=== PATIENT | female | born 1965 | race Caucasian/White ===

== ENCOUNTER 2016-10-16 09:37 | Inpatient (IN) | payer OTHER ==
[2016-10-16] MEDS ORDERED: Sodium Chloride 0.9% 1,000 ML IV ONE ×3 (10:08→14:21)
[2016-10-16] MEDS ORDERED: Sodium Chloride 0.9% 1,000 ML ONE (10:27)
[2016-10-16 10:54] LABS: BASO % 0.3 % (0.0-2.0); EOS % 0.2 % (0.0-4.0); HEMATOCRIT 42.4 % (34.0-47.0); LYMPH # 3.7 K/uL (1.0-4.3); LYMPH % 30.4 % (20.0-40.0); MEAN CELL VOLUME 87.3 fL (81.0-99.0); MEAN CORPUSCULAR HEMOGLOBIN 28.6 pg (27.0-31.0); MEAN CORPUSCULAR HGB CONC 32.8 g/dL (33.0-37.0); MONO # 1.1 K/uL (0.0-0.8); MONO % 8.9 % (0.0-10.0); RED CELL DISTRIBUTION WIDTH 13.5 % (11.5-14.5); WHITE BLOOD COUNT 12.1 K/uL (4.8-10.8)
[2016-10-16 10:57] LABS: RBC URINE 1 /hpf (0-3); URINE BACTERIA RARE (<OCC); URINE BILIRUBIN NEGATIVE (NEGATIVE); URINE BLOOD NEGATIVE (NEGATIVE); URINE COLOR Yellow (YELLOW); URINE GLUCOSE (UA) 3+ mg/dL (Normal); URINE KETONE 2+ mg/dL (NEGATIVE); URINE LEUKOCYTE ESTERASE NEG Leu/uL (Negative); URINE PROTEIN 2+ mg/dL (NEGATIVE); URINE UROBILINOGEN NORMAL mg/dL (0.2-1.0); WBC URINE 2 /hpf (0-5)
[2016-10-16 11:11] LABS: CHLORIDE 97 mmol/L (98-107); POTASSIUM 3.9 mmol/L (3.6-5.2); SODIUM 138 mmol/L (132-148)
[2016-10-16 11:13] LABS: BILIRUBIN,TOTAL 2.8 mg/dL (0.2-1.3); GFR AFRICAN-AMERICAN > 60
[2016-10-16 11:14] LABS: ALKALINE PHOSPHATASE 289 U/L (38-126); ALT/SGPT 303 U/L (9-52); AST/SGOT 637 U/L (14-36); BLOOD UREA NITROGEN 11 mg/dL (7-17); CARBON DIOXIDE 18 mmol/L (22-30); GLUCOSE,RANDOM 392 mg/dL (65-105); TOTAL PROTEIN 8.1 g/dL (6.3-8.3)
[2016-10-16] MEDS ORDERED: (Novolin R) Insulin Human Regular 100 units/ml vial SC ONE (11:18)
--- NOTE | 2016-10-16 11:20 | US ---
HISTORY: ruq pain +murphys sign COMPARISON: None available. TECHNIQUE: Sonographic evaluation of the abdomen. FINDINGS: LIVER: Measures 24.9 cm in sagittal dimension. Echogenic liver may be seen in setting of hepatic parenchymal disease or fatty infiltration. No focal hepatic mass identified. The main portal vein appears patent with normal directional flow. No intrahepatic bile duct dilatation. GALLBLADDER: Gallbladder sludge. No gallstones. Gallbladder wall thickening/pericholecystic edema measuring up to 5 mm. Positive sonographic Enriquez's sign as assessed by the pattern technician. COMMON BILE DUCT: Measures 1 cm. PANCREAS: Not well visualized. RIGHT KIDNEY: Measures 12.3 x 5.8 x 6.1cm. No obstructing calculus or hydronephrosis identified. 2.4 x 2.4 x 2.8 cm right exophytic renal cyst. LEFT KIDNEY: Measures 11.4 x 5.8 x 6.2cm. No obstructing calculus or hydronephrosis identified. SPLEEN: Measures approximately 10.4 cm. AORTA: Limited views appear unremarkable. IVC: Limited views appear unremarkable. OTHER FINDINGS: None. IMPRESSION: Gallbladder sludge, gallbladder wall thickening/pericholecystic edema, and positive sonographic Enriquez's sign. Correlate clinically for cholecystitis. Hepatomegaly. Echogenic liver may be seen in setting of hepatic parenchymal disease or fatty infiltration. 2.8 cm right renal cyst appears exophytic.
[2016-10-16] MEDS ORDERED: (Novolin R) Insulin Human Regular 100 units/ml vial ONE ×2 (11:33→14:28)
--- NOTE | 2016-10-16 11:42 | C.PDOC ---
History Of Present Illness 51 year old female with a history of HTN and diabetes presents to the ED with complaints of burning RUQ abdominal pain for two days that began after drinking hot chocolate. Patient notes nausea, one episode of vomiting, and subjective fever. She states she used pepcid with mild relief but pain returned. Patient denies prior similar episodes, diarrhea, or urinary symptoms. Time Seen by Provider: 10/16/16 09:46 Chief Complaint (Nursing): Abdominal Pain History Per: Patient History/Exam Limitations: no limitations Onset/Duration Of Symptoms: Days (2 days ) Current Symptoms Are (Timing): Still Present Location Of Pain/Discomfort: RUQ Quality Of Discomfort: Burning Associated Symptoms: Nausea, Vomiting. denies: Fever, Chills, Diarrhea, Urinary Symptoms Recent travel outside of the [place]: No Abnormal Vaginal Bleeding: No Past Medical History Reviewed: Historical Data, Nursing Documentation, Vital Signs Vital Signs: Last Vital Signs Temp 97.9 F 10/16/16 09:43 Pulse 91 H 10/16/16 17:49 Resp 20 10/16/16 17:49 BP 152/88 H 10/16/16 16:23 Pulse Ox 95 10/16/16 17:49 - Medical History PMH: HTN Family History: States: Unknown Family Hx - Social History Hx Alcohol Use: No Hx Substance Use: No - Immunization History Hx Tetanus Toxoid Vaccination: No Hx Influenza Vaccination: No Hx Pneumococcal Vaccination: No Review Of Systems Constitutional: Positive for: Fever. Negative for: Chills Cardiovascular: Negative for: Chest Pain, Palpitations Respiratory: Negative for: Cough, Shortness of Breath Gastrointestinal: Positive for: Nausea, Vomiting, Abdominal Pain. Negative for : Diarrhea Genitourinary: Negative for: Dysuria, Hematuria Musculoskeletal: Negative for: Back Pain Physical Exam - Physical Exam Appears: Non-toxic, In Acute Distress (patient appears very uncomfortable on exam ) Skin: Warm, Dry Head: Atraumatic, Normacephalic Eye(s): bilateral: Normal Inspection, EOMI Oral Mucosa: Moist Neck: Normal ROM, Supple Chest: Symmetrical, No Deformity Cardiovascular: Rhythm Regular, No Murmur Respiratory: Normal Breath Sounds, No Rales, No Rhonchi, No Wheezing Gastrointestinal/Abdominal: Bowel Sounds, Soft, Tenderness (epigastric and RUQ tenderness ), No Distention, No Guarding, No Rebound, Other (Positive Enriquez's sign ) Neurological/Psych: Oriented x3, Normal Speech, Normal Cognition ED Course And Treatment - Laboratory Results Result Diagrams: 10/16/16 10:26 10/16/16 13:09 O2 Sat by Pulse Oximetry: 97 (room air ) Progress Note: Venous study was ordered. Patient was given pepcid, zofran, insulin, and IV fluids. Medical Decision Making Medical Decision Making: message left for Dr Orta discussed with [facility] resident Dr Benz, he will come see pt. [address] Benz, surg resident. pt should go to med for gi consult/ercp/ mprc discussed with Dr Paredes/icu for consult for possible dka;. He recommends another liter ivf, some iv insulin, gi consult. does not think pt needs insulin drip at this time. [address] Coffman pt seen by Dr Coffman at 250 pm, mrcp ordered. pt later went to mri for test but refused. pt returned to ed. pt spoke with and now agrees to test, will send to test with ativan. pt to be admitted to icu for tonight. , Disposition Discussed With Dr.: David Del Castillo Doctor Will See Patient In The: Hospital - Disposition Disposition: HOSPITALIZED Disposition Time: 17:06 Condition: SERIOUS - Clinical Impression Clinical Impression: Cholecystitis, Abnormal LFTs (liver function tests), Hyperglycemia due to type 2 diabetes mellitus - Scribe Statement The provider has reviewed the documentation as recorded by the Scribe Kierra Ngo All medical record entries made by the Scribe were at my direction and personally dictated by me. I have reviewed the chart and agree that the record accurately reflects my personal performance of the history, physical exam, medical decision making, and the department course for this patient. I have also personally directed, reviewed, and agree with the discharge instructions and disposition.
[2016-10-16 11:49] LABS: VENOUS BLOOD GAS BASE EXCESS -8.1 mmol/L (0.0-2.0); VENOUS BLOOD GAS PCO2 37 mmHg (40-60); VENOUS BLOOD PH 7.29 (7.32-7.43)
[2016-10-16] MEDS ORDERED: Ciprofloxacin 400mg/200ml D5W 400 MG/200 ML BAG IVPB STA (12:05)
[2016-10-16] MEDS ORDERED: metroNIDAZOLE IV 500 mg/100 ml 500 MG/100 ML BAG IVPB STA (12:05)
[2016-10-16] MEDS ORDERED: metroNIDAZOLE IV 500 mg/100 ml 500 MG/100 ML BAG ONE (12:38)
[2016-10-16] MEDS ORDERED: Ciprofloxacin 400mg/200ml D5W 400 MG/200 ML BAG IVPB ONE (12:38)
[2016-10-16] MEDS ORDERED: Sodium Chloride 0.9% 1,000 ML IV SCH (13:00)
[2016-10-16 13:27] LABS: CHLORIDE 103 mmol/L (98-107); POTASSIUM 4.3 mmol/L (3.6-5.2); SODIUM 141 mmol/L (132-148)
[2016-10-16 13:29] LABS: BILIRUBIN,TOTAL 3.1 mg/dL (0.2-1.3); GFR AFRICAN-AMERICAN > 60
[2016-10-16 13:30] LABS: ALKALINE PHOSPHATASE 280 U/L (38-126); ALT/SGPT 446 U/L (9-52); BLOOD UREA NITROGEN 10 mg/dL (7-17); CARBON DIOXIDE 15 mmol/L (22-30); GLUCOSE,RANDOM 335 mg/dL (65-105); TOTAL PROTEIN 7.7 g/dL (6.3-8.3)
[2016-10-16 13:31] LABS: CALCIUM 9.2 mg/dl (8.6-10.4)
[2016-10-16 13:57] LABS: AST/SGOT 812 U/L (14-36)
[2016-10-16] MEDS ORDERED: (Novolin R) Insulin Human Regular 100 units/ml vial IV ONE (14:22)
--- NOTE | 2016-10-16 15:34 | CP.PCM.CON ---
History of Present Illness - History of Present Illness History of Present Illness: Asked by Dr. Del Castillo for a GI consultation on this patient. 51 year old female with history of DM, HTN, who presents to hospital with complaint of sudden onset abdominal pain which began 2 days ago. Prior to this she was in usual state of health. She describes a severe RUQ 10/10 intensity pain that is worse following meal consumption and movement. The pain at times radiates to back and is associated with nausea. She denies fever/chills, weight loss, rectal bleeding, or change in bowel habits. No prior endoscopic evaluation. Social history: non-smoker, no ETOH use Family history: reviewed, patient denies history of colon cancer Review of Systems - Review of Systems Review of Systems: - All other comprehensive 12 point review of systems performed, negative - Constitutional Constitutional: Chills - Cardiovascular Cardiovascular: absent: Acrocyanosis, Chest Pain, Chest Pain at Rest, Chest Pain with Activity, Claudication, Diaphoresis, Dyspnea, Dyspnea on Exertion, Edema, Irregular Heart Rhythm, Pain Radiating to Arm/Neck/Jaw, Leg Edema, Leg Ulcers, Lightheadedness, Orthopnea, Palpitations, Paroxysmal Nocturnal Dyspnea, Pedal Edema, Radiating Pain, Rapid Heart Rate, Slow Heart Rate, Syncope, Other - Respiratory Respiratory: absent: Cough, Dyspnea, Hemoptysis, Dyspnea on Exertion, Wheezing, Snoring, Stridor, Pain on Inspiration, Chest Congestion, Excessive Mucous Production, Change in Mucous Color, Pain with Coughing, Other - Gastrointestinal Gastrointestinal: Abdominal Pain, Nausea - Musculoskeletal Musculoskeletal: absent: Abnormal Gait, Arthralgias, Atrophy, Back Pain, Deformity, Joint Swelling, Limited Range of Motion, Loss of Height, Muscle Cramps, Muscle Weakness, Myalgias, Neck Pain, Numbness, Radiating Pain into Limb , Stiffness, Tingling, Other - Neurological Neurological: absent: Abnormal Gait, Abnormal Hearing, Abnormal Movements, Abnormal Speech, Behavioral Changes, Burning Sensations, Confusion, Convulsions , Disequilibrium, Dizziness, Numbness, Focal Weakness, Frequent Falls, Headaches , Lack of Coordination, Loss of Vision, Memory Loss, Paresthesias, Radicular Pain, Restless Legs, Sensory Deficit, Syncope, Tingling, Tremor, Vertigo, Weakness, Other Visual Disturbances, Other Past Patient History - Past Social History Smoking Status: Never Smoked - CARDIAC Hx Hypertension: Yes - ENDOCRINE/METABOLIC Hx Diabetes Mellitus Type 2: Yes - GENITOURINARY/GYNECOLOGICAL Hx Genitourinary Disorders: Yes - PSYCHIATRIC Hx Substance Use: No - SURGICAL HISTORY Hx Surgeries: No - ANESTHESIA Hx Anesthesia: No Meds Allergies/Adverse Reactions: Allergies Allergy/AdvReac Type Severity Reaction Status Date / Time Penicillins Allergy Verified 10/16/16 09:46 - Medications Medications: Current Medications Sodium Chloride (Sodium Chloride 0.9%) 1,000 mls @ 100 mls/hr IV .Q10H ONE Stop: 10/16/16 20:07 Last Admin: 10/16/16 10:37 Dose: 100 mls/hr Sodium Chloride (Sodium Chloride 0.9%) 1,000 mls @ 100 mls/hr IV .Q10H [facility] Last Admin: 10/16/16 14:25 Dose: Not Given Physical Exam - Constitutional Appears: Non-toxic, No Acute Distress - Head Exam Head Exam: NORMAL INSPECTION - Eye Exam Eye Exam: EOMI, Normal appearance - ENT Exam ENT Exam: Mucous Membranes Moist - Respiratory Exam Respiratory Exam: Clear to Auscultation Bilateral - Cardiovascular Exam Cardiovascular Exam: REGULAR RHYTHM, +S1, +S2 - GI/Abdominal Exam GI & Abdominal Exam: Normal Bowel Sounds, Soft, Tenderness Additional comments: sharp RUQ tenderness to palpation with guarding, +Enriquez's no palpable hepato/splenomegaly - Extremities Exam Extremities exam: Positive for: normal inspection - Neurological Exam Neurological exam: Alert, CN II-XII Intact, Oriented x3, Reflexes Normal - Psychiatric Exam Psychiatric exam: Normal Affect, Normal Mood - Skin Skin Exam: Dry, Intact, Normal Color, Warm Results - Vital Signs Recent Vital Signs: Last Vital Signs Temp 97.9 F 10/16/16 09:43 Pulse 95 H 10/16/16 15:03 Resp 18 10/16/16 15:03 BP 154/87 H 10/16/16 15:03 Pulse Ox 96 10/16/16 15:03 - Labs Result Diagrams: 10/16/16 10:26 10/16/16 13:09 Labs: Laboratory Results - last 24 hr 10/16/16 10/16/16 10/16/16 10:08 10:26 10:26 WBC 12.1 H RBC 4.86 Hgb 13.9 Hct 42.4 MCV 87.3 MCH 28.6 MCHC 32.8 L RDW 13.5 Plt Count 220 MPV 10.0 Neut % (Auto) 60.2 Lymph % (Auto) 30.4 [place] % (Auto) 8.9 Eos % (Auto) 0.2 Baso % (Auto) 0.3 Neut # 7.3 H Lymph # 3.7 [place] # 1.1 H Eos # 0.0 Baso # 0.0 pO2 VBG pH VBG pCO2 VBG HCO3 VBG Total CO2 VBG O2 Sat (Calc) VBG Base Excess VBG Potassium Glucose Lactate Sodium 138 Potassium 3.9 Chloride 97 L Carbon Dioxide 18 L Anion Gap 27 H BUN 11 Creatinine 0.6 L Est GFR ( Amer) > 60 Est GFR (Non-Af Amer) > 60 POC Glucose (mg/dL) Random Glucose 392 H Serum Osmolality Calcium 10.0 Total Bilirubin 2.8 H AST 637 H ALT 303 H Alkaline Phosphatase 289 H Total Protein 8.1 Albumin 4.1 Globulin 4.0 H Albumin/Globulin Ratio 1.0 Lipase 95 Venous Blood Potassium Urine Color Yellow Urine Clarity Clear Urine pH 5.0 Ur Specific [place] 1.033 H Urine Protein 2+ H Urine Glucose (UA) 3+ H Urine Ketones 2+ H Urine Blood Negative Urine Nitrate Negative Urine Bilirubin Negative Urine Urobilinogen Normal Ur Leukocyte Esterase Neg Urine WBC (Auto) 2 Urine RBC (Auto) 1 Ur Squamous Epith Cells 4 Urine Bacteria Rare Serum Ketones 10/16/16 10/16/16 10/16/16 10:30 11:40 12:49 WBC RBC Hgb Hct MCV MCH MCHC RDW Plt Count MPV Neut % (Auto) Lymph % (Auto) [place] % (Auto) Eos % (Auto) Baso % (Auto) Neut # Lymph # [place] # Eos # Baso # pO2 36 VBG pH 7.29 L VBG pCO2 37 L VBG HCO3 17.6 VBG Total CO2 18.9 L VBG O2 Sat (Calc) 69.3 H VBG Base Excess -8.1 L VBG Potassium 3.9 Glucose 392 H Lactate 1.4 Sodium 136.0 Potassium Chloride 103.0 Carbon Dioxide Anion Gap BUN Creatinine Est GFR ( Amer) Est GFR (Non-Af Amer) POC Glucose (mg/dL) 364 H 327 H Random Glucose Serum Osmolality Calcium Total Bilirubin AST ALT Alkaline Phosphatase Total Protein Albumin Globulin Albumin/Globulin Ratio Lipase Venous Blood Potassium 3.9 Urine Color Urine Clarity Urine pH Ur Specific [place] Urine Protein Urine Glucose (UA) Urine Ketones Urine Blood Urine Nitrate Urine Bilirubin Urine Urobilinogen Ur Leukocyte Esterase Urine WBC (Auto) Urine RBC (Auto) Ur Squamous Epith Cells Urine Bacteria Serum Ketones 10/16/16 10/16/16 10/16/16 13:09 14:25 15:06 WBC RBC Hgb Hct MCV MCH MCHC RDW Plt Count MPV Neut % (Auto) Lymph % (Auto) [place] % (Auto) Eos % (Auto) Baso % (Auto) Neut # Lymph # [place] # Eos # Baso # pO2 VBG pH VBG pCO2 VBG HCO3 VBG Total CO2 VBG O2 Sat (Calc) VBG Base Excess VBG Potassium Glucose Lactate Sodium 141 Potassium 4.3 Chloride 103 Carbon Dioxide 15 L Anion Gap 27 H BUN 10 Creatinine 0.5 L Est GFR ( Amer) > 60 Est GFR (Non-Af Amer) > 60 POC Glucose (mg/dL) 334 H Random Glucose 335 H Serum Osmolality 302 H Calcium 9.2 Total Bilirubin 3.1 H AST 812 H D ALT 446 H D Alkaline Phosphatase 280 H Total Protein 7.7 Albumin 3.9 Globulin 3.8 Albumin/Globulin Ratio 1.0 Lipase Venous Blood Potassium Urine Color Urine Clarity Urine pH Ur Specific [place] Urine Protein Urine Glucose (UA) Urine Ketones Urine Blood Urine Nitrate Urine Bilirubin Urine Urobilinogen Ur Leukocyte Esterase Urine WBC (Auto) Urine RBC (Auto) Ur Squamous Epith Cells Urine Bacteria Serum Ketones Trace Assessment & Plan - Assessment and Plan (Free Text) Assessment: DM HTN Abdominal pain Transaminitis Abdominal US reviewed by me showing dilated CBD of 1 cm, gallbladder wall thickening with lg-cholecystic fluid. Clinical features suggestive of acute cholecystitis. Plan: - NPO - Continue with antibiotic therapy - Obtain blood cultures - Fractionate bilirubin - Given rising LFTs, bilirubin with evidence of dilated CBD on sonogram, would obtain MRCP to rule out choledocholithiasis - Follow up surgical recommendations - Will continue to monitor patient clinical course
--- NOTE | 2016-10-16 16:23 | CP.PCM.CON ---
<Artemio Benz - Last Filed: 10/16/16 16:15> History of Present Illness - History of Present Illness History of Present Illness: Pt is 51 y/o female with a PMHx of DM and HTN who presented to the ED earlier today complaining of RUQ pain that started 2 days ago. Pt states the first day the pain was tolerable but it became progressively worst last night rating the pain a 6/10 and awakening her from her sleep. Pt states that she vomited earlier this morning and has also been feeling nauseous. Pt tried taking Pepcid for pain relief but this was not successful. Pt states that she does not experience pain after eating food. Pt admits to fevers (subjective), chills, nausea and vomiting. 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 Denies alcohol use. Review of Systems - Review of Systems Review of Systems: 12 point ROS unremarkable, unless otherwise stated in HPI. Past Patient History - Past Medical History & Family History Past Medical History?: Yes - Past Social History Smoking Status: Never Smoked - CARDIAC Hx Hypertension: Yes - ENDOCRINE/METABOLIC Hx Diabetes Mellitus Type 2: Yes - GENITOURINARY/GYNECOLOGICAL Hx Genitourinary Disorders: Yes - PSYCHIATRIC Hx Substance Use: No - SURGICAL HISTORY Hx Surgeries: No - ANESTHESIA Hx Anesthesia: No Meds Allergies/Adverse Reactions: Allergies Allergy/AdvReac Type Severity Reaction Status Date / Time Penicillins Allergy Verified 10/16/16 09:46 - Medications Medications: Current Medications Sodium Chloride (Sodium Chloride 0.9%) 1,000 mls @ 100 mls/hr IV .Q10H ONE Stop: 10/16/16 20:07 Last Admin: 10/16/16 10:37 Dose: 100 mls/hr Sodium Chloride (Sodium Chloride 0.9%) 1,000 mls @ 100 mls/hr IV .Q10H [facility] Last Admin: 10/16/16 14:25 Dose: Not Given Physical Exam - Constitutional Appears: Non-toxic, No Acute Distress - Head Exam Head Exam: ATRAUMATIC - Eye Exam Eye Exam: EOMI - ENT Exam ENT Exam: Mucous Membranes Moist - Respiratory Exam Respiratory Exam: NORMAL BREATHING PATTERN - Cardiovascular Exam Cardiovascular Exam: +S1, +S2 - GI/Abdominal Exam GI & Abdominal Exam: Soft, Tenderness Additional comments: RUQ pain upon palpation + Enriquez's - Extremities Exam Extremities exam: Positive for: pedal pulses present - Neurological Exam Neurological exam: Alert, Oriented x3 - Psychiatric Exam Psychiatric exam: Normal Affect, Normal Mood - Skin Skin Exam: Intact, Normal Color, Warm Results - Vital Signs Recent Vital Signs: Last Vital Signs Temp 97.9 F 10/16/16 09:43 Pulse 95 H 10/16/16 15:03 Resp 18 10/16/16 15:03 BP 154/87 H 10/16/16 15:03 Pulse Ox 96 10/16/16 15:03 - Labs Result Diagrams: 10/16/16 10:26 10/16/16 13:09 Labs: Laboratory Results - last 24 hr 10/16/16 10/16/16 10/16/16 10:08 10:26 10:26 WBC 12.1 H RBC 4.86 Hgb 13.9 Hct 42.4 MCV 87.3 MCH 28.6 MCHC 32.8 L RDW 13.5 Plt Count 220 MPV 10.0 Neut % (Auto) 60.2 Lymph % (Auto) 30.4 [place] % (Auto) 8.9 Eos % (Auto) 0.2 Baso % (Auto) 0.3 Neut # 7.3 H Lymph # 3.7 [place] # 1.1 H Eos # 0.0 Baso # 0.0 pO2 VBG pH VBG pCO2 VBG HCO3 VBG Total CO2 VBG O2 Sat (Calc) VBG Base Excess VBG Potassium Glucose Lactate Sodium 138 Potassium 3.9 Chloride 97 L Carbon Dioxide 18 L Anion Gap 27 H BUN 11 Creatinine 0.6 L Est GFR ( Amer) > 60 Est GFR (Non-Af Amer) > 60 POC Glucose (mg/dL) Random Glucose 392 H Serum Osmolality Calcium 10.0 Total Bilirubin 2.8 H AST 637 H ALT 303 H Alkaline Phosphatase 289 H Total Protein 8.1 Albumin 4.1 Globulin 4.0 H Albumin/Globulin Ratio 1.0 Lipase 95 Venous Blood Potassium Urine Color Yellow Urine Clarity Clear Urine pH 5.0 Ur Specific [place] 1.033 H Urine Protein 2+ H Urine Glucose (UA) 3+ H Urine Ketones 2+ H Urine Blood Negative Urine Nitrate Negative Urine Bilirubin Negative Urine Urobilinogen Normal Ur Leukocyte Esterase Neg Urine WBC (Auto) 2 Urine RBC (Auto) 1 Ur Squamous Epith Cells 4 Urine Bacteria Rare Serum Ketones 10/16/16 10/16/16 10/16/16 10:30 11:40 12:49 WBC RBC Hgb Hct MCV MCH MCHC RDW Plt Count MPV Neut % (Auto) Lymph % (Auto) [place] % (Auto) Eos % (Auto) Baso % (Auto) Neut # Lymph # [place] # Eos # Baso # pO2 36 VBG pH 7.29 L VBG pCO2 37 L VBG HCO3 17.6 VBG Total CO2 18.9 L VBG O2 Sat (Calc) 69.3 H VBG Base Excess -8.1 L VBG Potassium 3.9 Glucose 392 H Lactate 1.4 Sodium 136.0 Potassium Chloride 103.0 Carbon Dioxide Anion Gap BUN Creatinine Est GFR ( Amer) Est GFR (Non-Af Amer) POC Glucose (mg/dL) 364 H 327 H Random Glucose Serum Osmolality Calcium Total Bilirubin AST ALT Alkaline Phosphatase Total Protein Albumin Globulin Albumin/Globulin Ratio Lipase Venous Blood Potassium 3.9 Urine Color Urine Clarity Urine pH Ur Specific [place] Urine Protein Urine Glucose (UA) Urine Ketones Urine Blood Urine Nitrate Urine Bilirubin Urine Urobilinogen Ur Leukocyte Esterase Urine WBC (Auto) Urine RBC (Auto) Ur Squamous Epith Cells Urine Bacteria Serum Ketones 10/16/16 10/16/16 10/16/16 13:09 14:25 15:06 WBC RBC Hgb Hct MCV MCH MCHC RDW Plt Count MPV Neut % (Auto) Lymph % (Auto) [place] % (Auto) Eos % (Auto) Baso % (Auto) Neut # Lymph # [place] # Eos # Baso # pO2 VBG pH VBG pCO2 VBG HCO3 VBG Total CO2 VBG O2 Sat (Calc) VBG Base Excess VBG Potassium Glucose Lactate Sodium 141 Potassium 4.3 Chloride 103 Carbon Dioxide 15 L Anion Gap 27 H BUN 10 Creatinine 0.5 L Est GFR ( Amer) > 60 Est GFR (Non-Af Amer) > 60 POC Glucose (mg/dL) 334 H Random Glucose 335 H Serum Osmolality 302 H Calcium 9.2 Total Bilirubin 3.1 H AST 812 H D ALT 446 H D Alkaline Phosphatase 280 H Total Protein 7.7 Albumin 3.9 Globulin 3.8 Albumin/Globulin Ratio 1.0 Lipase Venous Blood Potassium Urine Color Urine Clarity Urine pH Ur Specific [place] Urine Protein Urine Glucose (UA) Urine Ketones Urine Blood Urine Nitrate Urine Bilirubin Urine Urobilinogen Ur Leukocyte Esterase Urine WBC (Auto) Urine RBC (Auto) Ur Squamous Epith Cells Urine Bacteria Serum Ketones Trace Assessment & Plan - Assessment and Plan (Free Text) Assessment: 51 y/o female with acute cholecystitis r/o choledocholithiasis - NPO - IVF - Abx - MRCP - GI recs appreciated - Will make further recommendations upon results of imaging studies - DVT / GI prophylaxis Further recs per Dr. Nicole Benz PGY 2 <Casey Rivera - Last Filed: 10/16/16 19:38> Meds - Medications Medications: Current Medications Hydromorphone HCl (Dilaudid) 0.5 mg IVP Q4H PRN PRN Reason: Pain, moderate (4-7) Metronidazole (Flagyl) 500 mg in 100 mls @ 100 mls/hr IVPB Q8 [facility] Ciprofloxacin (Cipro 400mg/200ml Dsw) 400 mg in 200 mls @ 133 mls/hr IVPB Q12H [facility] Sodium Chloride (Sodium Chloride 0.45%) 1,000 mls @ 125 mls/hr IV .Q8H [facility] Last Admin: 10/16/16 18:15 Dose: 125 mls/hr Ondansetron HCl (Zofran Inj) 4 mg IVP Q6H PRN PRN Reason: Nausea/Vomiting Pantoprazole Sodium (Protonix Inj) 40 mg IVP DAILY [facility] Results - Vital Signs Recent Vital Signs: Last Vital Signs Temp 97.9 F 10/16/16 09:43 Pulse 91 H 10/16/16 17:49 Resp 20 10/16/16 17:49 BP 152/88 H 10/16/16 16:23 Pulse Ox 97 10/16/16 18:54 - Labs Result Diagrams: 10/16/16 10:26 10/16/16 13:09 Labs: Laboratory Results - last 24 hr 10/16/16 18:10 POC Glucose (mg/dL) 235 H Attending/Attestation - Attestation I have personally seen and examined this patient.: Yes I have fully participated in the care of the patient.: Yes I have reviewed all pertinent clinical information: Yes Notes (Text): 10/16/16 19:37 Pt was seen and examined at bedside Agree with above note and assessment Pt with Cholecystitis with Dilated CBD Abdomen: Soft, Tender, Enriquez's sign positive Neck exam: Supple, No thyromegaly, No JVD Skin: warm ,dry no ulceration Labs and radiology reivewed GI consult MRCP C.w IV antibiotics Plan d.w pt in detail Risk and benefit explained in detail.
[2016-10-16] MEDS ORDERED: Piperacillin/Tazobact 3.375 GM in Sodium Chloride 100 ML IVPB SCH (17:00)
[2016-10-16] MEDS ORDERED: Ciprofloxacin 400mg/200ml D5W 400 MG/200 ML BAG IVPB SCH (17:15)
--- NOTE | 2016-10-16 17:54 | CP.PCM.CON ---
History of Present Illness - History of Present Illness History of Present Illness: Chief complaint: Abdominal pain History present illness: 51-year-old female with history of diabetes hypertension came to the emergency room with the sudden onset of abdominal pain, started last night. Patient started having severe abdominal pain, and associated with the nausea and vomiting. Last night he continued to have more pain, this morning pain continues to be there, she started also vomiting and came to the emergency room. She was not able to eat well. She did have a fever, chills. And associated with the shivering. She did not have any symptoms in the past. Currently she is taking medication for diabetes as well as hypertension Past medical history diabetes hypertension high cholesterol Allergy: Allergic to penicillin. Personal history: Nonsmoker nonalcoholic. No past surgical history Family history noncontributory Review of system: Patient is currently having no headache, but the chills and the body pain, abdominal pain, nausea vomiting noted. No diarrhea. Vital signs reviewed No neck vein distention noted Chest good air entry bilaterally, no wheezing or rales noted CVS regular heart sound, no murmur noted Abdominal tenderness severely noted on the right upper quadrant region Extremities no pedal edema [employer]OUNT[employer] alert awake oriented 3, no functional neurological deficit Labs reviewed in Mild elevation of the anion gap noted. Sonogram showing evidence of cholecystitis, and a CBD dilatation. Patient underwent MRCP, the suspending Patient was seen by solvent recoverer, and associated, I spoke to them already Assessment and recommendation: 51-year-old female with history of diabetes and hypertension now admitted with acute cholecystitis, with the CBD dilatation, possible CBD obstruction. MRCP pending. Patient will follow-up by solvent recoverer for possible ERCP. Patient will need surgical intervention. Currently will continue the IV fluid antibiotic pain medication and will follow the patient. Patient will be admitted to the intensive care unit. IV hydration. Continue the current management Past Patient History - Past Medical History & Family History Past Medical History?: Yes - Past Social History Smoking Status: Never Smoked - CARDIAC Hx Hypertension: Yes - ENDOCRINE/METABOLIC Hx Diabetes Mellitus Type 2: Yes - GENITOURINARY/GYNECOLOGICAL Hx Genitourinary Disorders: Yes - PSYCHIATRIC Hx Substance Use: No - SURGICAL HISTORY Hx Surgeries: No - ANESTHESIA Hx Anesthesia: No Meds Allergies/Adverse Reactions: Allergies Allergy/AdvReac Type Severity Reaction Status Date / Time Penicillins Allergy Verified 10/16/16 09:46 - Medications Medications: Current Medications Hydromorphone HCl (Dilaudid) 0.5 mg IVP Q4H PRN PRN Reason: Pain, moderate (4-7) Sodium Chloride (Sodium Chloride 0.9%) 1,000 mls @ 100 mls/hr IV .Q10H ONE Stop: 10/16/16 20:07 Last Admin: 10/16/16 10:37 Dose: 100 mls/hr Sodium Chloride (Sodium Chloride 0.9%) 1,000 mls @ 100 mls/hr IV .Q10H [facility] Last Admin: 10/16/16 14:25 Dose: Not Given Metronidazole (Flagyl) 500 mg in 100 mls @ 100 mls/hr IVPB Q8 [facility] Ciprofloxacin (Cipro 400mg/200ml Dsw) 400 mg in 200 mls @ 133 mls/hr IVPB Q12H [facility] Ondansetron HCl (Zofran Inj) 4 mg IVP Q6H PRN PRN Reason: Nausea/Vomiting Pantoprazole Sodium (Protonix Inj) 40 mg IVP DAILY [facility] Results - Vital Signs Recent Vital Signs: Last Vital Signs Temp 97.9 F 10/16/16 09:43 Pulse 95 H 10/16/16 16:23 Resp 16 10/16/16 16:23 BP 152/88 H 10/16/16 16:23 Pulse Ox 97 10/16/16 17:08 - Labs Result Diagrams: 10/16/16 10:26 10/16/16 13:09
[2016-10-16] MEDS: Sodium Chloride 0.45% 1,000 ML IV SCH (18:15)
--- NOTE | 2016-10-16 19:03 | CP.PCM.HP ---
Past Patient History - Past Medical History & Family History Past Medical History?: Yes - Past Social History Smoking Status: Never Smoked - CARDIAC Hx Hypertension: Yes - ENDOCRINE/METABOLIC Hx Diabetes Mellitus Type 2: Yes - MUSCULOSKELETAL/RHEUMATOLOGICAL Hx Falls: No - GENITOURINARY/GYNECOLOGICAL Hx Genitourinary Disorders: Yes - PSYCHIATRIC Hx Substance Use: No - SURGICAL HISTORY Hx Surgeries: No - ANESTHESIA Hx Anesthesia: No Meds Allergies/Adverse Reactions: Allergies Allergy/AdvReac Type Severity Reaction Status Date / Time Penicillins Allergy Verified 10/16/16 09:46 Physical Exam - Constitutional Appears: Well - Head Exam Head Exam: ATRAUMATIC, NORMAL INSPECTION, NORMOCEPHALIC - Eye Exam Eye Exam: EOMI, Normal appearance, PERRL Pupil Exam: NORMAL ACCOMODATION, PERRL - ENT Exam ENT Exam: Mucous Membranes Moist, Normal Exam - Neck Exam Neck exam: Positive for: Normal Inspection - Respiratory Exam Respiratory Exam: Decreased Breath Sounds - Cardiovascular Exam Cardiovascular Exam: REGULAR RHYTHM, +S1, +S2 - GI/Abdominal Exam GI & Abdominal Exam: Diminished Bowel Sounds, Soft - Rectal Exam Rectal Exam: Deferred Results - Vital Signs Recent Vital Signs: Last Vital Signs Temp 97.9 F 10/16/16 09:43 Pulse 91 H 10/16/16 17:49 Resp 20 10/16/16 17:49 BP 152/88 H 10/16/16 16:23 Pulse Ox 97 10/16/16 18:54 - Labs Result Diagrams: 10/16/16 10:26 10/16/16 13:09 Labs: Laboratory Results - last 24 hr 10/16/16 18:10 POC Glucose (mg/dL) 235 H
[2016-10-16] MEDS: metroNIDAZOLE IV 500 mg/100 ml 500 MG/100 ML BAG IVPB SCH (22:00)
[2016-10-16] MEDS: Ciprofloxacin 400mg/200ml D5W 400 MG/200 ML BAG IVPB SCH (23:00)
[2016-10-17] MEDS: Sodium Chloride 0.45% 1,000 ML IV SCH ×4 (02:30→15:31)
[2016-10-17] MEDS: (Novolin R) Insulin Human Regular 100 units/ml vial SC SCH ×4 (06:00→17:42)
[2016-10-17] MEDS: metroNIDAZOLE IV 500 mg/100 ml 500 MG/100 ML BAG IVPB SCH ×3 (06:25→21:20)
[2016-10-17 06:52] LABS: BASO # 0.1 K/uL (0.0-0.2); BASO % 0.5 % (0.0-2.0); EOS % 0.2 % (0.0-4.0); LYMPH # 4.1 K/uL (1.0-4.3); LYMPH % 29.8 % (20.0-40.0); MEAN CELL VOLUME 88.6 fL (81.0-99.0); MEAN CORPUSCULAR HEMOGLOBIN 29.3 pg (27.0-31.0); MEAN CORPUSCULAR HGB CONC 33.1 g/dL (33.0-37.0); MEAN PLATELET VOLUME 9.3 fL (7.2-11.7); MONO # 1.3 K/uL (0.0-0.8); RED CELL DISTRIBUTION WIDTH 13.8 % (11.5-14.5); WHITE BLOOD COUNT 13.9 K/uL (4.8-10.8)
[2016-10-17 06:54] LABS: INR 1.2
[2016-10-17 07:17] LABS: CHLORIDE 105 mmol/L (98-107); POTASSIUM 4.1 mmol/L (3.6-5.2); SODIUM 137 mmol/L (132-148)
[2016-10-17 07:19] LABS: GFR AFRICAN-AMERICAN > 60
[2016-10-17 07:20] LABS: ALB/GLOB RATIO 0.9 (1.0-2.1); ALKALINE PHOSPHATASE 304 U/L (38-126); ALT/SGPT 650 U/L (9-52); BILIRUBIN,TOTAL 4.7 mg/dL (0.2-1.3); BLOOD UREA NITROGEN 7 mg/dL (7-17); CALCIUM 9.2 mg/dl (8.6-10.4); CARBON DIOXIDE 12 mmol/L (22-30); GLUCOSE,RANDOM 213 mg/dL (65-105); PHOSPHOROUS 2.5 mg/dL (2.5-4.5); TOTAL PROTEIN 7.4 g/dL (6.3-8.3)
[2016-10-17 07:21] LABS: MAGNESIUM 1.9 mg/dL (1.6-2.3)
[2016-10-17 07:34] LABS: AST/SGOT 765 U/L (14-36)
--- NOTE | 2016-10-17 09:08 | CP.PCM.PN ---
<Asad Del Castillo - Last Filed: 10/17/16 09:04> Subjective - Date & Time of Evaluation Date of Evaluation: 10/17/16 Time of Evaluation: 08:00 - Subjective Subjective: PGY4 GI Progress Note Pt seen and examined bedside Abd pain improved overnight Return of appetite wants fluids and food Denies any fever, chills, diaphoresis No other complaints No BM since admission refused BW last night ROS: 10 point ROS conducted, other than what is mentioned above; neg Objective - Vital Signs/Intake and Output Vital Signs (last 24 hours): Temp Pulse Resp BP Pulse Ox 98.5 F 84 27 H 145/85 95 10/17/16 04:00 10/17/16 07:00 10/17/16 07:00 10/17/16 07:01 10/17/16 07:00 Intake and Output: 10/17/16 10/17/16 06:59 18:59 Intake Total 1400 125 Output Total 700 Balance 700 125 - Medications Medications: Current Medications Hydromorphone HCl (Dilaudid) 0.5 mg IVP Q4H PRN PRN Reason: Pain, moderate (4-7) Metronidazole (Flagyl) 500 mg in 100 mls @ 100 mls/hr IVPB Q8 [facility] Last Admin: 10/17/16 06:25 Dose: 100 mls/hr Ciprofloxacin (Cipro 400mg/200ml Dsw) 400 mg in 200 mls @ 133 mls/hr IVPB Q12H [facility] Last Admin: 10/16/16 23:00 Dose: 133 mls/hr Sodium Chloride (Sodium Chloride 0.45%) 1,000 mls @ 125 mls/hr IV .Q8H [facility] Last Admin: 10/17/16 05:10 Dose: Not Given Insulin Human Regular (Novolin R) 0 unit SC Q6H [facility] PRN Reason: Protocol Last Admin: 10/17/16 06:00 Dose: Not Given Ondansetron HCl (Zofran Inj) 4 mg IVP Q6H PRN PRN Reason: Nausea/Vomiting Pantoprazole Sodium (Protonix Inj) 40 mg IVP DAILY [facility] - Labs Labs: 10/17/16 06:38 10/17/16 06:36 PT 12.9 SECONDS (9.7-12.2) H 10/17/16 06:38 INR 1.2 10/17/16 06:38 APTT 26 SECONDS (21-34) 10/17/16 06:38 - Constitutional Appears: Well, No Acute Distress - Head Exam Head Exam: ATRAUMATIC, NORMOCEPHALIC - Eye Exam Eye Exam: Normal appearance - ENT Exam ENT Exam: Mucous Membranes Moist, Normal Exam - Respiratory Exam Respiratory Exam: Clear to Ausculation Bilateral, NORMAL BREATHING PATTERN. absent: Rales, Rhonchi, Wheezes, Respiratory Distress - GI/Abdominal Exam GI & Abdominal Exam: Soft, Tenderness (RUQ pain ), Normal Bowel Sounds. absent : Diminished Bowel Sounds, Hypoactive Bowel Sounds - Extremities Exam Extremities Exam: absent: Joint Swelling, Pedal Edema - Neurological Exam Neurological Exam: Alert, Awake, Oriented x3 - Psychiatric Exam Psychiatric exam: Normal Affect, Normal Mood - Skin Skin Exam: Dry, Intact, Normal Color, Warm Assessment and Plan - Assessment and Plan (Free Text) Assessment: Braden Castillo is a 51F w/ hx of who presented rith RUQ and anion gap met acidosis. Etiology of the RUQ pain is likely 2/2 cholecystitis. Pt also has concurrent elevated in LFTs including direct janes and alk phos, though MRCP was neg for CBD stone, cannot rule out obstruction, CBD still dilated around 1 cm and LFTs are worsening Cholecystitis Transaminema 2/2 to above, r/o CBD pathology and/or obstruction Anion Gap Metabolic Acidosis, DKA? Plan: -MRCP reviewed and report acknowledged -Spoke with Dr. Rodriguez, will get ERCP today -Keep NPO for now -Surg on board, will eventually require lap poli -continue abx as per ID, including aztreonam and flagyl -Blood culture pending -Correction and w/u of met acidosis as per ICU team -Can advance diet to clears after ERCP D/W Dr. Coffman <Samy Coffman - Last Filed: 10/17/16 09:34> Objective - Vital Signs/Intake and Output Vital Signs (last 24 hours): Temp Pulse Resp BP Pulse Ox 98.5 F 84 27 H 145/85 95 10/17/16 04:00 10/17/16 07:00 10/17/16 07:00 10/17/16 07:01 10/17/16 07:00 Intake and Output: 10/17/16 10/17/16 06:59 18:59 Intake Total 1400 125 Output Total 700 Balance 700 125 - Medications Medications: Current Medications Hydromorphone HCl (Dilaudid) 0.5 mg IVP Q4H PRN PRN Reason: Pain, moderate (4-7) Metronidazole (Flagyl) 500 mg in 100 mls @ 100 mls/hr IVPB Q8 [facility] Last Admin: 10/17/16 06:25 Dose: 100 mls/hr Ciprofloxacin (Cipro 400mg/200ml Dsw) 400 mg in 200 mls @ 133 mls/hr IVPB Q12H [facility] Last Admin: 10/16/16 23:00 Dose: 133 mls/hr Sodium Chloride (Sodium Chloride 0.45%) 1,000 mls @ 125 mls/hr IV .Q8H [facility] Last Admin: 10/17/16 05:10 Dose: Not Given Insulin Human Regular (Novolin R) 0 unit SC Q6H [facility] PRN Reason: Protocol Last Admin: 10/17/16 06:00 Dose: Not Given Ondansetron HCl (Zofran Inj) 4 mg IVP Q6H PRN PRN Reason: Nausea/Vomiting Pantoprazole Sodium (Protonix Inj) 40 mg IVP DAILY [facility] - Labs Labs: 10/17/16 06:38 10/17/16 06:36 PT 12.9 SECONDS (9.7-12.2) H 10/17/16 06:38 INR 1.2 10/17/16 06:38 APTT 26 SECONDS (21-34) 10/17/16 06:38 Attending/Attestation - Attestation I have personally seen and examined this patient.: Yes I have fully participated in the care of the patient.: Yes I have reviewed all pertinent clinical information, including history, physical exam and plan: Yes Notes (Text): 10/17/16 09:28 I have seen and examined patient with GI fellow. She is seen ambulating in room , appears comfortable. She still describes RUQ abdominal pain, though much improved compared to yesterday. She denies nausea, vomiting, fever/chills. Review of vitals from today are normal. DM Abdominal pain, acute cholecystitis Transaminitis MRCP reviewed by me showing intra/extra hepatic biliary dilation with distal CBD stone consistent with choledocholithiasis - NPO - Continue with antibiotic therapy, monitor blood culture results - Continue with IVF hydration - Patient to undergo ERCP today with Dr. Rodriguez given presence of choledocholithiasis, follow up results - Continue to monitor LFTs - Patient will require eventual cholecystectomy, follow up surgical recommendations regarding timing
--- NOTE | 2016-10-17 09:18 | MRI ---
PROCEDURE: Magnetic Resonance Cholangiopancreatography HISTORY: COMPARISON: Comparison is made to the previous ultrasound of the abdomen dated 10/16/2016. TECHNIQUE: Multiplanar, multisequence MR images of the abdomen were obtained, including heavily T2 weighted MRCP images of the biliary system. Rotating maximum intensity projection images of the biliary system were generated. FINDINGS: MRCP: The common bile duct is mildly dilated. There is a filling defect at the distal common bile duct highly suspicious for choledocholithiasis measures approximately 6.5 millimeter. LIVER: Moderate hepatic steatosis is again noted there is slight intrahepatic biliary ductal dilatation. No evidence of suspicious mass in the liver in this noncontrast study. [id number] hepatomegaly measures up to 24.5 centimeter in the longitudinal diameter. GALLBLADDER: The gallbladder is mildly distended demonstrate diffuse wall thickening and surrounding with trace pericholecystic fluid. The possibility of acute cholecystitis should be considered. There is a fluid fluid level or sludge fluid level seen at the dependent portion of the gallbladder. SPLEEN: Unremarkable. PANCREAS: Unremarkable. ADRENALS: Unremarkable. KIDNEYS: Unremarkable. AORTA: No aneurysm. ASCITES: None. OTHER FINDINGS: None. IMPRESSION: Mildly dilated intrahepatic and extrahepatic biliary ducts. Filling defect at the distal CBD highly suspicious for choledocholithiasis. Moderate hepatic steatosis. Distended gallbladder demonstrate diffuse wall thickening and surrounding with pericholecystic fluid likely contains sludge with findings suggestive of acute cholecystitis. Please correlate clinically. Preliminary report was submitted by virtual Radiology. Additional findings and discrepancy from the preliminary report were mentioned in the above report.
[2016-10-17 10:16] LABS: ABG ALLEN TEST POS; ARTERIAL BLOOD HGB O2 SAT 94.5 % (95.0-98.0); CARBOXYHEMOGLOBIN 2.2 % (0.5-1.5); DRAW SITE RR; HHB 2.5 % (0.0-5.0); METHEMOGLOBIN 0.8 % (0.0-3.0)
[2016-10-17] MEDS ORDERED: Propofol 10 mg/ml Inj (20 ML) ONE ×2 (11:17→11:30)
[2016-10-17] MEDS ORDERED: Midazolam 2 MG/2 ML VIAL ONE (11:17)
[2016-10-17] MEDS ORDERED: Lactated Ringer's 1,000 ML IV ONE ×2 (11:19)
[2016-10-17] MEDS ORDERED: Succinylcholine Chloride 20 mg/ml Syr (5 ml) IV ONE (11:20)
--- NOTE | 2016-10-17 11:38 | CP.PCM.PN ---
<Samaria Little - Last Filed: 10/17/16 11:35> Subjective - Date & Time of Evaluation Date of Evaluation: 10/17/16 Time of Evaluation: 07:00 - Subjective Subjective: GENERAL SURGERY PROGRESS NOTE FOR DR. RIVERA Patient seen and examined at bedside in the ICU. He reports some abdominal pain but denies nausea or vomiting. MRCP showed choledocholithiasis. Patient going for ERCP today. Objective - Vital Signs/Intake and Output Vital Signs (last 24 hours): Temp Pulse Resp BP Pulse Ox 97.6 F 103 H 19 160/85 H 95 10/17/16 08:00 10/17/16 10:01 10/17/16 10:01 10/17/16 10:01 10/17/16 10:01 Intake and Output: 10/17/16 10/17/16 06:59 18:59 Intake Total 1400 625 Output Total 700 850 Balance 700 -225 - Medications Medications: Current Medications Hydromorphone HCl (Dilaudid) 0.5 mg IVP Q4H PRN PRN Reason: Pain, moderate (4-7) Metronidazole (Flagyl) 500 mg in 100 mls @ 100 mls/hr IVPB Q8 [facility] Last Admin: 10/17/16 06:25 Dose: 100 mls/hr Ciprofloxacin (Cipro 400mg/200ml Dsw) 400 mg in 200 mls @ 133 mls/hr IVPB Q12H [facility] Last Admin: 10/16/16 23:00 Dose: 133 mls/hr Sodium Chloride (Sodium Chloride 0.45%) 1,000 mls @ 125 mls/hr IV .Q8H [facility] Last Admin: 10/17/16 05:10 Dose: Not Given Insulin Human Regular (Novolin R) 0 unit SC Q6H [facility] PRN Reason: Protocol Last Admin: 10/17/16 06:00 Dose: Not Given Ondansetron HCl (Zofran Inj) 4 mg IVP Q6H PRN PRN Reason: Nausea/Vomiting Pantoprazole Sodium (Protonix Inj) 40 mg IVP DAILY [facility] Last Admin: 10/17/16 09:55 Dose: 40 mg - Labs Labs: 10/17/16 06:38 10/17/16 06:36 PT 12.9 SECONDS (9.7-12.2) H 10/17/16 06:38 INR 1.2 10/17/16 06:38 APTT 26 SECONDS (21-34) 10/17/16 06:38 - Constitutional Appears: Non-toxic, No Acute Distress - Eye Exam Eye Exam: EOMI - Respiratory Exam Respiratory Exam: NORMAL BREATHING PATTERN. absent: Respiratory Distress - Cardiovascular Exam Cardiovascular Exam: Tachycardia, +S1, +S2 - GI/Abdominal Exam GI & Abdominal Exam: Soft, Tenderness (mild tenderness RUQ). absent: Distended , Firm, Guarding, Rigid, Rebound - Neurological Exam Neurological Exam: Alert, Awake, Oriented x3 - Psychiatric Exam Psychiatric exam: Normal Affect, Normal Mood - Skin Skin Exam: Dry, Normal Color, Warm Assessment and Plan - Assessment and Plan (Free Text) Assessment: 51yo F with PMHx of DM, HTN, with acute cholecystitis and choledocholithiasis - Afebrile, mild tachycardia - WBC 13.0 (increased from 12.1) - T bili 4.7, trending up - LFTs and Alk phos elevated - MRCP: filling defect at distal CBD highly suspicious for choledocholithiasis; distended gallbladder w/ diffuse wall thickening & surrounding with pericholecystic fluid, likely contains sludge suggesting acute cholecystitis - Will FU ERCP findings - Will need eventual cholecystectomy - Discussed plan with Dr. Nicole Little PGY-3 <Casey Rivera - Last Filed: 10/18/16 19:37> Objective - Vital Signs/Intake and Output Vital Signs (last 24 hours): Temp Pulse Resp BP Pulse Ox 98.2 F 98 H 20 152/90 H 95 10/18/16 16:00 10/18/16 18:00 10/18/16 18:00 10/18/16 17:45 10/18/16 18:00 Intake and Output: 10/18/16 10/19/16 18:59 06:59 Intake Total 712.5 Output Total 1600 Balance -887.5 - Medications Medications: Current Medications Heparin Sodium (Porcine) (Heparin) 5,000 units SC Q8 [facility] Last Admin: 10/17/16 21:20 Dose: 5,000 units Hydromorphone HCl (Dilaudid) 0.5 mg IVP Q4H PRN PRN Reason: Pain, moderate (4-7) Metronidazole (Flagyl) 500 mg in 100 mls @ 100 mls/hr IVPB Q8 [facility] Last Admin: 10/18/16 15:56 Dose: Not Given Ciprofloxacin (Cipro 400mg/200ml Dsw) 400 mg in 200 mls @ 133 mls/hr IVPB Q12H [facility] Last Admin: 10/18/16 12:43 Dose: 200 mls Sodium Chloride (Sodium Chloride 0.45%) 1,000 mls @ 125 mls/hr IV .Q8H [facility] Last Admin: 10/18/16 19:18 Dose: Not Given Insulin Human Regular (Novolin R) 0 unit SC Q6H [facility] PRN Reason: Protocol Last Admin: 10/18/16 18:33 Dose: 1 unit Ondansetron HCl (Zofran Inj) 4 mg IVP Q4H PRN PRN Reason: Nausea/Vomiting Pantoprazole Sodium (Protonix Inj) 40 mg IVP DAILY [facility] Last Admin: 10/18/16 10:33 Dose: 40 mg - Labs Labs: 10/18/16 06:04 10/18/16 06:04 PT 12.9 SECONDS (9.7-12.2) H 10/17/16 06:38 INR 1.2 10/17/16 06:38 APTT 26 SECONDS (21-34) 10/17/16 06:38 Attending/Attestation - Attestation I have personally seen and examined this patient.: Yes I have fully participated in the care of the patient.: Yes I have reviewed all pertinent clinical information, including history, physical exam and plan: Yes Notes (Text): 10/18/16 19:36 Pt was seen and examined at bedside Agree with above note and assessment Pt with Cholelithiasis, CBD stone, Cholangitis S/P ERCP and stent OR for Lap /Robotic Cholecystectomy possible Open Consent C/W IV antibiotics Plan d.w pt and and ICU attending Risk and benefit explained in detail.
[2016-10-17] MEDS: Ciprofloxacin 400mg/200ml D5W 400 MG/200 ML BAG IVPB SCH ×2 (12:54→23:50)
--- NOTE | 2016-10-17 13:29 | CP.CCUPN ---
<Richard Mayer - Last Filed: 10/17/16 14:01> CCU Subjective - Physician Review Events Since Last Encounter (Free Text): CCM Chart reviewed . Pt examined. discussed with housestaff No new complaint in AM Alert, nad Neck- no jvd lungs- bilat bs Heart-rr abd- bs+, soft, sl. RUQ tenderness Ext- nontender Labs, EKG ,x-rays -reviewed A&P Cholecystitis Dilated CBD Transaminitis DM HTN cont meds/Ab Pt for ERCP today maintain optimal lytes bs control f/u cultures DVT prophylaxis GI f/u 10/17/16 13:53 10/17/16 14:01 CCU Objective - Vital Signs / Intake & Output Vital Signs (Last 4 hours): Vital Signs Pulse Resp BP Pulse Ox 10/17/16 13:08 89 22 119/80 96 10/17/16 13:00 87 24 97 10/17/16 12:52 92 H 25 H 137/84 96 10/17/16 12:38 87 23 130/74 96 10/17/16 12:23 96 H 27 H 141/78 95 10/17/16 12:14 101 H 94 L 10/17/16 11:29 104 H 19 155/99 H 99 10/17/16 10:01 103 H 19 160/85 H 95 10/17/16 10:00 88 17 97 Intake and Output (Last 8hrs): Intake & Output 10/16/16 10/17/16 10/17/16 22:59 06:59 14:59 Intake Total 615 925 625 Output Total 450 300 850 Balance 165 625 -225 Weight 198 lb 6.656 oz Intake: Intake, IV Amount 600 925 625 Right Antecubital 600 925 625 Oral 15 Output: Urine 400 300 850 Urine, Voided 400 300 850 Emesis 50 Other: Voiding Method Bedside Commode # Voids Urine, Voided 1 1 # Bowel Movements 0 - Medications Active Medications: Active Medications Generic Name Dose Route Start Last Admin Trade Name Freq PRN Reason Stop Dose Admin Heparin Sodium (Porcine) 5,000 units 10/17/16 14:00 Heparin SC Q8 NELIA Hydromorphone HCl 0.5 mg 10/16/16 16:39 Dilaudid IVP Q4H PRN Pain, moderate (4-7) Metronidazole 500 mg in 100 mls @ 100 mls/hr 10/16/16 22:00 10/17/16 06:25 Flagyl IVPB 100 mls/hr Q8 NELIA Administration Ciprofloxacin 400 mg in 200 mls @ 133 mls/hr 10/17/16 00:00 10/17/16 12:54 Cipro 400mg/200ml Dsw IVPB 133 mls/hr Q12H NELIA Administration Sodium Chloride 1,000 mls @ 125 mls/hr 10/16/16 18:00 10/17/16 05:10 Sodium Chloride 0.45% IV Not Given .Q8H NELIA Insulin Human Regular 0 unit 10/17/16 00:00 10/17/16 12:52 Novolin R SC 2 unit Q6H NELIA Administration Protocol Ondansetron HCl 4 mg 10/16/16 16:45 Zofran Inj IVP Q6H PRN Nausea/Vomiting Pantoprazole Sodium 40 mg 10/17/16 10:00 10/17/16 09:55 Protonix Inj IVP 40 mg DAILY NELIA Administration - Patient Studies Lab Studies: Lab Studies 10/17/16 10/17/16 10/17/16 Range/Units 12:50 10:13 08:45 WBC (4.8-10.8) K/uL RBC (3.80-5.20) Mil/uL Hgb (11.0-16.0) g/dL Hct (34.0-47.0) % MCV (81.0-99.0) fL MCH (27.0-31.0) pg MCHC (33.0-37.0) g/dL RDW (11.5-14.5) % Plt Count (130-400) K/uL MPV (7.2-11.7) fL Neut % (Auto) (50.0-75.0) % Lymph % (Auto) (20.0-40.0) % [place] % (Auto) (0.0-10.0) % Eos % (Auto) (0.0-4.0) % Baso % (Auto) (0.0-2.0) % Neut # (1.8-7.0) K/uL Lymph # (1.0-4.3) K/uL [place] # (0.0-0.8) K/uL Eos # (0.0-0.7) K/uL Baso # (0.0-0.2) K/uL PT (9.7-12.2) SECONDS INR APTT (21-34) SECONDS Puncture Site Rr pCO2 24 L (35-45) mm/Hg pO2 69 L (80-100) mm/Hg HCO3 15.6 L (21-28) mmol/L ABG pH 7.32 L (7.35-7.45) ABG Total CO2 13.1 L (22-28) mmol/L ABG O2 Saturation 97.4 (95-98) % ABG Base Excess -11.9 L (-2.0-3.0) mmol/L ABG Hemoglobin 12.6 (11.7-17.4) g/dL ABG Carboxyhemoglobin 2.2 H (0.5-1.5) % POC ABG HHb (Measured) 2.5 (0.0-5.0) % ABG Methemoglobin 0.8 (0.0-3.0) % Monster Test Pos A-a O2 Difference 51.0 mm/Hg Respiratory Index 0.7 Hgb O2 Saturation 94.5 L (95.0-98.0) % FiO2 21.0 % Sodium (132-148) mmol/L Potassium (3.6-5.2) mmol/L Chloride (98-107) mmol/L Carbon Dioxide (22-30) mmol/L Anion Gap (10-20) BUN (7-17) mg/dL Creatinine (0.7-1.2) MG/DL Est GFR ( Amer) Est GFR (Non-Af Amer) POC Glucose (mg/dL) 236 H (65-110) mg/dL Random Glucose (65-105) mg/dL Calcium (8.6-10.4) mg/dl Phosphorus (2.5-4.5) mg/dL Magnesium (1.6-2.3) mg/dL Total Bilirubin (0.2-1.3) mg/dL AST (14-36) U/L ALT (9-52) U/L Alkaline Phosphatase (38-126) U/L Total Protein (6.3-8.3) g/dL Albumin (3.5-5.0) g/dL Globulin (2.2-3.9) gm/dL Albumin/Globulin Ratio (1.0-2.1) Urine HCG, Qual Negative (NEGATIVE) 10/17/16 10/17/16 10/17/16 Range/Units 06:38 06:38 06:36 WBC 13.9 H (4.8-10.8) K/uL RBC 4.51 (3.80-5.20) Mil/uL Hgb 13.2 (11.0-16.0) g/dL Hct 40.0 (34.0-47.0) % MCV 88.6 (81.0-99.0) fL MCH 29.3 (27.0-31.0) pg MCHC 33.1 (33.0-37.0) g/dL RDW 13.8 (11.5-14.5) % Plt Count 214 (130-400) K/uL MPV 9.3 (7.2-11.7) fL Neut % (Auto) 60.5 (50.0-75.0) % Lymph % (Auto) 29.8 (20.0-40.0) % [place] % (Auto) 9.0 (0.0-10.0) % Eos % (Auto) 0.2 (0.0-4.0) % Baso % (Auto) 0.5 (0.0-2.0) % Neut # 8.4 H (1.8-7.0) K/uL Lymph # 4.1 (1.0-4.3) K/uL [place] # 1.3 H (0.0-0.8) K/uL Eos # 0.0 (0.0-0.7) K/uL Baso # 0.1 (0.0-0.2) K/uL PT 12.9 H (9.7-12.2) SECONDS INR 1.2 APTT 26 (21-34) SECONDS Puncture Site pCO2 (35-45) mm/Hg pO2 (80-100) mm/Hg HCO3 (21-28) mmol/L ABG pH (7.35-7.45) ABG Total CO2 (22-28) mmol/L ABG O2 Saturation (95-98) % ABG Base Excess (-2.0-3.0) mmol/L ABG Hemoglobin (11.7-17.4) g/dL ABG Carboxyhemoglobin (0.5-1.5) % POC ABG HHb (Measured) (0.0-5.0) % ABG Methemoglobin (0.0-3.0) % Monster Test A-a O2 Difference mm/Hg Respiratory Index Hgb O2 Saturation (95.0-98.0) % FiO2 % Sodium 137 (132-148) mmol/L Potassium 4.1 (3.6-5.2) mmol/L Chloride 105 (98-107) mmol/L Carbon Dioxide 12 L (22-30) mmol/L Anion Gap 24 H (10-20) BUN 7 (7-17) mg/dL Creatinine 0.4 L (0.7-1.2) MG/DL Est GFR ( Amer) > 60 Est GFR (Non-Af Amer) > 60 POC Glucose (mg/dL) (65-110) mg/dL Random Glucose 213 H (65-105) mg/dL Calcium 9.2 (8.6-10.4) mg/dl Phosphorus 2.5 (2.5-4.5) mg/dL Magnesium 1.9 (1.6-2.3) mg/dL Total Bilirubin 4.7 H (0.2-1.3) mg/dL AST 765 H (14-36) U/L ALT 650 H D (9-52) U/L Alkaline Phosphatase 304 H (38-126) U/L Total Protein 7.4 (6.3-8.3) g/dL Albumin 3.5 (3.5-5.0) g/dL Globulin 3.8 (2.2-3.9) gm/dL Albumin/Globulin Ratio 0.9 L (1.0-2.1) Urine HCG, Qual (NEGATIVE) 10/17/16 10/17/16 10/16/16 Range/Units 06:31 00:05 18:10 WBC (4.8-10.8) K/uL RBC (3.80-5.20) Mil/uL Hgb (11.0-16.0) g/dL Hct (34.0-47.0) % MCV (81.0-99.0) fL MCH (27.0-31.0) pg MCHC (33.0-37.0) g/dL RDW (11.5-14.5) % Plt Count (130-400) K/uL MPV (7.2-11.7) fL Neut % (Auto) (50.0-75.0) % Lymph % (Auto) (20.0-40.0) % [place] % (Auto) (0.0-10.0) % Eos % (Auto) (0.0-4.0) % Baso % (Auto) (0.0-2.0) % Neut # (1.8-7.0) K/uL Lymph # (1.0-4.3) K/uL [place] # (0.0-0.8) K/uL Eos # (0.0-0.7) K/uL Baso # (0.0-0.2) K/uL PT (9.7-12.2) SECONDS INR APTT (21-34) SECONDS Puncture Site pCO2 (35-45) mm/Hg pO2 (80-100) mm/Hg HCO3 (21-28) mmol/L ABG pH (7.35-7.45) ABG Total CO2 (22-28) mmol/L ABG O2 Saturation (95-98) % ABG Base Excess (-2.0-3.0) mmol/L ABG Hemoglobin (11.7-17.4) g/dL ABG Carboxyhemoglobin (0.5-1.5) % POC ABG HHb (Measured) (0.0-5.0) % ABG Methemoglobin (0.0-3.0) % Monster Test A-a O2 Difference mm/Hg Respiratory Index Hgb O2 Saturation (95.0-98.0) % FiO2 % Sodium (132-148) mmol/L Potassium (3.6-5.2) mmol/L Chloride (98-107) mmol/L Carbon Dioxide (22-30) mmol/L Anion Gap (10-20) BUN (7-17) mg/dL Creatinine (0.7-1.2) MG/DL Est GFR ( Amer) Est GFR (Non-Af Amer) POC Glucose (mg/dL) 199 H 234 H 235 H (65-110) mg/dL Random Glucose (65-105) mg/dL Calcium (8.6-10.4) mg/dl Phosphorus (2.5-4.5) mg/dL Magnesium (1.6-2.3) mg/dL Total Bilirubin (0.2-1.3) mg/dL AST (14-36) U/L ALT (9-52) U/L Alkaline Phosphatase (38-126) U/L Total Protein (6.3-8.3) g/dL Albumin (3.5-5.0) g/dL Globulin (2.2-3.9) gm/dL Albumin/Globulin Ratio (1.0-2.1) Urine HCG, Qual (NEGATIVE) Laboratory Results - last 24 hr 10/16/16 10/17/16 10/17/16 18:10 00:05 06:31 WBC RBC Hgb Hct MCV MCH MCHC RDW Plt Count MPV Neut % (Auto) Lymph % (Auto) [place] % (Auto) Eos % (Auto) Baso % (Auto) Neut # Lymph # [place] # Eos # Baso # PT INR APTT Puncture Site pCO2 pO2 HCO3 ABG pH ABG Total CO2 ABG O2 Saturation ABG Base Excess ABG Hemoglobin ABG Carboxyhemoglobin POC ABG HHb (Measured) ABG Methemoglobin Monster Test A-a O2 Difference Respiratory Index Hgb O2 Saturation FiO2 Sodium Potassium Chloride Carbon Dioxide Anion Gap BUN Creatinine Est GFR ( Amer) Est GFR (Non-Af Amer) POC Glucose (mg/dL) 235 H 234 H 199 H Random Glucose Calcium Phosphorus Magnesium Total Bilirubin AST ALT Alkaline Phosphatase Total Protein Albumin Globulin Albumin/Globulin Ratio Urine HCG, Qual 10/17/16 10/17/16 10/17/16 06:36 06:38 06:38 WBC 13.9 H RBC 4.51 Hgb 13.2 Hct 40.0 MCV 88.6 MCH 29.3 MCHC 33.1 RDW 13.8 Plt Count 214 MPV 9.3 Neut % (Auto) 60.5 Lymph % (Auto) 29.8 [place] % (Auto) 9.0 Eos % (Auto) 0.2 Baso % (Auto) 0.5 Neut # 8.4 H Lymph # 4.1 [place] # 1.3 H Eos # 0.0 Baso # 0.1 PT 12.9 H INR 1.2 APTT 26 Puncture Site pCO2 pO2 HCO3 ABG pH ABG Total CO2 ABG O2 Saturation ABG Base Excess ABG Hemoglobin ABG Carboxyhemoglobin POC ABG HHb (Measured) ABG Methemoglobin Monster Test A-a O2 Difference Respiratory Index Hgb O2 Saturation FiO2 Sodium 137 Potassium 4.1 Chloride 105 Carbon Dioxide 12 L Anion Gap 24 H BUN 7 Creatinine 0.4 L Est GFR ( Amer) > 60 Est GFR (Non-Af Amer) > 60 POC Glucose (mg/dL) Random Glucose 213 H Calcium 9.2 Phosphorus 2.5 Magnesium 1.9 Total Bilirubin 4.7 H AST 765 H ALT 650 H D Alkaline Phosphatase 304 H Total Protein 7.4 Albumin 3.5 Globulin 3.8 Albumin/Globulin Ratio 0.9 L Urine HCG, Qual 10/17/16 10/17/16 10/17/16 08:45 10:13 12:50 WBC RBC Hgb Hct MCV MCH MCHC RDW Plt Count MPV Neut % (Auto) Lymph % (Auto) [place] % (Auto) Eos % (Auto) Baso % (Auto) Neut # Lymph # [place] # Eos # Baso # PT INR APTT Puncture Site Rr pCO2 24 L pO2 69 L HCO3 15.6 L ABG pH 7.32 L ABG Total CO2 13.1 L ABG O2 Saturation 97.4 ABG Base Excess -11.9 L ABG Hemoglobin 12.6 ABG Carboxyhemoglobin 2.2 H POC ABG HHb (Measured) 2.5 ABG Methemoglobin 0.8 Monster Test Pos A-a O2 Difference 51.0 Respiratory Index 0.7 Hgb O2 Saturation 94.5 L FiO2 21.0 Sodium Potassium Chloride Carbon Dioxide Anion Gap BUN Creatinine Est GFR ( Amer) Est GFR (Non-Af Amer) POC Glucose (mg/dL) 236 H Random Glucose Calcium Phosphorus Magnesium Total Bilirubin AST ALT Alkaline Phosphatase Total Protein Albumin Globulin Albumin/Globulin Ratio Urine HCG, Qual Negative EKG/Cardiology Studies: Cardiology / EKG Studies 10/17/16 09:28 EKG [ELECTROCARDIOGRAM] Stat Comment: Mode Of Transportation: PORTABLE Reason For Exam: preop Critical Care Progress Note - Nutrition Nutrition: Nutrition Category Date Time Status NPO Diet [DIET] Diets 10/16/16 Breakfast Active <Tom Maldonado - Last Filed: 10/17/16 15:11> CCU Subjective - Physician Review Subjective (Free Text): Patient seen and examined at bedside this morning. Patient's abdominal pain is improved today. Return of appetite. Able to ambulate in her room. She had no other complaints, she denies chest pain, shortness of breath, fever, chills, vomiting, diarrhea. 10/17/16 14:44 10/17/16 15:04 CCU Objective - Vital Signs / Intake & Output Vital Signs (Last 4 hours): Vital Signs Pulse Resp BP Pulse Ox 10/17/16 13:08 89 22 119/80 96 10/17/16 13:00 87 24 97 10/17/16 12:52 92 H 25 H 137/84 96 10/17/16 12:38 87 23 130/74 96 10/17/16 12:23 96 H 27 H 141/78 95 10/17/16 12:14 101 H 94 L 10/17/16 11:29 104 H 19 155/99 H 99 10/17/16 10:01 103 H 19 160/85 H 95 10/17/16 10:00 88 17 97 10/17/16 09:49 153/91 H 10/17/16 09:48 94 H 18 96 Intake and Output (Last 8hrs): Intake & Output 10/16/16 10/17/16 10/17/16 22:59 06:59 14:59 Intake Total 615 925 625 Output Total 450 300 850 Balance 165 625 -225 Weight 198 lb 6.656 oz Intake: Intake, IV Amount 600 925 625 Right Antecubital 600 925 625 Oral 15 Output: Urine 400 300 850 Urine, Voided 400 300 850 Emesis 50 Other: Voiding Method Bedside Commode # Voids Urine, Voided 1 1 # Bowel Movements 0 - Physical Exam Head: Positive for: Normocephalic Extroacular Muscles: Positive for: EOMI Respiratory/Chest: Positive for: Clear to Auscultation, Good Air Exchange. Negative for: Wheezes Cardiovascular: Positive for: Regular Rate and Rhythm, Normal S1, S2. Negative for: Murmurs Abdomen: Positive for: Tenderness, Normal Bowel Sounds, Other ((+) murphys sign) . Negative for: Distention Neurological: Positive for: CN II-XII Intact, Speech Normal Skin: Positive for: Warm, Dry, Rashes, Normal Color Psychiatric: Positive for: Oriented x 3 - Medications Active Medications: Active Medications Generic Name Dose Route Start Last Admin Trade Name Freq PRN Reason Stop Dose Admin Heparin Sodium (Porcine) 5,000 units 10/17/16 14:00 Heparin SC Q8 NELIA Hydromorphone HCl 0.5 mg 10/16/16 16:39 Dilaudid IVP Q4H PRN Pain, moderate (4-7) Metronidazole 500 mg in 100 mls @ 100 mls/hr 10/16/16 22:00 10/17/16 06:25 Flagyl IVPB 100 mls/hr Q8 NELIA Administration Ciprofloxacin 400 mg in 200 mls @ 133 mls/hr 10/17/16 00:00 10/17/16 12:54 Cipro 400mg/200ml Dsw IVPB 133 mls/hr Q12H NELIA Administration Sodium Chloride 1,000 mls @ 125 mls/hr 10/16/16 18:00 10/17/16 05:10 Sodium Chloride 0.45% IV Not Given .Q8H NELIA Insulin Human Regular 0 unit 10/17/16 00:00 10/17/16 12:52 Novolin R SC 2 unit Q6H NELIA Administration Protocol Ondansetron HCl 4 mg 10/16/16 16:45 Zofran Inj IVP Q6H PRN Nausea/Vomiting Pantoprazole Sodium 40 mg 10/17/16 10:00 10/17/16 09:55 Protonix Inj IVP 40 mg DAILY NELIA Administration - Patient Studies Lab Studies: Lab Studies 10/17/16 10/17/16 10/17/16 Range/Units 12:50 10:13 08:45 WBC (4.8-10.8) K/uL RBC (3.80-5.20) Mil/uL Hgb (11.0-16.0) g/dL Hct (34.0-47.0) % MCV (81.0-99.0) fL MCH (27.0-31.0) pg MCHC (33.0-37.0) g/dL RDW (11.5-14.5) % Plt Count (130-400) K/uL MPV (7.2-11.7) fL Neut % (Auto) (50.0-75.0) % Lymph % (Auto) (20.0-40.0) % [place] % (Auto) (0.0-10.0) % Eos % (Auto) (0.0-4.0) % Baso % (Auto) (0.0-2.0) % Neut # (1.8-7.0) K/uL Lymph # (1.0-4.3) K/uL [place] # (0.0-0.8) K/uL Eos # (0.0-0.7) K/uL Baso # (0.0-0.2) K/uL PT (9.7-12.2) SECONDS INR APTT (21-34) SECONDS Puncture Site Rr pCO2 24 L (35-45) mm/Hg pO2 69 L (80-100) mm/Hg HCO3 15.6 L (21-28) mmol/L ABG pH 7.32 L (7.35-7.45) ABG Total CO2 13.1 L (22-28) mmol/L ABG O2 Saturation 97.4 (95-98) % ABG Base Excess -11.9 L (-2.0-3.0) mmol/L ABG Hemoglobin 12.6 (11.7-17.4) g/dL ABG Carboxyhemoglobin 2.2 H (0.5-1.5) % POC ABG HHb (Measured) 2.5 (0.0-5.0) % ABG Methemoglobin 0.8 (0.0-3.0) % Monster Test Pos A-a O2 Difference 51.0 mm/Hg Respiratory Index 0.7 Hgb O2 Saturation 94.5 L (95.0-98.0) % FiO2 21.0 % Sodium (132-148) mmol/L Potassium (3.6-5.2) mmol/L Chloride (98-107) mmol/L Carbon Dioxide (22-30) mmol/L Anion Gap (10-20) BUN (7-17) mg/dL Creatinine (0.7-1.2) MG/DL Est GFR ( Amer) Est GFR (Non-Af Amer) POC Glucose (mg/dL) 236 H (65-110) mg/dL Random Glucose (65-105) mg/dL Calcium (8.6-10.4) mg/dl Phosphorus (2.5-4.5) mg/dL Magnesium (1.6-2.3) mg/dL Total Bilirubin (0.2-1.3) mg/dL AST (14-36) U/L ALT (9-52) U/L Alkaline Phosphatase (38-126) U/L Total Protein (6.3-8.3) g/dL Albumin (3.5-5.0) g/dL Globulin (2.2-3.9) gm/dL Albumin/Globulin Ratio (1.0-2.1) Urine HCG, Qual Negative (NEGATIVE) 10/17/16 10/17/16 10/17/16 Range/Units 06:38 06:38 06:36 WBC 13.9 H (4.8-10.8) K/uL RBC 4.51 (3.80-5.20) Mil/uL Hgb 13.2 (11.0-16.0) g/dL Hct 40.0 (34.0-47.0) % MCV 88.6 (81.0-99.0) fL MCH 29.3 (27.0-31.0) pg MCHC 33.1 (33.0-37.0) g/dL RDW 13.8 (11.5-14.5) % Plt Count 214 (130-400) K/uL MPV 9.3 (7.2-11.7) fL Neut % (Auto) 60.5 (50.0-75.0) % Lymph % (Auto) 29.8 (20.0-40.0) % [place] % (Auto) 9.0 (0.0-10.0) % Eos % (Auto) 0.2 (0.0-4.0) % Baso % (Auto) 0.5 (0.0-2.0) % Neut # 8.4 H (1.8-7.0) K/uL Lymph # 4.1 (1.0-4.3) K/uL [place] # 1.3 H (0.0-0.8) K/uL Eos # 0.0 (0.0-0.7) K/uL Baso # 0.1 (0.0-0.2) K/uL PT 12.9 H (9.7-12.2) SECONDS INR 1.2 APTT 26 (21-34) SECONDS Puncture Site pCO2 (35-45) mm/Hg pO2 (80-100) mm/Hg HCO3 (21-28) mmol/L ABG pH (7.35-7.45) ABG Total CO2 (22-28) mmol/L ABG O2 Saturation (95-98) % ABG Base Excess (-2.0-3.0) mmol/L ABG Hemoglobin (11.7-17.4) g/dL ABG Carboxyhemoglobin (0.5-1.5) % POC ABG HHb (Measured) (0.0-5.0) % ABG Methemoglobin (0.0-3.0) % Monster Test A-a O2 Difference mm/Hg Respiratory Index Hgb O2 Saturation (95.0-98.0) % FiO2 % Sodium 137 (132-148) mmol/L Potassium 4.1 (3.6-5.2) mmol/L Chloride 105 (98-107) mmol/L Carbon Dioxide 12 L (22-30) mmol/L Anion Gap 24 H (10-20) BUN 7 (7-17) mg/dL Creatinine 0.4 L (0.7-1.2) MG/DL Est GFR ( Amer) > 60 Est GFR (Non-Af Amer) > 60 POC Glucose (mg/dL) (65-110) mg/dL Random Glucose 213 H (65-105) mg/dL Calcium 9.2 (8.6-10.4) mg/dl Phosphorus 2.5 (2.5-4.5) mg/dL Magnesium 1.9 (1.6-2.3) mg/dL Total Bilirubin 4.7 H (0.2-1.3) mg/dL AST 765 H (14-36) U/L ALT 650 H D (9-52) U/L Alkaline Phosphatase 304 H (38-126) U/L Total Protein 7.4 (6.3-8.3) g/dL Albumin 3.5 (3.5-5.0) g/dL Globulin 3.8 (2.2-3.9) gm/dL Albumin/Globulin Ratio 0.9 L (1.0-2.1) Urine HCG, Qual (NEGATIVE) 10/17/16 10/17/16 10/16/16 Range/Units 06:31 00:05 18:10 WBC (4.8-10.8) K/uL RBC (3.80-5.20) Mil/uL Hgb (11.0-16.0) g/dL Hct (34.0-47.0) % MCV (81.0-99.0) fL MCH (27.0-31.0) pg MCHC (33.0-37.0) g/dL RDW (11.5-14.5) % Plt Count (130-400) K/uL MPV (7.2-11.7) fL Neut % (Auto) (50.0-75.0) % Lymph % (Auto) (20.0-40.0) % [place] % (Auto) (0.0-10.0) % Eos % (Auto) (0.0-4.0) % Baso % (Auto) (0.0-2.0) % Neut # (1.8-7.0) K/uL Lymph # (1.0-4.3) K/uL [place] # (0.0-0.8) K/uL Eos # (0.0-0.7) K/uL Baso # (0.0-0.2) K/uL PT (9.7-12.2) SECONDS INR APTT (21-34) SECONDS Puncture Site pCO2 (35-45) mm/Hg pO2 (80-100) mm/Hg HCO3 (21-28) mmol/L ABG pH (7.35-7.45) ABG Total CO2 (22-28) mmol/L ABG O2 Saturation (95-98) % ABG Base Excess (-2.0-3.0) mmol/L ABG Hemoglobin (11.7-17.4) g/dL ABG Carboxyhemoglobin (0.5-1.5) % POC ABG HHb (Measured) (0.0-5.0) % ABG Methemoglobin (0.0-3.0) % Monster Test A-a O2 Difference mm/Hg Respiratory Index Hgb O2 Saturation (95.0-98.0) % FiO2 % Sodium (132-148) mmol/L Potassium (3.6-5.2) mmol/L Chloride (98-107) mmol/L Carbon Dioxide (22-30) mmol/L Anion Gap (10-20) BUN (7-17) mg/dL Creatinine (0.7-1.2) MG/DL Est GFR ( Amer) Est GFR (Non-Af Amer) POC Glucose (mg/dL) 199 H 234 H 235 H (65-110) mg/dL Random Glucose (65-105) mg/dL Calcium (8.6-10.4) mg/dl Phosphorus (2.5-4.5) mg/dL Magnesium (1.6-2.3) mg/dL Total Bilirubin (0.2-1.3) mg/dL AST (14-36) U/L ALT (9-52) U/L Alkaline Phosphatase (38-126) U/L Total Protein (6.3-8.3) g/dL Albumin (3.5-5.0) g/dL Globulin (2.2-3.9) gm/dL Albumin/Globulin Ratio (1.0-2.1) Urine HCG, Qual (NEGATIVE) Laboratory Results - last 24 hr 10/16/16 10/17/16 10/17/16 18:10 00:05 06:31 WBC RBC Hgb Hct MCV MCH MCHC RDW Plt Count MPV Neut % (Auto) Lymph % (Auto) [place] % (Auto) Eos % (Auto) Baso % (Auto) Neut # Lymph # [place] # Eos # Baso # PT INR APTT Puncture Site pCO2 pO2 HCO3 ABG pH ABG Total CO2 ABG O2 Saturation ABG Base Excess ABG Hemoglobin ABG Carboxyhemoglobin POC ABG HHb (Measured) ABG Methemoglobin Monster Test A-a O2 Difference Respiratory Index Hgb O2 Saturation FiO2 Sodium Potassium Chloride Carbon Dioxide Anion Gap BUN Creatinine Est GFR ( Amer) Est GFR (Non-Af Amer) POC Glucose (mg/dL) 235 H 234 H 199 H Random Glucose Calcium Phosphorus Magnesium Total Bilirubin AST ALT Alkaline Phosphatase Total Protein Albumin Globulin Albumin/Globulin Ratio Urine HCG, Qual 10/17/16 10/17/16 10/17/16 06:36 06:38 06:38 WBC 13.9 H RBC 4.51 Hgb 13.2 Hct 40.0 MCV 88.6 MCH 29.3 MCHC 33.1 RDW 13.8 Plt Count 214 MPV 9.3 Neut % (Auto) 60.5 Lymph % (Auto) 29.8 [place] % (Auto) 9.0 Eos % (Auto) 0.2 Baso % (Auto) 0.5 Neut # 8.4 H Lymph # 4.1 [place] # 1.3 H Eos # 0.0 Baso # 0.1 PT 12.9 H INR 1.2 APTT 26 Puncture Site pCO2 pO2 HCO3 ABG pH ABG Total CO2 ABG O2 Saturation ABG Base Excess ABG Hemoglobin ABG Carboxyhemoglobin POC ABG HHb (Measured) ABG Methemoglobin Monster Test A-a O2 Difference Respiratory Index Hgb O2 Saturation FiO2 Sodium 137 Potassium 4.1 Chloride 105 Carbon Dioxide 12 L Anion Gap 24 H BUN 7 Creatinine 0.4 L Est GFR ( Amer) > 60 Est GFR (Non-Af Amer) > 60 POC Glucose (mg/dL) Random Glucose 213 H Calcium 9.2 Phosphorus 2.5 Magnesium 1.9 Total Bilirubin 4.7 H AST 765 H ALT 650 H D Alkaline Phosphatase 304 H Total Protein 7.4 Albumin 3.5 Globulin 3.8 Albumin/Globulin Ratio 0.9 L Urine HCG, Qual 10/17/16 10/17/16 10/17/16 08:45 10:13 12:50 WBC RBC Hgb Hct MCV MCH MCHC RDW Plt Count MPV Neut % (Auto) Lymph % (Auto) [place] % (Auto) Eos % (Auto) Baso % (Auto) Neut # Lymph # [place] # Eos # Baso # PT INR APTT Puncture Site Rr pCO2 24 L pO2 69 L HCO3 15.6 L ABG pH 7.32 L ABG Total CO2 13.1 L ABG O2 Saturation 97.4 ABG Base Excess -11.9 L ABG Hemoglobin 12.6 ABG Carboxyhemoglobin 2.2 H POC ABG HHb (Measured) 2.5 ABG Methemoglobin 0.8 Monster Test Pos A-a O2 Difference 51.0 Respiratory Index 0.7 Hgb O2 Saturation 94.5 L FiO2 21.0 Sodium Potassium Chloride Carbon Dioxide Anion Gap BUN Creatinine Est GFR ( Amer) Est GFR (Non-Af Amer) POC Glucose (mg/dL) 236 H Random Glucose Calcium Phosphorus Magnesium Total Bilirubin AST ALT Alkaline Phosphatase Total Protein Albumin Globulin Albumin/Globulin Ratio Urine HCG, Qual Negative EKG/Cardiology Studies: Cardiology / EKG Studies 10/17/16 09:28 EKG [ELECTROCARDIOGRAM] Stat Comment: Mode Of Transportation: PORTABLE Reason For Exam: preop Fingerstick Blood Sugar Results: 236 Review of Systems - Constitutional Constitutional: absent: Fever, Chills, Sweats - Cardiovascular Cardiovascular: absent: Chest Pain - Respiratory Respiratory: absent: Cough, Dyspnea, Wheezing - Gastrointestinal Gastrointestinal: Abdominal Pain. absent: Diarrhea - Genitourinary Genitourinary: absent: Change in Urinary Stream - Integumentary Integumentary: absent: Bleeding Lesions Critical Care Progress Note - Nutrition Nutrition: Nutrition Category Date Time Status NPO Diet [DIET] Diets 10/16/16 Breakfast Active Assessment/Plan - Assessment and Plan (Free Text) Assessment: Patient is a 51-year-old female with PMHx of diabetes, HTN, HLD, presented to ER with the sudden onset of abdominal pain, started night of 10/15 with associated n/v. Mild elevation of anion gap noted. Sonogram showed evidence of cholecystitis and CBD dilation. Patient underwent MRCP with ERCP to follow. Neuro: no issues identified Pulmonary: no issues identified - incentive spirometry Cardiovascular: Hx of HTN, HLD Endocrine: Hx of DM - insulin (novolin) 0 unit sc q6 GI: acute cholecystitis and choledocholithiasis, transaminitis - GI consulted, Dr Coffman - MRCP showing intra/extra hepatic biliary dilation with distal CBD stone consistent with choledocholithiasis - Patient to undergo ERCP today with Dr. Rodriguez given presence of choledocholithiasis, F/U - Continue to monitor LFTs - Patient will require eventual cholecystectomy, follow up surgical recommendations regarding timing - Gen Surg consulted, Dr Rivera - NPO Heme: no issues identified - Hgb wnl - platelets wnl Renal: no issues identified - BUN/Cr: 7/0.4 MSK: no issues identified - dilaudid 0.5mg iv q4 prn for moderate-severe pain Infectious Disease: elevated wbc - Afebrile, mild tachycardia - WBC 13.0 (increased from 12.1) - Cipro 400mg iv q12 - metronidazole 500mg iv q8
--- NOTE | 2016-10-17 16:18 | CP.PCM.PN ---
Subjective - Date & Time of Evaluation Date of Evaluation: 10/17/16 Time of Evaluation: 14:40 - Subjective Subjective: clinically same Objective - Vital Signs/Intake and Output Vital Signs (last 24 hours): Temp Pulse Resp BP Pulse Ox 97.6 F 95 H 26 H 148/88 94 L 10/17/16 12:00 10/17/16 15:20 10/17/16 15:20 10/17/16 15:20 10/17/16 15:20 Intake and Output: 10/17/16 10/17/16 06:59 18:59 Intake Total 1400 1150 Output Total 700 1350 Balance 700 -200 - Medications Medications: Current Medications Heparin Sodium (Porcine) (Heparin) 5,000 units SC Q8 [facility] Last Admin: 10/17/16 15:11 Dose: 5,000 units Hydromorphone HCl (Dilaudid) 0.5 mg IVP Q4H PRN PRN Reason: Pain, moderate (4-7) Metronidazole (Flagyl) 500 mg in 100 mls @ 100 mls/hr IVPB Q8 [facility] Last Admin: 10/17/16 15:10 Dose: 100 mls/hr Ciprofloxacin (Cipro 400mg/200ml Dsw) 400 mg in 200 mls @ 133 mls/hr IVPB Q12H [facility] Last Admin: 10/17/16 12:54 Dose: 133 mls/hr Sodium Chloride (Sodium Chloride 0.45%) 1,000 mls @ 125 mls/hr IV .Q8H [facility] Last Admin: 10/17/16 15:31 Dose: Not Given Insulin Human Regular (Novolin R) 0 unit SC Q6H [facility] PRN Reason: Protocol Last Admin: 10/17/16 12:52 Dose: 2 unit Ondansetron HCl (Zofran Inj) 4 mg IVP Q6H PRN PRN Reason: Nausea/Vomiting Pantoprazole Sodium (Protonix Inj) 40 mg IVP DAILY [facility] Last Admin: 10/17/16 09:55 Dose: 40 mg - Labs Labs: 10/17/16 06:38 10/17/16 06:36 PT 12.9 SECONDS (9.7-12.2) H 10/17/16 06:38 INR 1.2 10/17/16 06:38 APTT 26 SECONDS (21-34) 10/17/16 06:38 - Constitutional Appears: Well - Head Exam Head Exam: ATRAUMATIC, NORMAL INSPECTION, NORMOCEPHALIC - Eye Exam Eye Exam: EOMI, Normal appearance, PERRL Pupil Exam: NORMAL ACCOMODATION, PERRL - ENT Exam ENT Exam: Mucous Membranes Moist, Normal Exam - Neck Exam Neck Exam: Full ROM, Normal Inspection. absent: Lymphadenopathy - Respiratory Exam Respiratory Exam: Decreased Breath Sounds - Cardiovascular Exam Cardiovascular Exam: REGULAR RHYTHM, +S1, +S2 - GI/Abdominal Exam GI & Abdominal Exam: Soft, Diminished Bowel Sounds - Rectal Exam Rectal Exam: Deferred
[2016-10-17] MEDS ORDERED: Acetaminophen IV 1,000 MG in Premixed IV 1 EA IV ONE (18:37)
[2016-10-18] MEDS: (Novolin R) Insulin Human Regular 100 units/ml vial SC SCH ×4 (00:30→18:33)
[2016-10-18] MEDS: Sodium Chloride 0.45% 1,000 ML IV SCH ×3 (02:30→19:18)
[2016-10-18] MEDS: metroNIDAZOLE IV 500 mg/100 ml 500 MG/100 ML BAG IVPB SCH ×3 (05:30→21:12)
[2016-10-18 06:15] LABS: BASO % 0.4 % (0.0-2.0); EOS % 0.3 % (0.0-4.0); HEMATOCRIT 37.7 % (34.0-47.0); LYMPH # 2.6 K/uL (1.0-4.3); MEAN CELL VOLUME 86.8 fL (81.0-99.0); MEAN CORPUSCULAR HEMOGLOBIN 29.1 pg (27.0-31.0); MEAN CORPUSCULAR HGB CONC 33.5 g/dL (33.0-37.0); MEAN PLATELET VOLUME 9.5 fL (7.2-11.7); MONO # 0.8 K/uL (0.0-0.8); MONO % 9.5 % (0.0-10.0); NRBC % 0.1 % (0.0-2.0); RED CELL DISTRIBUTION WIDTH 13.8 % (11.5-14.5); WHITE BLOOD COUNT 8.5 K/uL (4.8-10.8)
[2016-10-18 06:33] LABS: ALB/GLOB RATIO 1.1 (1.0-2.1); ALKALINE PHOSPHATASE 325 U/L (38-126); ALT/SGPT 740 U/L (9-52); AST/SGOT 631 U/L (14-36); BILIRUBIN,TOTAL 4.6 mg/dL (0.2-1.3); BLOOD UREA NITROGEN 8 mg/dL (7-17); CALCIUM 9.3 mg/dl (8.6-10.4); CARBON DIOXIDE 12 mmol/L (22-30); CHLORIDE 104 mmol/L (98-107); GFR AFRICAN-AMERICAN > 60; GLUCOSE,RANDOM 224 mg/dL (65-105); MAGNESIUM 1.9 mg/dL (1.6-2.3); PHOSPHOROUS 1.9 mg/dL (2.5-4.5); POTASSIUM 3.4 mmol/L (3.6-5.2); SODIUM 135 mmol/L (132-148); TOTAL PROTEIN 6.5 g/dL (6.3-8.3)
[2016-10-18] MEDS ORDERED: Potassium Phosphate 15 MMOLE in Sodium Chloride 0.9% 250 ML IVPB ONE (09:36)
--- NOTE | 2016-10-18 09:37 | RAD ---
PROCEDURE: Intraoperative fluoroscopy HISTORY: CHOLANGITIS COMPARISON: None available TECHNIQUE: Intraoperative fluoroscopy was provided for ERCP and biliary stent insertion. Total time of fluoroscopy was 107.2 seconds. FINDINGS: Multiple fluoroscopic spot films are submitted demonstrating sequential images from endoscopic cholangiography and biliary stent insertion. Films are on file for review. IMPRESSION: Fluoroscopy provided.
[2016-10-18] MEDS ORDERED: Potassium Chloride 20 mEq ER Tab PO SCH (10:00)
--- NOTE | 2016-10-18 10:11 | RAD ---
HISTORY: chest pain COMPARISON: No prior. FINDINGS: LUNGS: No active pulmonary disease. PLEURA: No significant pleural effusion identified, no pneumothorax apparent. CARDIOVASCULAR: Normal. OSSEOUS STRUCTURES: No significant abnormalities. VISUALIZED UPPER ABDOMEN: Normal. OTHER FINDINGS: None. IMPRESSION: No active disease.
--- NOTE | 2016-10-18 11:57 | CP.CCUPN ---
<Tom Maldonado R - Last Filed: 10/18/16 12:41> CCU Subjective - Physician Review Subjective (Free Text): Patient seen and examined in chair this morning. Patient complained of chills yesterday evening. She had no other complaints, she denies chest pain, shortness of breath, fever, chills, vomiting, diarrhea. 10/18/16 11:53 CCU Objective - Vital Signs / Intake & Output Vital Signs (Last 4 hours): Vital Signs Temp Pulse Resp BP Pulse Ox 10/18/16 11:08 93 H 21 175/101 H 95 10/18/16 11:00 88 26 H 96 10/18/16 10:08 83 23 177/82 H 95 10/18/16 10:00 89 28 H 96 10/18/16 09:08 87 24 173/98 H 95 10/18/16 09:00 90 22 95 10/18/16 08:00 98.3 F 101 H 18 95 Intake and Output (Last 8hrs): Intake & Output 10/17/16 10/18/16 10/18/16 22:59 06:59 14:59 Intake Total 1000 1050 542.5 Output Total 900 900 0 Balance 100 150 542.5 Intake: Intake, IV Amount 1000 1050 542.5 Left Forearm 292.5 Right Antecubital 1000 1050 250 Output: Urine 900 900 0 Urine, Voided 900 900 0 Other: # Voids Urine, Voided 1 1 - Physical Exam Head: Positive for: Normocephalic Extroacular Muscles: Positive for: EOMI Respiratory/Chest: Positive for: Clear to Auscultation, Good Air Exchange. Negative for: Wheezes Cardiovascular: Positive for: Regular Rate and Rhythm, Normal S1, S2. Negative for: Murmurs Abdomen: Positive for: Tenderness, Normal Bowel Sounds, Other ((+) murphys sign) . Negative for: Distention Neurological: Positive for: CN II-XII Intact, Speech Normal Skin: Positive for: Warm, Dry, Rashes, Normal Color Psychiatric: Positive for: Oriented x 3 - Medications Active Medications: Active Medications Generic Name Dose Route Start Last Admin Trade Name Freq PRN Reason Stop Dose Admin Heparin Sodium (Porcine) 5,000 units 10/17/16 14:00 10/17/16 21:20 Heparin SC 5,000 units Q8 [facility] Administration Hydromorphone HCl 0.5 mg 10/16/16 16:39 Dilaudid IVP Q4H PRN Pain, moderate (4-7) Metronidazole 500 mg in 100 mls @ 100 mls/hr 10/16/16 22:00 10/18/16 05:30 Flagyl IVPB 100 mls/hr Q8 [facility] Administration Ciprofloxacin 400 mg in 200 mls @ 133 mls/hr 10/17/16 00:00 10/17/16 23:50 Cipro 400mg/200ml Dsw IVPB 133 mls/hr Q12H [facility] Administration Sodium Chloride 1,000 mls @ 125 mls/hr 10/16/16 18:00 10/18/16 02:30 Sodium Chloride 0.45% IV 125 mls/hr .Q8H [facility] Administration Potassium Phosphate 15 mmole/ 255 mls @ 42.5 mls/hr 10/18/16 09:36 10/18/16 10:32 Sodium Chloride IVPB 10/18/16 15:35 42.5 mls/hr ONCE ONE Administration Insulin Human Regular 0 unit 10/17/16 00:00 10/18/16 06:07 Novolin R SC Not Given Q6H [facility] Protocol Ondansetron HCl 4 mg 10/16/16 16:45 Zofran Inj IVP Q6H PRN Nausea/Vomiting Pantoprazole Sodium 40 mg 10/17/16 10:00 10/18/16 10:33 Protonix Inj IVP 40 mg DAILY [facility] Administration - Patient Studies Lab Studies: Microbiology Studies 10/16/16 18:00 MRSA Culture (Admit) - Final Nose MRSA NOT DETECTED Lab Studies 10/18/16 10/18/16 10/18/16 Range/Units 06:04 06:04 05:51 WBC 8.5 (4.8-10.8) K/uL RBC 4.34 (3.80-5.20) Mil/uL Hgb 12.6 (11.0-16.0) g/dL Hct 37.7 (34.0-47.0) % MCV 86.8 (81.0-99.0) fL MCH 29.1 (27.0-31.0) pg MCHC 33.5 (33.0-37.0) g/dL RDW 13.8 (11.5-14.5) % Plt Count 224 (130-400) K/uL MPV 9.5 (7.2-11.7) fL Neut % (Auto) 58.8 (50.0-75.0) % Lymph % (Auto) 31.0 (20.0-40.0) % [place] % (Auto) 9.5 (0.0-10.0) % Eos % (Auto) 0.3 (0.0-4.0) % Baso % (Auto) 0.4 (0.0-2.0) % Neut # 5.0 (1.8-7.0) K/uL Lymph # 2.6 (1.0-4.3) K/uL [place] # 0.8 (0.0-0.8) K/uL Eos # 0.0 (0.0-0.7) K/uL Baso # 0.0 (0.0-0.2) K/uL Sodium 135 (132-148) mmol/L Potassium 3.4 L (3.6-5.2) mmol/L Chloride 104 (98-107) mmol/L Carbon Dioxide 12 L (22-30) mmol/L Anion Gap 22 H (10-20) BUN 8 (7-17) mg/dL Creatinine 0.5 L (0.7-1.2) MG/DL Est GFR ( Amer) > 60 Est GFR (Non-Af Amer) > 60 POC Glucose (mg/dL) 205 H (65-110) mg/dL Random Glucose 224 H (65-105) mg/dL Calcium 9.3 (8.6-10.4) mg/dl Phosphorus 1.9 L (2.5-4.5) mg/dL Magnesium 1.9 (1.6-2.3) mg/dL Total Bilirubin 4.6 H (0.2-1.3) mg/dL AST 631 H (14-36) U/L ALT 740 H (9-52) U/L Alkaline Phosphatase 325 H (38-126) U/L Total Protein 6.5 (6.3-8.3) g/dL Albumin 3.4 L (3.5-5.0) g/dL Globulin 3.1 (2.2-3.9) gm/dL Albumin/Globulin Ratio 1.1 (1.0-2.1) 10/18/16 10/17/16 10/17/16 Range/Units 00:26 17:35 12:50 WBC (4.8-10.8) K/uL RBC (3.80-5.20) Mil/uL Hgb (11.0-16.0) g/dL Hct (34.0-47.0) % MCV (81.0-99.0) fL MCH (27.0-31.0) pg MCHC (33.0-37.0) g/dL RDW (11.5-14.5) % Plt Count (130-400) K/uL MPV (7.2-11.7) fL Neut % (Auto) (50.0-75.0) % Lymph % (Auto) (20.0-40.0) % Rapides % (Auto) (0.0-10.0) % Eos % (Auto) (0.0-4.0) % Baso % (Auto) (0.0-2.0) % Neut # (1.8-7.0) K/uL Lymph # (1.0-4.3) K/uL [place] # (0.0-0.8) K/uL Eos # (0.0-0.7) K/uL Baso # (0.0-0.2) K/uL Sodium (132-148) mmol/L Potassium (3.6-5.2) mmol/L Chloride (98-107) mmol/L Carbon Dioxide (22-30) mmol/L Anion Gap (10-20) BUN (7-17) mg/dL Creatinine (0.7-1.2) MG/DL Est GFR ( Amer) Est GFR (Non-Af Amer) POC Glucose (mg/dL) 229 H 233 H 236 H (65-110) mg/dL Random Glucose (65-105) mg/dL Calcium (8.6-10.4) mg/dl Phosphorus (2.5-4.5) mg/dL Magnesium (1.6-2.3) mg/dL Total Bilirubin (0.2-1.3) mg/dL AST (14-36) U/L ALT (9-52) U/L Alkaline Phosphatase (38-126) U/L Total Protein (6.3-8.3) g/dL Albumin (3.5-5.0) g/dL Globulin (2.2-3.9) gm/dL Albumin/Globulin Ratio (1.0-2.1) Laboratory Results - last 24 hr 10/17/16 10/17/16 10/18/16 12:50 17:35 00:26 WBC RBC Hgb Hct MCV MCH MCHC RDW Plt Count MPV Neut % (Auto) Lymph % (Auto) Rapides % (Auto) Eos % (Auto) Baso % (Auto) Neut # Lymph # Rapides # Eos # Baso # Sodium Potassium Chloride Carbon Dioxide Anion Gap BUN Creatinine Est GFR ( Amer) Est GFR (Non-Af Amer) POC Glucose (mg/dL) 236 H 233 H 229 H Random Glucose Calcium Phosphorus Magnesium Total Bilirubin AST ALT Alkaline Phosphatase Total Protein Albumin Globulin Albumin/Globulin Ratio 10/18/16 10/18/16 10/18/16 05:51 06:04 06:04 WBC 8.5 RBC 4.34 Hgb 12.6 Hct 37.7 MCV 86.8 MCH 29.1 MCHC 33.5 RDW 13.8 Plt Count 224 MPV 9.5 Neut % (Auto) 58.8 Lymph % (Auto) 31.0 Rapides % (Auto) 9.5 Eos % (Auto) 0.3 Baso % (Auto) 0.4 Neut # 5.0 Lymph # 2.6 Rapides # 0.8 Eos # 0.0 Baso # 0.0 Sodium 135 Potassium 3.4 L Chloride 104 Carbon Dioxide 12 L Anion Gap 22 H BUN 8 Creatinine 0.5 L Est GFR ( Amer) > 60 Est GFR (Non-Af Amer) > 60 POC Glucose (mg/dL) 205 H Random Glucose 224 H Calcium 9.3 Phosphorus 1.9 L Magnesium 1.9 Total Bilirubin 4.6 H AST 631 H ALT 740 H Alkaline Phosphatase 325 H Total Protein 6.5 Albumin 3.4 L Globulin 3.1 Albumin/Globulin Ratio 1.1 Fingerstick Blood Sugar Results: 205 Critical Care Progress Note - Nutrition Nutrition: Nutrition Category Date Time Status NPO Diet [DIET] Diets 10/16/16 Breakfast Active Assessment/Plan - Assessment and Plan (Free Text) Assessment: Patient is a 51-year-old female with PMHx of diabetes, HTN, HLD, presented to ER with the sudden onset of abdominal pain, started night of 10/15 with associated n/v. Mild elevation of anion gap noted. Sonogram showed evidence of cholecystitis and CBD dilation. Patient underwent MRCP, ERCP and stent placement into the common bile duct. Patient to have robotic lap poli today. Neuro: no issues identified Pulmonary: no issues identified - incentive spirometry Cardiovascular: Hx of HTN, HLD Endocrine: Hx of DM - insulin (novolin) 0 unit sc q6 GI: acute cholecystitis and choledocholithiasis, transaminitis - GI consulted, Dr Coffman - robotic laproscopic cholestectomy today - s/p ERCP with stent placement into common bile duct with Dr. Rodriguez 10/17 - MRCP showing intra/extra hepatic biliary dilation with distal CBD stone consistent with choledocholithiasis - Continue to monitor LFTs - Patient will require eventual cholecystectomy, follow up surgical recommendations regarding timing - Gen Surg consulted, Dr Rivera - NPO Heme: no issues identified - Hgb wnl - platelets wnl Renal: no issues identified - BUN/Cr: 7/0.4 MSK: no issues identified - dilaudid 0.5mg iv q4 prn for moderate-severe pain Infectious Disease: elevated wbc - Afebrile, mild tachycardia - WBC 13.0 (increased from 12.1) - Cipro 400mg iv q12 - metronidazole 500mg iv q8 <Kehinde Hartley - Last Filed: 10/18/16 17:11> CCU Objective - Vital Signs / Intake & Output Vital Signs (Last 4 hours): Vital Signs Temp Pulse Resp BP Pulse Ox 10/18/16 17:00 97 H 22 95 10/18/16 16:45 97 H 22 145/87 94 L 10/18/16 16:15 97 H 23 148/85 93 L 10/18/16 16:00 98.2 F 99 H 21 94 L 10/18/16 15:39 99 H 23 155/87 H 94 L 10/18/16 15:14 102 H 23 147/81 92 L 10/18/16 15:11 105 H 94 L Intake and Output (Last 8hrs): Intake & Output 10/18/16 10/18/16 10/18/16 06:59 14:59 22:59 Intake Total 1050 585.0 42.5 Output Total 900 500 300 Balance 150 85.0 -257.5 Intake: Intake, IV Amount 1050 585.0 42.5 Left Forearm 335.0 42.5 Right Antecubital 1050 250 Output: Urine 900 500 300 Urethral (Malloy) 300 Urine, Voided 900 0 Other: # Voids Urine, Voided 1 - Medications Active Medications: Active Medications Generic Name Dose Route Start Last Admin Trade Name Freq PRN Reason Stop Dose Admin Heparin Sodium (Porcine) 5,000 units 10/17/16 14:00 10/17/16 21:20 Heparin SC 5,000 units Q8 [facility] Administration Hydromorphone HCl 0.5 mg 10/16/16 16:39 Dilaudid IVP Q4H PRN Pain, moderate (4-7) Metronidazole 500 mg in 100 mls @ 100 mls/hr 10/16/16 22:00 10/18/16 15:56 Flagyl IVPB Not Given Q8 [facility] Ciprofloxacin 400 mg in 200 mls @ 133 mls/hr 10/17/16 00:00 10/18/16 12:43 Cipro 400mg/200ml Dsw IVPB 200 mls Q12H [facility] Administration Sodium Chloride 1,000 mls @ 125 mls/hr 10/16/16 18:00 10/18/16 13:49 Sodium Chloride 0.45% IV Not Given .Q8H [facility] Insulin Human Regular 0 unit 10/17/16 00:00 10/18/16 13:49 Novolin R SC Not Given Q6H [facility] Protocol Ondansetron HCl 4 mg 10/18/16 15:27 Zofran Inj IVP Q4H PRN Nausea/Vomiting Pantoprazole Sodium 40 mg 10/17/16 10:00 10/18/16 10:33 Protonix Inj IVP 40 mg DAILY [facility] Administration - Patient Studies Lab Studies: Microbiology Studies 10/16/16 18:00 MRSA Culture (Admit) - Final Nose MRSA NOT DETECTED Lab Studies 10/18/16 10/18/16 10/18/16 Range/Units 06:04 06:04 05:51 WBC 8.5 (4.8-10.8) K/uL RBC 4.34 (3.80-5.20) Mil/uL Hgb 12.6 (11.0-16.0) g/dL Hct 37.7 (34.0-47.0) % MCV 86.8 (81.0-99.0) fL MCH 29.1 (27.0-31.0) pg MCHC 33.5 (33.0-37.0) g/dL RDW 13.8 (11.5-14.5) % Plt Count 224 (130-400) K/uL MPV 9.5 (7.2-11.7) fL Neut % (Auto) 58.8 (50.0-75.0) % Lymph % (Auto) 31.0 (20.0-40.0) % [place] % (Auto) 9.5 (0.0-10.0) % Eos % (Auto) 0.3 (0.0-4.0) % Baso % (Auto) 0.4 (0.0-2.0) % Neut # 5.0 (1.8-7.0) K/uL Lymph # 2.6 (1.0-4.3) K/uL [place] # 0.8 (0.0-0.8) K/uL Eos # 0.0 (0.0-0.7) K/uL Baso # 0.0 (0.0-0.2) K/uL Sodium 135 (132-148) mmol/L Potassium 3.4 L (3.6-5.2) mmol/L Chloride 104 (98-107) mmol/L Carbon Dioxide 12 L (22-30) mmol/L Anion Gap 22 H (10-20) BUN 8 (7-17) mg/dL Creatinine 0.5 L (0.7-1.2) MG/DL Est GFR ( Amer) > 60 Est GFR (Non-Af Amer) > 60 POC Glucose (mg/dL) 205 H (65-110) mg/dL Random Glucose 224 H (65-105) mg/dL Calcium 9.3 (8.6-10.4) mg/dl Phosphorus 1.9 L (2.5-4.5) mg/dL Magnesium 1.9 (1.6-2.3) mg/dL Total Bilirubin 4.6 H (0.2-1.3) mg/dL AST 631 H (14-36) U/L ALT 740 H (9-52) U/L Alkaline Phosphatase 325 H (38-126) U/L Total Protein 6.5 (6.3-8.3) g/dL Albumin 3.4 L (3.5-5.0) g/dL Globulin 3.1 (2.2-3.9) gm/dL Albumin/Globulin Ratio 1.1 (1.0-2.1) 10/18/16 10/17/16 Range/Units 00:26 17:35 WBC (4.8-10.8) K/uL RBC (3.80-5.20) Mil/uL Hgb (11.0-16.0) g/dL Hct (34.0-47.0) % MCV (81.0-99.0) fL MCH (27.0-31.0) pg MCHC (33.0-37.0) g/dL RDW (11.5-14.5) % Plt Count (130-400) K/uL MPV (7.2-11.7) fL Neut % (Auto) (50.0-75.0) % Lymph % (Auto) (20.0-40.0) % [place] % (Auto) (0.0-10.0) % Eos % (Auto) (0.0-4.0) % Baso % (Auto) (0.0-2.0) % Neut # (1.8-7.0) K/uL Lymph # (1.0-4.3) K/uL [place] # (0.0-0.8) K/uL Eos # (0.0-0.7) K/uL Baso # (0.0-0.2) K/uL Sodium (132-148) mmol/L Potassium (3.6-5.2) mmol/L Chloride (98-107) mmol/L Carbon Dioxide (22-30) mmol/L Anion Gap (10-20) BUN (7-17) mg/dL Creatinine (0.7-1.2) MG/DL Est GFR ( Amer) Est GFR (Non-Af Amer) POC Glucose (mg/dL) 229 H 233 H (65-110) mg/dL Random Glucose (65-105) mg/dL Calcium (8.6-10.4) mg/dl Phosphorus (2.5-4.5) mg/dL Magnesium (1.6-2.3) mg/dL Total Bilirubin (0.2-1.3) mg/dL AST (14-36) U/L ALT (9-52) U/L Alkaline Phosphatase (38-126) U/L Total Protein (6.3-8.3) g/dL Albumin (3.5-5.0) g/dL Globulin (2.2-3.9) gm/dL Albumin/Globulin Ratio (1.0-2.1) Laboratory Results - last 24 hr 10/17/16 10/18/16 10/18/16 17:35 00:26 05:51 WBC RBC Hgb Hct MCV MCH MCHC RDW Plt Count MPV Neut % (Auto) Lymph % (Auto) [place] % (Auto) Eos % (Auto) Baso % (Auto) Neut # Lymph # [place] # Eos # Baso # Sodium Potassium Chloride Carbon Dioxide Anion Gap BUN Creatinine Est GFR ( Amer) Est GFR (Non-Af Amer) POC Glucose (mg/dL) 233 H 229 H 205 H Random Glucose Calcium Phosphorus Magnesium Total Bilirubin AST ALT Alkaline Phosphatase Total Protein Albumin Globulin Albumin/Globulin Ratio 10/18/16 10/18/16 06:04 06:04 WBC 8.5 RBC 4.34 Hgb 12.6 Hct 37.7 MCV 86.8 MCH 29.1 MCHC 33.5 RDW 13.8 Plt Count 224 MPV 9.5 Neut % (Auto) 58.8 Lymph % (Auto) 31.0 [place] % (Auto) 9.5 Eos % (Auto) 0.3 Baso % (Auto) 0.4 Neut # 5.0 Lymph # 2.6 [place] # 0.8 Eos # 0.0 Baso # 0.0 Sodium 135 Potassium 3.4 L Chloride 104 Carbon Dioxide 12 L Anion Gap 22 H BUN 8 Creatinine 0.5 L Est GFR ( Amer) > 60 Est GFR (Non-Af Amer) > 60 POC Glucose (mg/dL) Random Glucose 224 H Calcium 9.3 Phosphorus 1.9 L Magnesium 1.9 Total Bilirubin 4.6 H AST 631 H ALT 740 H Alkaline Phosphatase 325 H Total Protein 6.5 Albumin 3.4 L Globulin 3.1 Albumin/Globulin Ratio 1.1 Critical Care Progress Note - Nutrition Nutrition: Nutrition Category Date Time Status Liquid Diet [DIET] Diets 10/18/16 Dinner Active Attending/Attestation - Attestation I have personally seen and examined this patient.: Yes I have fully participated in the care of the patient.: Yes I have reviewed all pertinent clinical information: Yes Notes (Text): 10/18/16 17:10 Patient seen and examined in the intensive care unit. Case discussed with house staff in the morning rounds. Robotic assisted lap cholecystectomy today Continue with ICU monitoring Continue antibiotics
[2016-10-18] MEDS ORDERED: Midazolam 2 MG/2 ML VIAL ONE (12:26)
[2016-10-18] MEDS ORDERED: Propofol 10 mg/ml Inj (20 ML) ONE (12:27)
[2016-10-18] MEDS ORDERED: Lidocaine 1% Inj (20ml) ONE (12:30)
[2016-10-18] MEDS ORDERED: Bupivacaine-Epi 0.25%-1:200,000 PF Inj ONE (12:30)
[2016-10-18] MEDS ORDERED: Lactated Ringer's 1,000 ML IV ONE ×3 (12:34→14:29)
[2016-10-18] MEDS: Ciprofloxacin 400mg/200ml D5W 400 MG/200 ML BAG IVPB SCH (12:43)
[2016-10-18] MEDS ORDERED: Rocuronium 10 mg/ml (5 ml) ONE (13:39)
[2016-10-18] MEDS ORDERED: Metoprolol 1 mg/ml Inj IVP ONE (14:06)
[2016-10-18] MEDS ORDERED: Neostigmine Methylsulfate 3mg/3ml Syringe IV ONE (14:35)
[2016-10-18] MEDS ORDERED: Morphine 4 MG/ML VIAL ONE ×2 (14:43→14:53)
--- NOTE | 2016-10-18 15:20 | PCM.SURG1 ---
Surgeon's Initial Post Op Note - Surgeon's Notes Surgeon: Nicole Satellite Technician: PGY4 Type of Anesthesia: General Endo Pre-Operative Diagnosis: Acute cholecystitis, cholelithiasis Operative Findings: Acute cholecystitis, cholelithiasis Post-Operative Diagnosis: Acute cholecystitis, cholelithiasis Operation Performed: Robotic assisted lap cholecystectomy Specimen/Specimens Removed: Gallbladder Estimated Blood Loss: EBL {In ML}: 50 Blood Products Given: N/A Drains Used: Aayush Post-Op Condition: Good Date of Surgery/Procedure: 10/18/16 Time of Surgery/Procedure: 13:00
--- NOTE | 2016-10-18 17:26 | CP.PCM.PN ---
<Asad Del Castillo - Last Filed: 10/18/16 17:27> Subjective - Date & Time of Evaluation Date of Evaluation: 10/18/16 Time of Evaluation: 08:00 - Subjective Subjective: PGY4 GI Follow-up Pt seen and examined bedside Seen s/p surgery states that she has some discomfort s/p surgery ROS: 10 point ROS conducted, neg, other than whats stated above Objective - Vital Signs/Intake and Output Vital Signs (last 24 hours): Temp Pulse Resp BP Pulse Ox 98.2 F 97 H 22 145/87 95 10/18/16 16:00 10/18/16 17:00 10/18/16 17:00 10/18/16 16:45 10/18/16 17:00 Intake and Output: 10/18/16 10/18/16 06:59 18:59 Intake Total 1550 670.0 Output Total 1300 1100 Balance 250 -430.0 - Medications Medications: Current Medications Heparin Sodium (Porcine) (Heparin) 5,000 units SC Q8 [facility] Last Admin: 10/17/16 21:20 Dose: 5,000 units Hydromorphone HCl (Dilaudid) 0.5 mg IVP Q4H PRN PRN Reason: Pain, moderate (4-7) Metronidazole (Flagyl) 500 mg in 100 mls @ 100 mls/hr IVPB Q8 [facility] Last Admin: 10/18/16 15:56 Dose: Not Given Ciprofloxacin (Cipro 400mg/200ml Dsw) 400 mg in 200 mls @ 133 mls/hr IVPB Q12H [facility] Last Admin: 10/18/16 12:43 Dose: 200 mls Sodium Chloride (Sodium Chloride 0.45%) 1,000 mls @ 125 mls/hr IV .Q8H [facility] Last Admin: 10/18/16 13:49 Dose: Not Given Insulin Human Regular (Novolin R) 0 unit SC Q6H [facility] PRN Reason: Protocol Last Admin: 10/18/16 13:49 Dose: Not Given Ondansetron HCl (Zofran Inj) 4 mg IVP Q4H PRN PRN Reason: Nausea/Vomiting Pantoprazole Sodium (Protonix Inj) 40 mg IVP DAILY [facility] Last Admin: 10/18/16 10:33 Dose: 40 mg - Labs Labs: 10/18/16 06:04 10/18/16 06:04 PT 12.9 SECONDS (9.7-12.2) H 10/17/16 06:38 INR 1.2 10/17/16 06:38 APTT 26 SECONDS (21-34) 10/17/16 06:38 - Constitutional Appears: Well, No Acute Distress - Head Exam Head Exam: ATRAUMATIC, NORMOCEPHALIC - Eye Exam Eye Exam: Normal appearance - ENT Exam ENT Exam: Mucous Membranes Moist, Normal Exam - Respiratory Exam Respiratory Exam: Clear to Ausculation Bilateral, NORMAL BREATHING PATTERN. absent: Rales, Rhonchi, Wheezes, Respiratory Distress - Cardiovascular Exam Cardiovascular Exam: REGULAR RHYTHM, +S1, +S2 - GI/Abdominal Exam GI & Abdominal Exam: Soft, Tenderness, Hypoactive Bowel Sounds. absent: Rigid - Extremities Exam Extremities Exam: absent: Joint Swelling, Pedal Edema - Neurological Exam Neurological Exam: Alert, Awake, Oriented x3 - Psychiatric Exam Psychiatric exam: Normal Affect, Normal Mood - Skin Skin Exam: Dry, Intact, Normal Color, Warm Assessment and Plan - Assessment and Plan (Free Text) Assessment: Braden Castillo is a 51F w/ hx of who presented rith RUQ and anion gap met acidosis. Etiology of the RUQ pain is likely 2/2 cholecystitis. Pt also has concurrent elevated in LFTs including direct janes and alk phos, though MRCP revealed a distal CBD stone, s/p ERCP and stenting Cholecystitis, s/p lap poli Transaminema 2/2 to above, r/o CBD pathology and/or obstruction Anion Gap Metabolic Acidosis, DKA? Plan: -MRCP reviewed and report acknowledged -post-op management as per surg and primary team -continue abx as per ID -Blood culture pending -Correction and w/u of met acidosis as per ICU team -will need to follow-up with Dr. Pinto as outpt in 4 weeks, audelia have stent removal in 6-8weeks D/W Dr. Coffman <Samy Coffman Y - Last Filed: 10/18/16 17:42> Objective - Vital Signs/Intake and Output Vital Signs (last 24 hours): Temp Pulse Resp BP Pulse Ox 98.2 F 97 H 22 145/87 95 10/18/16 16:00 10/18/16 17:00 10/18/16 17:00 10/18/16 16:45 10/18/16 17:00 Intake and Output: 10/18/16 10/18/16 06:59 18:59 Intake Total 1550 670.0 Output Total 1300 1100 Balance 250 -430.0 - Medications Medications: Current Medications Heparin Sodium (Porcine) (Heparin) 5,000 units SC Q8 [facility] Last Admin: 10/17/16 21:20 Dose: 5,000 units Hydromorphone HCl (Dilaudid) 0.5 mg IVP Q4H PRN PRN Reason: Pain, moderate (4-7) Metronidazole (Flagyl) 500 mg in 100 mls @ 100 mls/hr IVPB Q8 [facility] Last Admin: 10/18/16 15:56 Dose: Not Given Ciprofloxacin (Cipro 400mg/200ml Dsw) 400 mg in 200 mls @ 133 mls/hr IVPB Q12H [facility] Last Admin: 10/18/16 12:43 Dose: 200 mls Sodium Chloride (Sodium Chloride 0.45%) 1,000 mls @ 125 mls/hr IV .Q8H [facility] Last Admin: 10/18/16 13:49 Dose: Not Given Insulin Human Regular (Novolin R) 0 unit SC Q6H [facility] PRN Reason: Protocol Last Admin: 10/18/16 13:49 Dose: Not Given Ondansetron HCl (Zofran Inj) 4 mg IVP Q4H PRN PRN Reason: Nausea/Vomiting Pantoprazole Sodium (Protonix Inj) 40 mg IVP DAILY [facility] Last Admin: 10/18/16 10:33 Dose: 40 mg - Labs Labs: 10/18/16 06:04 10/18/16 06:04 PT 12.9 SECONDS (9.7-12.2) H 10/17/16 06:38 INR 1.2 10/17/16 06:38 APTT 26 SECONDS (21-34) 10/17/16 06:38 Attending/Attestation - Attestation I have personally seen and examined this patient.: Yes I have fully participated in the care of the patient.: Yes I have reviewed all pertinent clinical information, including history, physical exam and plan: Yes Notes (Text): 10/18/16 17:40 I have seen and examined patient with GI fellow. No acute events overnight, she is s/p cholecystectomy today. She complains of mild tenderness to palpation at surgical site but otherwise denies nausea, vomiting, fever/chills. Abdominal pain, acute cholecystitis Transaminitis, choledocholithiasis s/p ERCP with stent placement - Continue with antibiotic therapy - Pain control - Continue to monitor LFTs - Patient will require repeat ERCP with stent removal in 2 months, to be arranged as outpatient with Dr. Pinto - Further management as per surgical team. Will sign off case, please reconsult as necessary, thank you.
--- NOTE | 2016-10-18 18:30 | CP.PCM.PN ---
Subjective - Date & Time of Evaluation Date of Evaluation: 10/18/16 Time of Evaluation: 13:20 - Subjective Subjective: clinically same Objective - Vital Signs/Intake and Output Vital Signs (last 24 hours): Temp Pulse Resp BP Pulse Ox 98.2 F 98 H 20 152/90 H 95 10/18/16 16:00 10/18/16 18:00 10/18/16 18:00 10/18/16 17:45 10/18/16 18:00 Intake and Output: 10/18/16 10/18/16 06:59 18:59 Intake Total 1550 712.5 Output Total 1300 1600 Balance 250 -887.5 - Medications Medications: Current Medications Heparin Sodium (Porcine) (Heparin) 5,000 units SC Q8 [facility] Last Admin: 10/17/16 21:20 Dose: 5,000 units Hydromorphone HCl (Dilaudid) 0.5 mg IVP Q4H PRN PRN Reason: Pain, moderate (4-7) Metronidazole (Flagyl) 500 mg in 100 mls @ 100 mls/hr IVPB Q8 [facility] Last Admin: 10/18/16 15:56 Dose: Not Given Ciprofloxacin (Cipro 400mg/200ml Dsw) 400 mg in 200 mls @ 133 mls/hr IVPB Q12H [facility] Last Admin: 10/18/16 12:43 Dose: 200 mls Sodium Chloride (Sodium Chloride 0.45%) 1,000 mls @ 125 mls/hr IV .Q8H [facility] Last Admin: 10/18/16 13:49 Dose: Not Given Insulin Human Regular (Novolin R) 0 unit SC Q6H [facility] PRN Reason: Protocol Last Admin: 10/18/16 13:49 Dose: Not Given Ondansetron HCl (Zofran Inj) 4 mg IVP Q4H PRN PRN Reason: Nausea/Vomiting Pantoprazole Sodium (Protonix Inj) 40 mg IVP DAILY [facility] Last Admin: 10/18/16 10:33 Dose: 40 mg - Labs Labs: 10/18/16 06:04 10/18/16 06:04 PT 12.9 SECONDS (9.7-12.2) H 10/17/16 06:38 INR 1.2 10/17/16 06:38 APTT 26 SECONDS (21-34) 10/17/16 06:38 - Constitutional Appears: Well - Head Exam Head Exam: ATRAUMATIC, NORMAL INSPECTION, NORMOCEPHALIC - Eye Exam Eye Exam: EOMI, Normal appearance, PERRL Pupil Exam: NORMAL ACCOMODATION, PERRL - ENT Exam ENT Exam: Mucous Membranes Moist, Normal Exam - Neck Exam Neck Exam: Full ROM, Normal Inspection. absent: Lymphadenopathy - Respiratory Exam Respiratory Exam: Decreased Breath Sounds - Cardiovascular Exam Cardiovascular Exam: REGULAR RHYTHM, +S1, +S2 - GI/Abdominal Exam GI & Abdominal Exam: Soft, Diminished Bowel Sounds - Rectal Exam Rectal Exam: Deferred
--- NOTE | 2016-10-18 23:22 | OP ---
PROCEDURE DATE: 10/18/2016 PREOPERATIVE DIAGNOSES: 1. Acute cholecystitis with cholelithiasis. 2. Choledocholithiasis. 3. Cholangitis. 4. Status post ERCP and stent placement. POSTOPERATIVE DIAGNOSES: 1. Acute cholecystitis with cholelithiasis. 2. Choledocholithiasis. 3. Cholangitis. 4. Status post ERCP and stent placement. 5. Extensive postinfectious adhesions. 6. Phlegmonous cholecystitis. PROCEDURE DONE: 1. Robotic cholecystectomy. 2. Robotic extensive lysis of adhesion. 3. Robotic aspiration of the gallbladder and the drainage of pericholecystic fluid collection. SURGEON: Dr. Rivera. STATION TENDER: BRAD Freeman and Marcelo Donovan, PGY-2 resident. TYPE OF ANESTHESIA: General endotracheal tube anesthesia. ESTIMATED BLOOD LOSS: Around 15 mL. DRAINS: 19-Bulgarian Aayush drain was placed. COMPLICATIONS: None. INTRAOPERATIVE FINDINGS: The patient had phlegmonous acute on chronic cholecystitis with extremely thickened and edematous gallbladder and patient had post-infectious adhesion in the right upper quadrant and patient is status post ERCP and stent for cholangitis and a dilated CBD. On intraoperative steps, this 51-year-old female who was diagnosed with cholecystitis, choledocholithiasis, cholangitis, and patient is status post ERCP and stent placement and patient was consented for robotic cholecystectomy, possible open, possible intraoperative cholangiogram. DESCRIPTION OF PROCEDURE: Patient was brought to the OR, placed supine on the operating table. After induction of the anesthesia, the Malloy catheter and the OG tube was placed and the abdomen was prepped and draped in the usual sterile fashion. A supraumbilical transverse incision was made after incising skin and subcutaneous tissue and fascia. Robotic camera port was placed. Another three 8 mm robotic ports were placed in the upper abdomen. The robot was brought in, camera arm as well as arm 1 and arm 2 was docked, and the gallbladder appeared to be extremely thickened, edematous and there was postinflammatory changes and fluid collection. First, lysis of adhesion was done and the gallbladder was aspirated percutaneously through the port and bile was sent for the culture and after decompression of the gallbladder, the pericholecystic fluid collection was drained and aspirated and suction irrigation was done. Now the Calot's triangle dissection was done. Cystic duct and cystic artery were identified. Cystic duct appeared to be extremely thickened and edematous and intraoperative firefly was used to identify the common bile duct and cystic duct and due to the large size of the cystic duct, the cystic duct was stapled with the FELICITAS and the cystic artery and vein was clipped with robotic clips and the gallbladder was dissected free from the gallbladder fossa, taken in an EndoCatch bag, taken out through the umbilical port site later on after undocking the robot. Now the proper hemostasis was achieved. Suction irrigation of the gallbladder fossa as well as perihepatic area was done and a 19-Bulgarian Aayush drain was placed and drain was secured to the skin. All the instruments were taken out. Robot was undocked. All the ports were taken out under vision. Pneumo was deflated. Due to the extensive inflammation and extensive nature of the disease process, it took approximately 40-60 minute extra for the routine procedure. The patient tolerated the procedure well. Count of the instruments was correct. There was no apparent complications. The patient was sent to the post-anesthesia care in a stable condition. Casey Rivera MD
[2016-10-19] MEDS: Ciprofloxacin 400mg/200ml D5W 400 MG/200 ML BAG IVPB SCH ×2 (00:52→11:55)
[2016-10-19] MEDS: (Novolin R) Insulin Human Regular 100 units/ml vial SC SCH ×5 (00:55→21:56)
[2016-10-19] MEDS: Sodium Chloride 0.45% 1,000 ML IV SCH ×3 (02:22→19:45)
[2016-10-19] MEDS: metroNIDAZOLE IV 500 mg/100 ml 500 MG/100 ML BAG IVPB SCH ×3 (06:00→21:58)
[2016-10-19 06:46] LABS: BASO % 0.1 % (0.0-2.0); HEMATOCRIT 43.9 % (34.0-47.0); LYMPH # 3.2 K/uL (1.0-4.3); LYMPH % 27.4 % (20.0-40.0); MEAN CORPUSCULAR HEMOGLOBIN 28.9 pg (27.0-31.0); MEAN CORPUSCULAR HGB CONC 32.8 g/dL (33.0-37.0); MEAN PLATELET VOLUME 9.1 fL (7.2-11.7); MONO # 1.2 K/uL (0.0-0.8); MONO % 10.4 % (0.0-10.0); NRBC % 0.1 % (0.0-2.0); RED CELL DISTRIBUTION WIDTH 14.2 % (11.5-14.5); WHITE BLOOD COUNT 11.7 K/uL (4.8-10.8)
[2016-10-19 06:54] LABS: ALB/GLOB RATIO 1.1 (1.0-2.1); ALKALINE PHOSPHATASE 325 U/L (38-126); ALT/SGPT 601 U/L (9-52); AST/SGOT 182 U/L (14-36); BILIRUBIN,TOTAL 2.4 mg/dL (0.2-1.3); BLOOD UREA NITROGEN 10 mg/dL (7-17); CALCIUM 9.7 mg/dl (8.6-10.4); CARBON DIOXIDE 12 mmol/L (22-30); CHLORIDE 104 mmol/L (98-107); GFR AFRICAN-AMERICAN > 60; GLUCOSE,RANDOM 284 mg/dL (65-105); PHOSPHOROUS 2.7 mg/dL (2.5-4.5); POTASSIUM 4.1 mmol/L (3.6-5.2); SODIUM 133 mmol/L (132-148)
--- NOTE | 2016-10-19 07:27 | CP.CCUPN ---
CCU Subjective - Physician Review Subjective (Free Text): Patient seen and examined at bedside this morning. No acute events overnight. Patient complained of mild discomfort at surgical site. Also complained of nausea after eating. She had no other complaints, she denies chest pain, shortness of breath, fever, chills, vomiting, diarrhea. 10/19/16 15:54 CCU Objective - Vital Signs / Intake & Output Vital Signs (Last 4 hours): Vital Signs Temp Pulse Resp BP Pulse Ox 10/19/16 06:04 92 H 18 165/93 H 93 L 10/19/16 06:00 98 H 22 94 L 10/19/16 05:46 98 H 24 174/95 H 98 10/19/16 05:16 88 22 158/91 H 98 10/19/16 05:00 90 21 98 10/19/16 04:46 90 20 157/86 H 98 10/19/16 04:15 95 H 23 163/95 H 96 10/19/16 04:00 98.5 F 94 H 21 97 10/19/16 03:45 97 H 17 145/91 H 96 Intake and Output (Last 8hrs): Intake & Output 10/18/16 10/19/16 10/19/16 22:59 06:59 14:59 Intake Total 1082.5 1430 Output Total 2130 1430 Balance -1047.5 0 Intake: Intake, IV Amount 602.5 1050 Left Forearm 602.5 1050 Oral 480 380 Output: Drainage 30 Right Abdomen 30 Urine 2100 1400 Urethral (Malloy) 2100 1400 Emesis 30 Other: # Bowel Movements 0 0 - Physical Exam Head: Positive for: Normocephalic Extroacular Muscles: Positive for: EOMI Respiratory/Chest: Positive for: Clear to Auscultation, Good Air Exchange. Negative for: Wheezes Cardiovascular: Positive for: Regular Rate and Rhythm, Normal S1, S2. Negative for: Murmurs Abdomen: Positive for: Tenderness, Normal Bowel Sounds, Other ((+) murphys sign) . Negative for: Distention Neurological: Positive for: CN II-XII Intact, Speech Normal Skin: Positive for: Warm, Dry, Rashes, Normal Color Psychiatric: Positive for: Oriented x 3 - Medications Active Medications: Active Medications Generic Name Dose Route Start Last Admin Trade Name Freq PRN Reason Stop Dose Admin Heparin Sodium (Porcine) 5,000 units 10/17/16 14:00 10/17/16 21:20 Heparin SC 5,000 units Q8 [facility] Administration Hydromorphone HCl 0.5 mg 10/16/16 16:39 Dilaudid IVP Q4H PRN Pain, moderate (4-7) Metronidazole 500 mg in 100 mls @ 100 mls/hr 10/16/16 22:00 10/19/16 06:00 Flagyl IVPB 100 mls/hr Q8 [facility] Administration Ciprofloxacin 400 mg in 200 mls @ 133 mls/hr 10/17/16 00:00 10/19/16 00:52 Cipro 400mg/200ml Dsw IVPB 133 mls/hr Q12H [facility] Administration Sodium Chloride 1,000 mls @ 125 mls/hr 10/16/16 18:00 10/19/16 02:22 Sodium Chloride 0.45% IV 125 mls/hr .Q8H [facility] Administration Insulin Human Regular 0 unit 10/17/16 00:00 10/19/16 06:12 Novolin R SC 1 unit Q6H [facility] Administration Protocol Ondansetron HCl 4 mg 10/18/16 15:27 10/19/16 06:00 Zofran Inj IVP 4 mg Q4H PRN Administration Nausea/Vomiting Pantoprazole Sodium 40 mg 10/17/16 10:00 10/18/16 10:33 Protonix Inj IVP 40 mg DAILY [facility] Administration - Patient Studies Lab Studies: Microbiology Studies 10/18/16 15:21 Gram Stain - Final Bile Lab Studies 10/19/16 10/19/16 10/19/16 Range/Units 06:34 06:34 06:10 WBC 11.7 H (4.8-10.8) K/uL RBC 4.99 (3.80-5.20) Mil/uL Hgb 14.4 (11.0-16.0) g/dL Hct 43.9 (34.0-47.0) % MCV 88.0 (81.0-99.0) fL MCH 28.9 (27.0-31.0) pg MCHC 32.8 L (33.0-37.0) g/dL RDW 14.2 (11.5-14.5) % Plt Count 275 (130-400) K/uL MPV 9.1 (7.2-11.7) fL Neut % (Auto) 62.1 (50.0-75.0) % Lymph % (Auto) 27.4 (20.0-40.0) % [place] % (Auto) 10.4 H (0.0-10.0) % Eos % (Auto) 0.0 (0.0-4.0) % Baso % (Auto) 0.1 (0.0-2.0) % Neut # 7.3 H (1.8-7.0) K/uL Lymph # 3.2 (1.0-4.3) K/uL [place] # 1.2 H (0.0-0.8) K/uL Eos # 0.0 (0.0-0.7) K/uL Baso # 0.0 (0.0-0.2) K/uL Sodium 133 (132-148) mmol/L Potassium 4.1 (3.6-5.2) mmol/L Chloride 104 (98-107) mmol/L Carbon Dioxide 12 L (22-30) mmol/L Anion Gap 21 H (10-20) BUN 10 (7-17) mg/dL Creatinine 0.5 L (0.7-1.2) MG/DL Est GFR ( Amer) > 60 Est GFR (Non-Af Amer) > 60 POC Glucose (mg/dL) 196 H (65-110) mg/dL Random Glucose 284 H (65-105) mg/dL Calcium 9.7 (8.6-10.4) mg/dl Phosphorus 2.7 (2.5-4.5) mg/dL Magnesium 2.0 (1.6-2.3) mg/dL Total Bilirubin 2.4 H (0.2-1.3) mg/dL AST 182 H D (14-36) U/L ALT 601 H (9-52) U/L Alkaline Phosphatase 325 H (38-126) U/L Total Protein 7.0 (6.3-8.3) g/dL Albumin 3.6 (3.5-5.0) g/dL Globulin 3.4 (2.2-3.9) gm/dL Albumin/Globulin Ratio 1.1 (1.0-2.1) 10/19/16 10/18/16 Range/Units 00:12 17:35 WBC (4.8-10.8) K/uL RBC (3.80-5.20) Mil/uL Hgb (11.0-16.0) g/dL Hct (34.0-47.0) % MCV (81.0-99.0) fL MCH (27.0-31.0) pg MCHC (33.0-37.0) g/dL RDW (11.5-14.5) % Plt Count (130-400) K/uL MPV (7.2-11.7) fL Neut % (Auto) (50.0-75.0) % Lymph % (Auto) (20.0-40.0) % [place] % (Auto) (0.0-10.0) % Eos % (Auto) (0.0-4.0) % Baso % (Auto) (0.0-2.0) % Neut # (1.8-7.0) K/uL Lymph # (1.0-4.3) K/uL [place] # (0.0-0.8) K/uL Eos # (0.0-0.7) K/uL Baso # (0.0-0.2) K/uL Sodium (132-148) mmol/L Potassium (3.6-5.2) mmol/L Chloride (98-107) mmol/L Carbon Dioxide (22-30) mmol/L Anion Gap (10-20) BUN (7-17) mg/dL Creatinine (0.7-1.2) MG/DL Est GFR ( Amer) Est GFR (Non-Af Amer) POC Glucose (mg/dL) 216 H 199 H (65-110) mg/dL Random Glucose (65-105) mg/dL Calcium (8.6-10.4) mg/dl Phosphorus (2.5-4.5) mg/dL Magnesium (1.6-2.3) mg/dL Total Bilirubin (0.2-1.3) mg/dL AST (14-36) U/L ALT (9-52) U/L Alkaline Phosphatase (38-126) U/L Total Protein (6.3-8.3) g/dL Albumin (3.5-5.0) g/dL Globulin (2.2-3.9) gm/dL Albumin/Globulin Ratio (1.0-2.1) Laboratory Results - last 24 hr 10/18/16 10/19/16 10/19/16 17:35 00:12 06:10 WBC RBC Hgb Hct MCV MCH MCHC RDW Plt Count MPV Neut % (Auto) Lymph % (Auto) [place] % (Auto) Eos % (Auto) Baso % (Auto) Neut # Lymph # [place] # Eos # Baso # Sodium Potassium Chloride Carbon Dioxide Anion Gap BUN Creatinine Est GFR ( Amer) Est GFR (Non-Af Amer) POC Glucose (mg/dL) 199 H 216 H 196 H Random Glucose Calcium Phosphorus Magnesium Total Bilirubin AST ALT Alkaline Phosphatase Total Protein Albumin Globulin Albumin/Globulin Ratio 10/19/16 10/19/16 06:34 06:34 WBC 11.7 H RBC 4.99 Hgb 14.4 Hct 43.9 MCV 88.0 MCH 28.9 MCHC 32.8 L RDW 14.2 Plt Count 275 MPV 9.1 Neut % (Auto) 62.1 Lymph % (Auto) 27.4 [place] % (Auto) 10.4 H Eos % (Auto) 0.0 Baso % (Auto) 0.1 Neut # 7.3 H Lymph # 3.2 [place] # 1.2 H Eos # 0.0 Baso # 0.0 Sodium 133 Potassium 4.1 Chloride 104 Carbon Dioxide 12 L Anion Gap 21 H BUN 10 Creatinine 0.5 L Est GFR ( Amer) > 60 Est GFR (Non-Af Amer) > 60 POC Glucose (mg/dL) Random Glucose 284 H Calcium 9.7 Phosphorus 2.7 Magnesium 2.0 Total Bilirubin 2.4 H AST 182 H D ALT 601 H Alkaline Phosphatase 325 H Total Protein 7.0 Albumin 3.6 Globulin 3.4 Albumin/Globulin Ratio 1.1 Fingerstick Blood Sugar Results: 196 Review of Systems - Cardiovascular Cardiovascular: UNREMARKABLE - Respiratory Respiratory: UNREMARKABLE - Gastrointestinal Gastrointestinal: UNREMARKABLE - Genitourinary Genitourinary: UNREMARKABLE Critical Care Progress Note - Nutrition Nutrition: Nutrition Category Date Time Status Liquid Diet [DIET] Diets 10/18/16 Dinner Active Assessment/Plan - Assessment and Plan (Free Text) Assessment: Patient is a 51-year-old female with PMHx of diabetes, HTN, HLD, presented to ER with the sudden onset of abdominal pain, started night of 10/15 with associated n/v. Mild elevation of anion gap noted. Sonogram showed evidence of cholecystitis and CBD dilation. Patient underwent MRCP, ERCP and stent placement into the common bile duct. Patient is s/p robotic lap poli performed yesterday 10/18. Patient cleared by surgery for transfer to med/surg floor. Neuro: no issues identified Pulmonary: no issues identified - incentive spirometry Cardiovascular: Hx of HTN, HLD Endocrine: Hx of DM - insulin (novolin) 0 unit sc q6 GI: acute cholecystitis and choledocholithiasis, transaminitis - GI consulted, Dr Coffman - s/p robotic laproscopic cholestectomy 10/19 - s/p ERCP with stent placement into common bile duct with Dr. Rodriguez 10/17 - MRCP showing intra/extra hepatic biliary dilation with distal CBD stone consistent with choledocholithiasis - LFTs downtrending - alk phos elevated, direct bili elevated - Gen Surg consulted, Dr Rivera - advance diet as tolerated Heme: no issues identified - Hgb wnl - platelets wnl Renal: no issues identified; anion gap metabolic acidosis - BUN/Cr: 10/0.5 - anion gap 21 MSK: no issues identified - dilaudid 0.5mg iv q4 prn for moderate-severe pain Infectious Disease: elevated wbc - Afebrile, mild tachycardia - WBC 11.7 (increased from 8.5 yesterday) - Cipro 400mg iv q12 - metronidazole 500mg iv q8 - MRSA not detected from nose source - body fluid culture pending
[2016-10-19] MEDS: HYDROmorphone 0.5 mg/0.5 ml ISec IVP PRN ×4 (08:29→21:23)
--- NOTE | 2016-10-19 08:42 | CP.PCM.PN ---
<Pratima Colbert - Last Filed: 10/19/16 09:13> Subjective - Date & Time of Evaluation Date of Evaluation: 10/19/16 Time of Evaluation: 08:39 - Subjective Subjective: Patient was seen and examined at bedside. Patient is s/p robotic lap cholecystectomy, POD#1. Patient reports pain at surgical site. Patient states she felt nauseas after eating. Objective - Vital Signs/Intake and Output Vital Signs (last 24 hours): Temp Pulse Resp BP Pulse Ox 98.5 F 92 H 18 165/93 H 93 L 10/19/16 04:00 10/19/16 06:04 10/19/16 06:04 10/19/16 06:04 10/19/16 06:04 Intake and Output: 10/19/16 10/19/16 06:59 18:59 Intake Total 2385 Output Total 2460 Balance -75 - Medications Medications: Current Medications Heparin Sodium (Porcine) (Heparin) 5,000 units SC Q8 [facility] Last Admin: 10/17/16 21:20 Dose: 5,000 units Hydromorphone HCl (Dilaudid) 0.5 mg IVP Q4H PRN PRN Reason: Pain, moderate (4-7) Last Admin: 10/19/16 08:29 Dose: 0.5 mg Metronidazole (Flagyl) 500 mg in 100 mls @ 100 mls/hr IVPB Q8 [facility] Last Admin: 10/19/16 06:00 Dose: 100 mls/hr Ciprofloxacin (Cipro 400mg/200ml Dsw) 400 mg in 200 mls @ 133 mls/hr IVPB Q12H [facility] Last Admin: 10/19/16 00:52 Dose: 133 mls/hr Sodium Chloride (Sodium Chloride 0.45%) 1,000 mls @ 125 mls/hr IV .Q8H [facility] Last Admin: 10/19/16 02:22 Dose: 125 mls/hr Insulin Human Regular (Novolin R) 0 unit SC Q6H [facility] PRN Reason: Protocol Last Admin: 10/19/16 06:12 Dose: 1 unit Ondansetron HCl (Zofran Inj) 4 mg IVP Q4H PRN PRN Reason: Nausea/Vomiting Last Admin: 10/19/16 06:00 Dose: 4 mg Pantoprazole Sodium (Protonix Inj) 40 mg IVP DAILY [facility] Last Admin: 10/18/16 10:33 Dose: 40 mg - Labs Labs: 10/19/16 06:34 10/19/16 06:34 PT 12.9 SECONDS (9.7-12.2) H 10/17/16 06:38 INR 1.2 10/17/16 06:38 APTT 26 SECONDS (21-34) 10/17/16 06:38 - Head Exam Head Exam: NORMAL INSPECTION, NORMOCEPHALIC - Eye Exam Eye Exam: EOMI, Normal appearance - ENT Exam ENT Exam: Mucous Membranes Moist - Respiratory Exam Respiratory Exam: Clear to Ausculation Bilateral, NORMAL BREATHING PATTERN. absent: Rales, Rhonchi, Wheezes, Respiratory Distress - Cardiovascular Exam Cardiovascular Exam: Tachycardia, REGULAR RHYTHM, +S1, +S2 - GI/Abdominal Exam GI & Abdominal Exam: Soft, Tenderness (s/p surgery), Normal Bowel Sounds. absent: Distended, Firm - Extremities Exam Extremities Exam: absent: Pedal Edema, Tenderness - Neurological Exam Neurological Exam: Alert, Awake, Oriented x3 - Psychiatric Exam Psychiatric exam: Normal Affect, Normal Mood - Skin Skin Exam: Dry, Intact, Normal Color, Warm Assessment and Plan - Assessment and Plan (Free Text) Assessment: 51 year old female s/p robotic assisted lap cholecystectomy, POD#1. - Continue clear liquid diet; Will advance diet slowly. - Continue antibiotics and pain control. - Continue medical management as per ICU team. <Casey Rivera - Last Filed: 10/19/16 09:55> Objective - Vital Signs/Intake and Output Vital Signs (last 24 hours): Temp Pulse Resp BP Pulse Ox 98.9 F 97 H 23 167/93 H 90 L 10/19/16 08:00 10/19/16 08:42 10/19/16 08:42 10/19/16 08:42 10/19/16 08:42 Intake and Output: 10/19/16 10/19/16 06:59 18:59 Intake Total 2385 375 Output Total 2460 390 Balance -75 -15 - Medications Medications: Current Medications Heparin Sodium (Porcine) (Heparin) 5,000 units SC Q8 [facility] Last Admin: 10/17/16 21:20 Dose: 5,000 units Hydromorphone HCl (Dilaudid) 0.5 mg IVP Q4H PRN PRN Reason: Pain, moderate (4-7) Last Admin: 10/19/16 08:29 Dose: 0.5 mg Metronidazole (Flagyl) 500 mg in 100 mls @ 100 mls/hr IVPB Q8 [facility] Last Admin: 10/19/16 06:00 Dose: 100 mls/hr Ciprofloxacin (Cipro 400mg/200ml Dsw) 400 mg in 200 mls @ 133 mls/hr IVPB Q12H [facility] Last Admin: 10/19/16 00:52 Dose: 133 mls/hr Sodium Chloride (Sodium Chloride 0.45%) 1,000 mls @ 125 mls/hr IV .Q8H [facility] Last Admin: 10/19/16 02:22 Dose: 125 mls/hr Insulin Human Regular (Novolin R) 0 unit SC Q6H [facility] PRN Reason: Protocol Last Admin: 10/19/16 06:12 Dose: 1 unit Ondansetron HCl (Zofran Inj) 4 mg IVP Q4H PRN PRN Reason: Nausea/Vomiting Last Admin: 10/19/16 06:00 Dose: 4 mg Pantoprazole Sodium (Protonix Inj) 40 mg IVP DAILY [facility] Last Admin: 10/18/16 10:33 Dose: 40 mg - Labs Labs: 10/19/16 06:34 10/19/16 06:34 PT 12.9 SECONDS (9.7-12.2) H 10/17/16 06:38 INR 1.2 10/17/16 06:38 APTT 26 SECONDS (21-34) 10/17/16 06:38 Attending/Attestation - Attestation I have personally seen and examined this patient.: Yes I have fully participated in the care of the patient.: Yes I have reviewed all pertinent clinical information, including history, physical exam and plan: Yes Notes (Text): 10/19/16 09:55 Pt was seen and examined at bedside Agree with above note and assessment c/w current mx as per ICU team reg low fat diet OOB to walk DVT prophylaxis DC Malloy Plan d.w ICU team
[2016-10-19 09:36] LABS: GRANULAR CAST 3 /lpf (0-1); RBC URINE 3 /hpf (0-3); URINE BACTERIA RARE (<OCC); URINE BILIRUBIN NEGATIVE (NEGATIVE); URINE BLOOD 1+ (NEGATIVE); URINE COLOR Yellow (YELLOW); URINE GLUCOSE (UA) 3+ mg/dL (Normal); URINE KETONE 2+ mg/dL (NEGATIVE); URINE LEUKOCYTE ESTERASE NEG Leu/uL (Negative); URINE PROTEIN 2+ mg/dL (NEGATIVE); URINE UROBILINOGEN NORMAL mg/dL (0.2-1.0); WBC URINE 2 /hpf (0-5)
--- NOTE | 2016-10-19 17:25 | CP.PCM.PN ---
Subjective - Date & Time of Evaluation Date of Evaluation: 10/19/16 Time of Evaluation: 13:40 - Subjective Subjective: clinically same Objective - Vital Signs/Intake and Output Vital Signs (last 24 hours): Temp Pulse Resp BP Pulse Ox 98.1 F 93 H 21 163/96 H 93 L 10/19/16 12:00 10/19/16 13:54 10/19/16 13:54 10/19/16 13:54 10/19/16 13:54 Intake and Output: 10/19/16 10/19/16 06:59 18:59 Intake Total 2385 1527.5 Output Total 2460 1240 Balance -75 287.5 - Medications Medications: Current Medications Heparin Sodium (Porcine) (Heparin) 5,000 units SC Q8 [facility] Last Admin: 10/17/16 21:20 Dose: 5,000 units Hydromorphone HCl (Dilaudid) 0.5 mg IVP Q4H PRN PRN Reason: Pain, moderate (4-7) Last Admin: 10/19/16 17:03 Dose: 0.5 mg Metronidazole (Flagyl) 500 mg in 100 mls @ 100 mls/hr IVPB Q8 [facility] Last Admin: 10/19/16 13:44 Dose: 100 mls/hr Ciprofloxacin (Cipro 400mg/200ml Dsw) 400 mg in 200 mls @ 133 mls/hr IVPB Q12H [facility] Last Admin: 10/19/16 11:55 Dose: 133 mls/hr Sodium Chloride (Sodium Chloride 0.45%) 1,000 mls @ 125 mls/hr IV .Q8H [facility] Last Admin: 10/19/16 10:00 Dose: 125 mls/hr Insulin Human Regular (Novolin R) 0 unit SC Q6H [facility] PRN Reason: Protocol Last Admin: 10/19/16 12:07 Dose: 3 unit Ondansetron HCl (Zofran Inj) 4 mg IVP Q4H PRN PRN Reason: Nausea/Vomiting Last Admin: 10/19/16 06:00 Dose: 4 mg Pantoprazole Sodium (Protonix Inj) 40 mg IVP DAILY [facility] Last Admin: 10/19/16 11:15 Dose: 40 mg - Labs Labs: 10/19/16 06:34 10/19/16 06:34 PT 12.9 SECONDS (9.7-12.2) H 10/17/16 06:38 INR 1.2 10/17/16 06:38 APTT 26 SECONDS (21-34) 10/17/16 06:38
[2016-10-20] MEDS: Ciprofloxacin 400mg/200ml D5W 400 MG/200 ML BAG IVPB SCH ×2 (00:11→11:57)
[2016-10-20] MEDS: Sodium Chloride 0.45% 1,000 ML IV SCH ×4 (02:00→17:35)
[2016-10-20] MEDS: metroNIDAZOLE IV 500 mg/100 ml 500 MG/100 ML BAG IVPB SCH ×3 (06:05→21:00)
[2016-10-20] MEDS: (Novolin R) Insulin Human Regular 100 units/ml vial SC SCH ×4 (08:18→21:30)
[2016-10-20] MEDS ORDERED: Magnesium Hydroxide Susp 30 ml UD PO ONE (10:34)
--- NOTE | 2016-10-20 11:31 | CP.PCM.PN ---
Subjective - Date & Time of Evaluation Date of Evaluation: 10/20/16 Time of Evaluation: 08:40 - Subjective Subjective: clinically same Objective - Vital Signs/Intake and Output Vital Signs (last 24 hours): Temp Pulse Resp BP Pulse Ox 98.1 F 93 H 20 161/92 H 95 10/20/16 08:39 10/20/16 08:39 10/20/16 08:39 10/20/16 08:39 10/20/16 08:39 Intake and Output: 10/20/16 10/20/16 06:59 18:59 Intake Total 1575 Output Total 250 Balance 1325 - Medications Medications: Current Medications Docusate Sodium (Colace) 100 mg PO BID [facility] Heparin Sodium (Porcine) (Heparin) 5,000 units SC Q8 [facility] Last Admin: 10/17/16 21:20 Dose: 5,000 units Hydromorphone HCl (Dilaudid) 0.5 mg IVP Q4H PRN PRN Reason: Pain, moderate (4-7) Last Admin: 10/19/16 21:23 Dose: 0.5 mg Metronidazole (Flagyl) 500 mg in 100 mls @ 100 mls/hr IVPB Q8 [facility] Last Admin: 10/20/16 06:05 Dose: 100 mls/hr Ciprofloxacin (Cipro 400mg/200ml Dsw) 400 mg in 200 mls @ 133 mls/hr IVPB Q12H [facility] Last Admin: 10/20/16 00:11 Dose: 133 mls/hr Sodium Chloride (Sodium Chloride 0.45%) 1,000 mls @ 125 mls/hr IV .Q8H [facility] Last Admin: 10/20/16 09:49 Dose: Not Given Insulin Human Regular (Novolin R) 0 unit SC [facility] PRN Reason: Protocol Last Admin: 10/20/16 08:18 Dose: 1 unit Ondansetron HCl (Zofran Inj) 4 mg IVP Q4H PRN PRN Reason: Nausea/Vomiting Last Admin: 10/20/16 02:49 Dose: 4 mg Pantoprazole Sodium (Protonix Inj) 40 mg IVP DAILY [facility] Last Admin: 10/20/16 09:30 Dose: 40 mg - Labs Labs: 10/19/16 06:34 10/19/16 06:34 PT 12.9 SECONDS (9.7-12.2) H 10/17/16 06:38 INR 1.2 10/17/16 06:38 APTT 26 SECONDS (21-34) 10/17/16 06:38 - Constitutional Appears: Well - Head Exam Head Exam: ATRAUMATIC, NORMAL INSPECTION, NORMOCEPHALIC - Eye Exam Eye Exam: EOMI, Normal appearance, PERRL Pupil Exam: NORMAL ACCOMODATION, PERRL - ENT Exam ENT Exam: Mucous Membranes Moist, Normal Exam - Neck Exam Neck Exam: Full ROM, Normal Inspection. absent: Lymphadenopathy - Respiratory Exam Respiratory Exam: Decreased Breath Sounds - Cardiovascular Exam Cardiovascular Exam: REGULAR RHYTHM, +S1, +S2 - GI/Abdominal Exam GI & Abdominal Exam: Soft, Diminished Bowel Sounds - Rectal Exam Rectal Exam: Deferred
[2016-10-20] MEDS ORDERED: Oxycodone/Acetaminophen 5/325 mg Tab PO PRN (14:03)
--- NOTE | 2016-10-20 14:03 | CP.PCM.PN ---
<Tish Cordero - Last Filed: 10/20/16 14:00> Subjective - Date & Time of Evaluation Date of Evaluation: 10/20/16 Time of Evaluation: 14:00 - Subjective Subjective: Surgery Pt s&e. Pt reports N/V. Non bloody non bilious. Low appetite. C/O pain. Denies F /D. No BM. + void. Objective - Vital Signs/Intake and Output Vital Signs (last 24 hours): Temp Pulse Resp BP Pulse Ox 98.1 F 93 H 20 161/92 H 95 10/20/16 08:39 10/20/16 08:39 10/20/16 08:39 10/20/16 08:39 10/20/16 08:39 Intake and Output: 10/20/16 10/20/16 06:59 18:59 Intake Total 1575 Output Total 250 Balance 1325 - Medications Medications: Current Medications Bisacodyl (Dulcolax) 10 mg [place] ONCE ONE Stop: 10/20/16 13:54 Docusate Sodium (Colace) 100 mg PO BID [facility] Last Admin: 10/20/16 11:56 Dose: 100 mg Enoxaparin Sodium (Lovenox) 30 mg SC DAILY [facility] Heparin Sodium (Porcine) (Heparin) 5,000 units SC Q8 [facility] Last Admin: 10/17/16 21:20 Dose: 5,000 units Hydromorphone HCl (Dilaudid) 0.5 mg IVP Q4H PRN PRN Reason: Pain, moderate (4-7) Last Admin: 10/19/16 21:23 Dose: 0.5 mg Metronidazole (Flagyl) 500 mg in 100 mls @ 100 mls/hr IVPB Q8 [facility] Last Admin: 10/20/16 06:05 Dose: 100 mls/hr Ciprofloxacin (Cipro 400mg/200ml Dsw) 400 mg in 200 mls @ 133 mls/hr IVPB Q12H [facility] Last Admin: 10/20/16 11:57 Dose: 133 mls/hr Sodium Chloride (Sodium Chloride 0.45%) 1,000 mls @ 125 mls/hr IV .Q8H [facility] Last Admin: 10/20/16 09:49 Dose: Not Given Insulin Human Regular (Novolin R) 0 unit SC ACHS [facility] PRN Reason: Protocol Last Admin: 10/20/16 12:33 Dose: 3 unit Metoclopramide HCl (Reglan) 10 mg IVP DAILY@ONCE PRN PRN Reason: Nausea/Vomiting Ondansetron HCl (Zofran Inj) 4 mg IVP Q4H PRN PRN Reason: Nausea/Vomiting Last Admin: 10/20/16 02:49 Dose: 4 mg Pantoprazole Sodium (Protonix Inj) 40 mg IVP DAILY [facility] Last Admin: 10/20/16 09:30 Dose: 40 mg - Labs Labs: 10/19/16 06:34 10/19/16 06:34 PT 12.9 SECONDS (9.7-12.2) H 10/17/16 06:38 INR 1.2 10/17/16 06:38 APTT 26 SECONDS (21-34) 10/17/16 06:38 - Constitutional Appears: No Acute Distress - Head Exam Head Exam: ATRAUMATIC, NORMAL INSPECTION, NORMOCEPHALIC - Eye Exam Eye Exam: EOMI, Normal appearance, PERRL Pupil Exam: NORMAL ACCOMODATION, PERRL - ENT Exam ENT Exam: Mucous Membranes Moist, Normal Exam - Neck Exam Neck Exam: Full ROM, Normal Inspection. absent: Lymphadenopathy - Respiratory Exam Respiratory Exam: Clear to Ausculation Bilateral, NORMAL BREATHING PATTERN - Cardiovascular Exam Cardiovascular Exam: REGULAR RHYTHM, +S1, +S2. absent: Murmur - GI/Abdominal Exam GI & Abdominal Exam: Soft, Tenderness, Normal Bowel Sounds. absent: Distended, Firm, Guarding, Rigid Additional comments: RUQ TTP. Incision C/D/I. - Extremities Exam Extremities Exam: Full ROM, Normal Inspection - Back Exam Back Exam: NORMAL INSPECTION - Neurological Exam Neurological Exam: Alert, Awake, CN II-XII Intact, Normal Gait, Oriented x3 - Psychiatric Exam Psychiatric exam: Normal Affect, Normal Mood - Skin Skin Exam: Dry, Intact, Normal Color, Warm Assessment and Plan - Assessment and Plan (Free Text) Assessment: 51 year old female s/p robotic assisted lap cholecystectomy, POD#2. - Continue clear liquid diet; Will advance diet slowly to soft . - Continue antibiotics and pain control. -Nausea controll -OOB, ambulate, IS -Medical management DW attending <Casey Rivera - Last Filed: 10/21/16 11:43> Objective - Vital Signs/Intake and Output Vital Signs (last 24 hours): Temp Pulse Resp BP Pulse Ox 97.9 F 83 20 164/97 H 96 10/21/16 08:16 10/21/16 08:16 10/21/16 08:16 10/21/16 08:16 10/21/16 08:16 Intake and Output: 10/21/16 10/21/16 06:59 18:59 Intake Total 800 Output Total 5 Balance 795 - Medications Medications: Current Medications Amlodipine Besylate (Norvasc) 10 mg PO DAILY [facility] Docusate Sodium (Colace) 100 mg PO BID [facility] Last Admin: 10/21/16 09:42 Dose: 100 mg Enoxaparin Sodium (Lovenox) 30 mg SC DAILY [facility] Last Admin: 10/21/16 09:42 Dose: 30 mg Heparin Sodium (Porcine) (Heparin) 5,000 units SC Q8 [facility] Last Admin: 10/17/16 21:20 Dose: 5,000 units Hydromorphone HCl (Dilaudid) 0.5 mg IVP Q4H PRN PRN Reason: Pain, moderate (4-7) Last Admin: 10/19/16 21:23 Dose: 0.5 mg Metronidazole (Flagyl) 500 mg in 100 mls @ 100 mls/hr IVPB Q8 [facility] Last Admin: 10/21/16 05:12 Dose: 100 mls/hr Ciprofloxacin (Cipro 400mg/200ml Dsw) 400 mg in 200 mls @ 133 mls/hr IVPB Q12H [facility] Last Admin: 10/21/16 00:09 Dose: 133 mls/hr Insulin Human Regular (Novolin R) 0 unit SC ACHS [facility] PRN Reason: Protocol Last Admin: 10/21/16 07:30 Dose: 3 unit Metoclopramide HCl (Reglan) 10 mg IVP DAILY@ONCE PRN PRN Reason: Nausea/Vomiting Ondansetron HCl (Zofran Inj) 4 mg IVP Q4H PRN PRN Reason: Nausea/Vomiting Last Admin: 10/20/16 02:49 Dose: 4 mg Oxycodone/Acetaminophen (Percocet 5/325 Mg Tab) 2 tab PO Q4H PRN PRN Reason: Pain, moderate (4-7) Stop: 10/23/16 14:04 Pantoprazole Sodium (Protonix Inj) 40 mg IVP DAILY [facility] Last Admin: 10/21/16 09:42 Dose: 40 mg - Labs Labs: 10/21/16 06:59 10/21/16 06:59 PT 12.9 SECONDS (9.7-12.2) H 10/17/16 06:38 INR 1.2 10/17/16 06:38 APTT 26 SECONDS (21-34) 10/17/16 06:38 Attending/Attestation - Attestation I have personally seen and examined this patient.: Yes I have fully participated in the care of the patient.: Yes I have reviewed all pertinent clinical information, including history, physical exam and plan: Yes Notes (Text): 10/21/16 11:43 Pt was seen and examined at bedside Agree with above note and assessment. DC plan.
[2016-10-20] MEDS: Enoxaparin 30 mg Syringe SC SCH (14:16)
[2016-10-20 14:30] LABS: BASO % 0.4 % (0.0-2.0); EOS % 0.2 % (0.0-4.0); HEMATOCRIT 39.9 % (34.0-47.0); LYMPH # 4.1 K/uL (1.0-4.3); LYMPH % 33.8 % (20.0-40.0); MEAN CELL VOLUME 87.4 fL (81.0-99.0); MONO # 1.2 K/uL (0.0-0.8); RED CELL DISTRIBUTION WIDTH 13.9 % (11.5-14.5); WHITE BLOOD COUNT 12.1 K/uL (4.8-10.8)
[2016-10-20 14:43] LABS: CHLORIDE 103 mmol/L (98-107); POTASSIUM 3.1 mmol/L (3.6-5.2); SODIUM 136 mmol/L (132-148)
[2016-10-20 14:45] LABS: CARBON DIOXIDE 17 mmol/L (22-30); GFR AFRICAN-AMERICAN > 60
[2016-10-20 14:46] LABS: ALKALINE PHOSPHATASE 272 U/L (38-126); ALT/SGPT 343 U/L (9-52); AST/SGOT 80 U/L (14-36); BLOOD UREA NITROGEN 9 mg/dL (7-17); CALCIUM 8.9 mg/dl (8.6-10.4); GLUCOSE,RANDOM 266 mg/dL (65-105); PHOSPHOROUS 1.7 mg/dL (2.5-4.5); TOTAL PROTEIN 6.9 g/dL (6.3-8.3)
[2016-10-20] MEDS ORDERED: Potassium Chloride 20 mEq ER Tab PO ONE (15:30)
[2016-10-20] MEDS ORDERED: Potassium Phosphate 30 MMOLE in Sodium Chloride 0.9% 500 ML IVPB ONE (16:00)
[2016-10-21] MEDS: Ciprofloxacin 400mg/200ml D5W 400 MG/200 ML BAG IVPB SCH ×2 (00:09→12:03)
[2016-10-21] MEDS: metroNIDAZOLE IV 500 mg/100 ml 500 MG/100 ML BAG IVPB SCH ×3 (05:12→22:02)
[2016-10-21 07:06] LABS: BASO % 0.4 % (0.0-2.0); EOS # 0.1 K/uL (0.0-0.7); EOS % 0.5 % (0.0-4.0); HEMATOCRIT 37.4 % (34.0-47.0); LYMPH # 4.3 K/uL (1.0-4.3); LYMPH % 34.8 % (20.0-40.0); MEAN CELL VOLUME 86.1 fL (81.0-99.0); MEAN CORPUSCULAR HEMOGLOBIN 28.6 pg (27.0-31.0); MEAN CORPUSCULAR HGB CONC 33.3 g/dL (33.0-37.0); MONO # 1.2 K/uL (0.0-0.8); MONO % 9.7 % (0.0-10.0); NRBC % 0.1 % (0.0-2.0); WHITE BLOOD COUNT 12.2 K/uL (4.8-10.8)
[2016-10-21 07:27] LABS: ALKALINE PHOSPHATASE 231 U/L (38-126); ALT/SGPT 240 U/L (9-52); AST/SGOT 47 U/L (14-36); BILIRUBIN,TOTAL 1.2 mg/dL (0.2-1.3); BLOOD UREA NITROGEN 9 mg/dL (7-17); CARBON DIOXIDE 18 mmol/L (22-30); CHLORIDE 101 mmol/L (98-107); GFR AFRICAN-AMERICAN > 60; GLUCOSE,RANDOM 259 mg/dL (65-105); PHOSPHOROUS 2.3 mg/dL (2.5-4.5); POTASSIUM 3.3 mmol/L (3.6-5.2); SODIUM 134 mmol/L (132-148); TOTAL PROTEIN 6.3 g/dL (6.3-8.3)
[2016-10-21] MEDS: (Novolin R) Insulin Human Regular 100 units/ml vial SC SCH ×4 (07:30→22:02)
[2016-10-21] MEDS: Enoxaparin 30 mg Syringe SC SCH (09:42)
[2016-10-21] MEDS ORDERED: Potassium Chloride 20 mEq ER Tab PO ONE ×2 (10:59→12:00)
--- NOTE | 2016-10-21 11:34 | CP.PCM.PN ---
Subjective - Date & Time of Evaluation Date of Evaluation: 10/21/16 Time of Evaluation: 06:40 - Subjective Subjective: General Surgery- Dr. Rivera Pt S&E at bedside this AM. No acute events overnight. States she is doing much better. tolerating diet, pain is manageable, +OOB, dressing C/D/I Objective - Vital Signs/Intake and Output Vital Signs (last 24 hours): Temp Pulse Resp BP Pulse Ox 97.9 F 83 20 164/97 H 96 10/21/16 08:16 10/21/16 08:16 10/21/16 08:16 10/21/16 08:16 10/21/16 08:16 Intake and Output: 10/21/16 10/21/16 06:59 18:59 Intake Total 800 Output Total 5 Balance 795 - Medications Medications: Current Medications Docusate Sodium (Colace) 100 mg PO BID [facility] Last Admin: 10/21/16 09:42 Dose: 100 mg Enoxaparin Sodium (Lovenox) 30 mg SC DAILY [facility] Last Admin: 10/21/16 09:42 Dose: 30 mg Heparin Sodium (Porcine) (Heparin) 5,000 units SC Q8 [facility] Last Admin: 10/17/16 21:20 Dose: 5,000 units Hydromorphone HCl (Dilaudid) 0.5 mg IVP Q4H PRN PRN Reason: Pain, moderate (4-7) Last Admin: 10/19/16 21:23 Dose: 0.5 mg Metronidazole (Flagyl) 500 mg in 100 mls @ 100 mls/hr IVPB Q8 [facility] Last Admin: 10/21/16 05:12 Dose: 100 mls/hr Ciprofloxacin (Cipro 400mg/200ml Dsw) 400 mg in 200 mls @ 133 mls/hr IVPB Q12H [facility] Last Admin: 10/21/16 00:09 Dose: 133 mls/hr Insulin Human Regular (Novolin R) 0 unit SC ACHS [facility] PRN Reason: Protocol Last Admin: 10/21/16 07:30 Dose: 3 unit Metoclopramide HCl (Reglan) 10 mg IVP DAILY@ONCE PRN PRN Reason: Nausea/Vomiting Ondansetron HCl (Zofran Inj) 4 mg IVP Q4H PRN PRN Reason: Nausea/Vomiting Last Admin: 10/20/16 02:49 Dose: 4 mg Oxycodone/Acetaminophen (Percocet 5/325 Mg Tab) 2 tab PO Q4H PRN PRN Reason: Pain, moderate (4-7) Stop: 10/23/16 14:04 Pantoprazole Sodium (Protonix Inj) 40 mg IVP DAILY [facility] Last Admin: 10/21/16 09:42 Dose: 40 mg - Labs Labs: 10/21/16 06:59 10/21/16 06:59 PT 12.9 SECONDS (9.7-12.2) H 10/17/16 06:38 INR 1.2 10/17/16 06:38 APTT 26 SECONDS (21-34) 10/17/16 06:38 - Constitutional Appears: No Acute Distress - Eye Exam Eye Exam: EOMI - ENT Exam ENT Exam: Mucous Membranes Moist - Respiratory Exam Respiratory Exam: NORMAL BREATHING PATTERN. absent: Accessory Muscle Use, Rales , Rhonchi - Cardiovascular Exam Cardiovascular Exam: +S1, +S2 - GI/Abdominal Exam GI & Abdominal Exam: Soft, Tenderness, Normal Bowel Sounds. absent: Distended, Rigid Additional comments: appropriately tender around incision - Neurological Exam Neurological Exam: Alert, Awake, Oriented x3 - Psychiatric Exam Psychiatric exam: Normal Affect, Normal Mood - Skin Skin Exam: Normal Color, Warm Assessment and Plan - Assessment and Plan (Free Text) Assessment: 51F s/p robotic assisted lap cholecystectomy, POD#3. Plan: - pain control. -OOB, ambulate, IS - Pt is cleared for discharge from surgical standpoint - further recs per Dr. Nicole Hanson PGY1
--- NOTE | 2016-10-21 14:15 | CP.PCM.PN ---
Subjective - Date & Time of Evaluation Date of Evaluation: 10/21/16 Time of Evaluation: 09:00 - Subjective Subjective: clinically same Objective - Vital Signs/Intake and Output Vital Signs (last 24 hours): Temp Pulse Resp BP Pulse Ox 97.9 F 83 20 164/97 H 96 10/21/16 08:16 10/21/16 08:16 10/21/16 08:16 10/21/16 08:16 10/21/16 08:16 Intake and Output: 10/21/16 10/21/16 06:59 18:59 Intake Total 800 Output Total 5 Balance 795 - Medications Medications: Current Medications Amlodipine Besylate (Norvasc) 10 mg PO DAILY [facility] Last Admin: 10/21/16 12:02 Dose: 10 mg Docusate Sodium (Colace) 100 mg PO BID [facility] Last Admin: 10/21/16 09:42 Dose: 100 mg Enoxaparin Sodium (Lovenox) 30 mg SC DAILY [facility] Last Admin: 10/21/16 09:42 Dose: 30 mg Heparin Sodium (Porcine) (Heparin) 5,000 units SC Q8 [facility] Last Admin: 10/17/16 21:20 Dose: 5,000 units Hydromorphone HCl (Dilaudid) 0.5 mg IVP Q4H PRN PRN Reason: Pain, moderate (4-7) Last Admin: 10/19/16 21:23 Dose: 0.5 mg Metronidazole (Flagyl) 500 mg in 100 mls @ 100 mls/hr IVPB Q8 [facility] Last Admin: 10/21/16 13:59 Dose: 100 mls/hr Ciprofloxacin (Cipro 400mg/200ml Dsw) 400 mg in 200 mls @ 133 mls/hr IVPB Q12H [facility] Last Admin: 10/21/16 12:03 Dose: 133 mls/hr Insulin Human Regular (Novolin R) 0 unit [place] ACHS [facility] PRN Reason: Protocol Last Admin: 10/21/16 12:04 Dose: 4 unit Metoclopramide HCl (Reglan) 10 mg IVP DAILY@ONCE PRN PRN Reason: Nausea/Vomiting Ondansetron HCl (Zofran Inj) 4 mg IVP Q4H PRN PRN Reason: Nausea/Vomiting Last Admin: 10/20/16 02:49 Dose: 4 mg Oxycodone/Acetaminophen (Percocet 5/325 Mg Tab) 2 tab PO Q4H PRN PRN Reason: Pain, moderate (4-7) Stop: 10/23/16 14:04 Pantoprazole Sodium (Protonix Inj) 40 mg IVP DAILY [facility] Last Admin: 10/21/16 09:42 Dose: 40 mg - Labs Labs: 10/21/16 06:59 10/21/16 06:59 PT 12.9 SECONDS (9.7-12.2) H 10/17/16 06:38 INR 1.2 10/17/16 06:38 APTT 26 SECONDS (21-34) 10/17/16 06:38 - Constitutional Appears: Well - Head Exam Head Exam: ATRAUMATIC, NORMAL INSPECTION, NORMOCEPHALIC - Eye Exam Eye Exam: EOMI, Normal appearance, PERRL - ENT Exam ENT Exam: Mucous Membranes Moist, Normal Exam - Neck Exam Neck Exam: Full ROM, Normal Inspection. absent: Lymphadenopathy - Respiratory Exam Respiratory Exam: Decreased Breath Sounds - Cardiovascular Exam Cardiovascular Exam: REGULAR RHYTHM, +S1, +S2. absent: Murmur - GI/Abdominal Exam GI & Abdominal Exam: Diminished Bowel Sounds - Rectal Exam Rectal Exam: Deferred
[2016-10-21] MEDS ORDERED: Potassium Chloride 20 mEq/15 ml LIQ UD PO ONE (15:30)
[2016-10-22] MEDS: metroNIDAZOLE IV 500 mg/100 ml 500 MG/100 ML BAG IVPB SCH ×3 (05:25→21:20)
[2016-10-22 08:19] LABS: BASO # 0.1 K/uL (0.0-0.2); BASO % 0.5 % (0.0-2.0); EOS # 0.1 K/uL (0.0-0.7); EOS % 0.7 % (0.0-4.0); HEMATOCRIT 36.5 % (34.0-47.0); LYMPH # 5.2 K/uL (1.0-4.3); LYMPH % 40.4 % (20.0-40.0); MEAN CELL VOLUME 85.4 fL (81.0-99.0); MEAN CORPUSCULAR HEMOGLOBIN 28.7 pg (27.0-31.0); MEAN CORPUSCULAR HGB CONC 33.6 g/dL (33.0-37.0); MEAN PLATELET VOLUME 8.8 fL (7.2-11.7); MONO # 1.3 K/uL (0.0-0.8); RED CELL DISTRIBUTION WIDTH 13.8 % (11.5-14.5); WHITE BLOOD COUNT 12.9 K/uL (4.8-10.8)
[2016-10-22] MEDS: (Novolin R) Insulin Human Regular 100 units/ml vial SC SCH ×3 (08:30→21:37)
[2016-10-22 08:39] LABS: ALKALINE PHOSPHATASE 206 U/L (38-126); ALT/SGPT 170 U/L (9-52); AST/SGOT 41 U/L (14-36); BILIRUBIN,TOTAL 1.1 mg/dL (0.2-1.3); BLOOD UREA NITROGEN 8 mg/dL (7-17); CALCIUM 8.9 mg/dl (8.6-10.4); CARBON DIOXIDE 21 mmol/L (22-30); CHLORIDE 98 mmol/L (98-107); GFR AFRICAN-AMERICAN > 60; GLUCOSE,RANDOM 261 mg/dL (65-105); MAGNESIUM 1.9 mg/dL (1.6-2.3); PHOSPHOROUS 2.9 mg/dL (2.5-4.5); POTASSIUM 3.3 mmol/L (3.6-5.2); SODIUM 134 mmol/L (132-148); TOTAL PROTEIN 6.3 g/dL (6.3-8.3)
[2016-10-22] MEDS: Enoxaparin 30 mg Syringe SC SCH (09:50)
[2016-10-22] MEDS: Ciprofloxacin 400mg/200ml D5W 400 MG/200 ML BAG IVPB SCH ×2 (12:00)
--- NOTE | 2016-10-22 13:53 | CP.PCM.PN ---
Subjective - Date & Time of Evaluation Date of Evaluation: 10/22/16 Time of Evaluation: 09:00 - Subjective Subjective: clinically same Objective - Vital Signs/Intake and Output Vital Signs (last 24 hours): Temp Pulse Resp BP Pulse Ox 98.5 F 86 20 159/89 H 96 10/22/16 08:00 10/22/16 08:00 10/22/16 08:00 10/22/16 08:00 10/22/16 08:00 Intake and Output: 10/22/16 10/22/16 06:59 18:59 Intake Total 550 Output Total 3 Balance 547 - Medications Medications: Current Medications Amlodipine Besylate (Norvasc) 10 mg PO DAILY [facility] Last Admin: 10/22/16 09:49 Dose: 10 mg Docusate Sodium (Colace) 100 mg PO BID [facility] Last Admin: 10/22/16 09:49 Dose: 100 mg Enoxaparin Sodium (Lovenox) 30 mg SC DAILY [facility] Last Admin: 10/22/16 09:50 Dose: 30 mg Heparin Sodium (Porcine) (Heparin) 5,000 units SC Q8 [facility] Last Admin: 10/17/16 21:20 Dose: 5,000 units Hydromorphone HCl (Dilaudid) 0.5 mg IVP Q4H PRN PRN Reason: Pain, moderate (4-7) Last Admin: 10/19/16 21:23 Dose: 0.5 mg Metronidazole (Flagyl) 500 mg in 100 mls @ 100 mls/hr IVPB Q8 [facility] Last Admin: 10/22/16 05:25 Dose: 100 mls/hr Insulin Human Regular (Novolin R) 0 unit SC ACHS [facility] PRN Reason: Protocol Last Admin: 10/22/16 08:30 Dose: 3 unit Metoclopramide HCl (Reglan) 10 mg IVP DAILY@ONCE PRN PRN Reason: Nausea/Vomiting Ondansetron HCl (Zofran Inj) 4 mg IVP Q4H PRN PRN Reason: Nausea/Vomiting Last Admin: 10/20/16 02:49 Dose: 4 mg Oxycodone/Acetaminophen (Percocet 5/325 Mg Tab) 2 tab PO Q4H PRN PRN Reason: Pain, moderate (4-7) Stop: 10/23/16 14:04 Pantoprazole Sodium (Protonix Inj) 40 mg IVP DAILY [facility] Last Admin: 10/22/16 09:50 Dose: 40 mg - Labs Labs: 10/22/16 08:05 10/22/16 08:05 PT 12.9 SECONDS (9.7-12.2) H 10/17/16 06:38 INR 1.2 10/17/16 06:38 APTT 26 SECONDS (21-34) 10/17/16 06:38 - Constitutional Appears: Well - Head Exam Head Exam: ATRAUMATIC - Eye Exam Eye Exam: EOMI, Normal appearance, PERRL - ENT Exam ENT Exam: Mucous Membranes Moist, Normal Exam - Neck Exam Neck Exam: Full ROM, Normal Inspection. absent: Lymphadenopathy - Respiratory Exam Respiratory Exam: Decreased Breath Sounds - Cardiovascular Exam Cardiovascular Exam: REGULAR RHYTHM, +S1, +S2. absent: Murmur - GI/Abdominal Exam GI & Abdominal Exam: Diminished Bowel Sounds - Rectal Exam Rectal Exam: Deferred
[2016-10-22] MEDS: Potassium Chloride 20 mEq ER Tab PO SCH ×2 (16:15→20:06)
[2016-10-22] MEDS ORDERED: (Novolin R) Insulin Human Regular 100 units/ml vial SC ONE (21:28)
[2016-10-23] MEDS: metroNIDAZOLE IV 500 mg/100 ml 500 MG/100 ML BAG IVPB SCH ×3 (05:23→21:32)
[2016-10-23] MEDS: (Novolin R) Insulin Human Regular 100 units/ml vial SC SCH ×5 (08:30→21:30)
[2016-10-23] MEDS: Enoxaparin 30 mg Syringe SC SCH (10:14)
--- NOTE | 2016-10-23 13:25 | CP.PCM.CON ---
<Jolanta Lira - Last Filed: 10/23/16 13:27> History of Present Illness - History of Present Illness History of Present Illness: GI Fellow PGY4 Consult Note This is a 51 year old female with history of DM, HTN, who presents to hospital with complaints of sudden onset abdominal pain which began 2 days [employer]. Prior to this she was in usual state of health. She describes a severe RUQ 10/10 intensity pain that is worse following meal consumption and movement. The pain at times radiates to back and is associated with nausea. She denies fever/ chills, weight loss, rectal bleeding, or change in bowel habits. No prior endoscopic evaluation. Pt was found to have choledocholithiasis and underwent ERCP with plastic stent placement on 10/17. Pt is also s/p lap cholecystectomy. ROS: A 12pt ROS was obtained and was negative except as above PmHx; As stated in HPI PsHx: None SHx: non-smoker, no ETOH use FHx: reviewed, patient denies history of colon cancer Past Patient History - Past Medical History & Family History Past Medical History?: Yes - Past Social History Smoking Status: Never Smoked - CARDIAC Hx Hypertension: Yes - ENDOCRINE/METABOLIC Hx Diabetes Mellitus Type 2: Yes - MUSCULOSKELETAL/RHEUMATOLOGICAL Hx Falls: No - GENITOURINARY/GYNECOLOGICAL Hx Genitourinary Disorders: Yes - PSYCHIATRIC Hx Substance Use: No - SURGICAL HISTORY Hx Surgeries: No - ANESTHESIA Hx Anesthesia: No Meds Allergies/Adverse Reactions: Allergies Allergy/AdvReac Type Severity Reaction Status Date / Time Penicillins Allergy Verified 10/16/16 09:46 - Medications Medications: Current Medications Amlodipine Besylate (Norvasc) 10 mg PO DAILY [facility] Last Admin: 10/23/16 10:20 Dose: 10 mg Docusate Sodium (Colace) 100 mg PO BID [facility] Last Admin: 10/23/16 11:15 Dose: Not Given Enoxaparin Sodium (Lovenox) 30 mg SC DAILY [facility] Last Admin: 10/23/16 10:14 Dose: 30 mg Heparin Sodium (Porcine) (Heparin) 5,000 units SC Q8 [facility] Last Admin: 10/17/16 21:20 Dose: 5,000 units Metronidazole (Flagyl) 500 mg in 100 mls @ 100 mls/hr IVPB Q8 [facility] Last Admin: 10/23/16 05:23 Dose: 100 mls/hr Insulin Human Regular (Novolin R) 0 unit SC ACHS [facility] PRN Reason: Protocol Last Admin: 10/23/16 11:23 Dose: 6 unit Metoclopramide HCl (Reglan) 10 mg IVP DAILY@ONCE PRN PRN Reason: Nausea/Vomiting Last Admin: 10/23/16 10:16 Dose: 10 mg Ondansetron HCl (Zofran Inj) 4 mg IVP Q4H PRN PRN Reason: Nausea/Vomiting Last Admin: 10/20/16 02:49 Dose: 4 mg Oxycodone/Acetaminophen (Percocet 5/325 Mg Tab) 2 tab PO Q4H PRN PRN Reason: Pain, moderate (4-7) Stop: 10/23/16 14:04 Pantoprazole Sodium (Protonix Inj) 40 mg IVP DAILY [facility] Last Admin: 10/23/16 10:16 Dose: 40 mg Physical Exam - Constitutional Appears: Well, Non-toxic, No Acute Distress - Head Exam Head Exam: ATRAUMATIC, NORMAL INSPECTION, NORMOCEPHALIC - Eye Exam Eye Exam: EOMI, Normal appearance, PERRL Pupil Exam: PERRL - ENT Exam ENT Exam: Mucous Membranes Moist - Respiratory Exam Respiratory Exam: Clear to Auscultation Bilateral, NORMAL BREATHING PATTERN - Cardiovascular Exam Cardiovascular Exam: RRR, +S1, +S2 - GI/Abdominal Exam GI & Abdominal Exam: Normal Bowel Sounds, Soft. absent: Distended, Firm, Guarding - Rectal Exam Rectal Exam: Deferred - Extremities Exam Extremities exam: Positive for: full ROM, normal inspection - Back Exam Back exam: NORMAL INSPECTION - Neurological Exam Neurological exam: Alert, Oriented x3 - Psychiatric Exam Psychiatric exam: Normal Affect, Normal Mood - Skin Skin Exam: Dry, Intact, Normal Color, Warm Results - Vital Signs Recent Vital Signs: Last Vital Signs Temp 98.2 F 10/23/16 07:30 Pulse 83 10/23/16 07:30 Resp 83 H 10/23/16 07:30 BP 130/78 10/23/16 10:22 Pulse Ox 95 10/23/16 07:30 - Labs Result Diagrams: 10/22/16 08:05 10/22/16 08:05 Labs: Laboratory Results - last 24 hr 10/22/16 10/22/16 10/23/16 16:14 21:11 07:30 POC Glucose (mg/dL) 351 H 449 H* 235 H 10/23/16 11:04 POC Glucose (mg/dL) 440 H* Assessment & Plan - Assessment and Plan (Free Text) Assessment: This is a 51F w/ hx of who presented rith RUQ and anion gap met acidosis. Etiology of the RUQ pain is likely 2/2 cholecystitis. Pt also has concurrent elevated in LFTs including direct janes and alk phos, though MRCP revealed a distal CBD stone, s/p ERCP and stenting. 1. Abdominal pain, acute cholecystitis s/p cholecystectomy 2. Transaminitis, choledocholithiasis s/p ERCP with stent placement Plan: - LFTs downtrending, order hepatitis panel - Patient will require repeat ERCP with stent removal in 2 months, to be arranged as outpatient with Dr. Pinto - Kenny gutierrez for discharge home from GI perspective and to followup outpt. <Jaime [place]ORD,[place] - Last Filed: 10/23/16 13:33> Meds - Medications Medications: Current Medications Amlodipine Besylate (Norvasc) 10 mg PO DAILY [facility] Last Admin: 10/23/16 10:20 Dose: 10 mg Docusate Sodium (Colace) 100 mg PO BID [facility] Last Admin: 10/23/16 11:15 Dose: Not Given Enoxaparin Sodium (Lovenox) 30 mg SC DAILY [facility] Last Admin: 10/23/16 10:14 Dose: 30 mg Heparin Sodium (Porcine) (Heparin) 5,000 units SC Q8 [facility] Last Admin: 10/17/16 21:20 Dose: 5,000 units Metronidazole (Flagyl) 500 mg in 100 mls @ 100 mls/hr IVPB Q8 [facility] Last Admin: 10/23/16 05:23 Dose: 100 mls/hr Insulin Human Regular (Novolin R) 0 unit SC ACHS [facility] PRN Reason: Protocol Last Admin: 10/23/16 11:23 Dose: 6 unit Metoclopramide HCl (Reglan) 10 mg IVP DAILY@ONCE PRN PRN Reason: Nausea/Vomiting Last Admin: 10/23/16 10:16 Dose: 10 mg Ondansetron HCl (Zofran Inj) 4 mg IVP Q4H PRN PRN Reason: Nausea/Vomiting Last Admin: 10/20/16 02:49 Dose: 4 mg Oxycodone/Acetaminophen (Percocet 5/325 Mg Tab) 2 tab PO Q4H PRN PRN Reason: Pain, moderate (4-7) Stop: 10/23/16 14:04 Pantoprazole Sodium (Protonix Inj) 40 mg IVP DAILY [facility] Last Admin: 10/23/16 10:16 Dose: 40 mg Results - Vital Signs Recent Vital Signs: Last Vital Signs Temp 98.2 F 10/23/16 07:30 Pulse 83 10/23/16 07:30 Resp 83 H 10/23/16 07:30 BP 130/78 10/23/16 10:22 Pulse Ox 95 10/23/16 07:30 - Labs Result Diagrams: 10/22/16 08:05 10/22/16 08:05 Labs: Laboratory Results - last 24 hr 10/22/16 10/22/16 10/23/16 16:14 21:11 07:30 POC Glucose (mg/dL) 351 H 449 H* 235 H 10/23/16 11:04 POC Glucose (mg/dL) 440 H* Attending/Attestation - Attestation I have personally seen and examined this patient.: Yes I have fully participated in the care of the patient.: Yes I have reviewed all pertinent clinical information: Yes Notes (Text): 10/23/16 13:32 I have seen and examined patient with GI fellow. No acute events overnight, she is s/p cholecystectomy and s/p ERCP with stent placement. Pain control. LFT downtrending. Requires stent removal with Dr Pinto in two months. Cleared for discharge.
--- NOTE | 2016-10-23 18:22 | CP.PCM.PN ---
Subjective - Date & Time of Evaluation Date of Evaluation: 10/23/16 Time of Evaluation: 08:20 - Subjective Subjective: clinically same Objective - Vital Signs/Intake and Output Vital Signs (last 24 hours): Temp Pulse Resp BP Pulse Ox 97.5 F L 88 20 147/88 95 10/23/16 15:54 10/23/16 15:54 10/23/16 15:54 10/23/16 15:54 10/23/16 15:54 Intake and Output: 10/23/16 10/23/16 06:59 18:59 Intake Total 500 100 Output Total 3 3 Balance 497 97 - Medications Medications: Current Medications Amlodipine Besylate (Norvasc) 10 mg PO DAILY [facility] Last Admin: 10/23/16 10:20 Dose: 10 mg Docusate Sodium (Colace) 100 mg PO BID [facility] Last Admin: 10/23/16 17:41 Dose: 100 mg Enoxaparin Sodium (Lovenox) 30 mg SC DAILY [facility] Last Admin: 10/23/16 10:14 Dose: 30 mg Heparin Sodium (Porcine) (Heparin) 5,000 units SC Q8 [facility] Last Admin: 10/17/16 21:20 Dose: 5,000 units Metronidazole (Flagyl) 500 mg in 100 mls @ 100 mls/hr IVPB Q8 [facility] Last Admin: 10/23/16 14:02 Dose: 100 mls/hr Insulin Human Regular (Novolin R) 0 unit SC ACHS [facility] PRN Reason: Protocol Last Admin: 10/23/16 16:48 Dose: 6 unit Metoclopramide HCl (Reglan) 10 mg IVP DAILY@ONCE PRN PRN Reason: Nausea/Vomiting Last Admin: 10/23/16 10:16 Dose: 10 mg Ondansetron HCl (Zofran Inj) 4 mg IVP Q4H PRN PRN Reason: Nausea/Vomiting Last Admin: 10/20/16 02:49 Dose: 4 mg Pantoprazole Sodium (Protonix Inj) 40 mg IVP DAILY [facility] Last Admin: 10/23/16 10:16 Dose: 40 mg - Labs Labs: 10/22/16 08:05 10/22/16 08:05 PT 12.9 SECONDS (9.7-12.2) H 10/17/16 06:38 INR 1.2 10/17/16 06:38 APTT 26 SECONDS (21-34) 10/17/16 06:38 - Constitutional Appears: Well - Head Exam Head Exam: ATRAUMATIC, NORMAL INSPECTION, NORMOCEPHALIC - Eye Exam Eye Exam: EOMI, Normal appearance, PERRL Pupil Exam: NORMAL ACCOMODATION, PERRL - ENT Exam ENT Exam: Mucous Membranes Moist, Normal Exam - Neck Exam Neck Exam: Full ROM, Normal Inspection. absent: Lymphadenopathy - Respiratory Exam Respiratory Exam: Decreased Breath Sounds - Cardiovascular Exam Cardiovascular Exam: REGULAR RHYTHM, +S1, +S2 - GI/Abdominal Exam GI & Abdominal Exam: Soft, Diminished Bowel Sounds - Rectal Exam Rectal Exam: Deferred
[2016-10-24] MEDS: metroNIDAZOLE IV 500 mg/100 ml 500 MG/100 ML BAG IVPB SCH ×2 (05:30→13:41)
[2016-10-24 07:56] VITALS: RESP 20
[2016-10-24] MEDS: (Novolin R) Insulin Human Regular 100 units/ml vial SC SCH ×2 (08:26→12:04)
[2016-10-24] MEDS: Enoxaparin 30 mg Syringe SC SCH (12:03)
--- NOTE | 2016-10-24 13:01 | CP.PCM.PN ---
Subjective - Date & Time of Evaluation Date of Evaluation: 10/24/16 Time of Evaluation: 12:45 - Subjective Subjective: patient seen an d examined today, denies any abdominal pain, N/V/D, fever, chills a febrile Objective - Vital Signs/Intake and Output Vital Signs (last 24 hours): Temp Pulse Resp BP Pulse Ox 98.4 F 95 H 20 145/85 98 10/24/16 07:54 10/24/16 10:45 10/24/16 07:54 10/24/16 10:45 10/24/16 10:45 Intake and Output: 10/24/16 10/24/16 06:59 18:59 Intake Total 800 Output Total 10 Balance 790 - Medications Medications: Current Medications Amlodipine Besylate (Norvasc) 10 mg PO DAILY [facility] Last Admin: 10/24/16 09:53 Dose: 10 mg Docusate Sodium (Colace) 100 mg PO BID [facility] Last Admin: 10/24/16 09:53 Dose: 100 mg Enoxaparin Sodium (Lovenox) 30 mg SC DAILY [facility] Last Admin: 10/24/16 12:03 Dose: Not Given Heparin Sodium (Porcine) (Heparin) 5,000 units SC Q8 [facility] Last Admin: 10/17/16 21:20 Dose: 5,000 units Metronidazole (Flagyl) 500 mg in 100 mls @ 100 mls/hr IVPB Q8 [facility] Last Admin: 10/24/16 05:30 Dose: 100 mls/hr Insulin Human Regular (Novolin R) 0 unit SC ACHS [facility] PRN Reason: Protocol Last Admin: 10/24/16 12:04 Dose: 3 unit Metoclopramide HCl (Reglan) 10 mg IVP DAILY@ONCE PRN PRN Reason: Nausea/Vomiting Last Admin: 10/23/16 10:16 Dose: 10 mg Ondansetron HCl (Zofran Inj) 4 mg IVP Q4H PRN PRN Reason: Nausea/Vomiting Last Admin: 10/20/16 02:49 Dose: 4 mg Pantoprazole Sodium (Protonix Inj) 40 mg IVP DAILY [facility] Last Admin: 10/24/16 09:53 Dose: 40 mg - Labs Labs: 10/22/16 08:05 10/22/16 08:05 PT 12.9 SECONDS (9.7-12.2) H 10/17/16 06:38 INR 1.2 10/17/16 06:38 APTT 26 SECONDS (21-34) 10/17/16 06:38 Assessment and Plan - Assessment and Plan (Free Text) Assessment: A/P 53 yr old female admitted for abdominal pain, DKA, Cholecystitis, Abnormal LFTs s/p robotic assisted lap cholecystectomy, POD#6 s/p ERCP with stent seen by surgical team ,cleared for discharge home otsy and f/u with Dr. Roberto office Discharge plan discussed with patient , who understands and agree with plan Patient needs to f/u with Dr. Roberto off ice and DR. Nichols office
[2016-10-24 13:58] LABS: BASO # 0.1 K/uL (0.0-0.2); BASO % 0.5 % (0.0-2.0); EOS # 0.1 K/uL (0.0-0.7); EOS % 0.7 % (0.0-4.0); HEMATOCRIT 39.7 % (34.0-47.0); LYMPH # 6.2 K/uL (1.0-4.3); LYMPH % 42.8 % (20.0-40.0); MEAN CELL VOLUME 87.2 fL (81.0-99.0); MEAN CORPUSCULAR HEMOGLOBIN 28.5 pg (27.0-31.0); MEAN CORPUSCULAR HGB CONC 32.7 g/dL (33.0-37.0); MEAN PLATELET VOLUME 9.2 fL (7.2-11.7); MONO # 1.2 K/uL (0.0-0.8); MONO % 8.6 % (0.0-10.0); RED CELL DISTRIBUTION WIDTH 14.1 % (11.5-14.5); WHITE BLOOD COUNT 14.5 K/uL (4.8-10.8)
--- NOTE | 2016-10-24 14:24 | CP.PCM.PN ---
Subjective - Date & Time of Evaluation Date of Evaluation: 10/24/16 Time of Evaluation: 08:00 - Subjective Subjective: clinically same Objective - Vital Signs/Intake and Output Vital Signs (last 24 hours): Temp Pulse Resp BP Pulse Ox 98.4 F 95 H 20 145/85 98 10/24/16 07:54 10/24/16 10:45 10/24/16 07:54 10/24/16 10:45 10/24/16 10:45 Intake and Output: 10/24/16 10/24/16 06:59 18:59 Intake Total 800 Output Total 10 Balance 790 - Medications Medications: Current Medications Amlodipine Besylate (Norvasc) 10 mg PO DAILY [facility] Last Admin: 10/24/16 09:53 Dose: 10 mg Docusate Sodium (Colace) 100 mg PO BID [facility] Last Admin: 10/24/16 09:53 Dose: 100 mg Enoxaparin Sodium (Lovenox) 30 mg SC DAILY [facility] Last Admin: 10/24/16 12:03 Dose: Not Given Heparin Sodium (Porcine) (Heparin) 5,000 units SC Q8 [facility] Last Admin: 10/17/16 21:20 Dose: 5,000 units Metronidazole (Flagyl) 500 mg in 100 mls @ 100 mls/hr IVPB Q8 [facility] Last Admin: 10/24/16 13:41 Dose: 100 mls/hr Insulin Human Regular (Novolin R) 0 unit SC ACHS [facility] PRN Reason: Protocol Last Admin: 10/24/16 12:04 Dose: 3 unit Metoclopramide HCl (Reglan) 10 mg IVP DAILY@ONCE PRN PRN Reason: Nausea/Vomiting Last Admin: 10/23/16 10:16 Dose: 10 mg Ondansetron HCl (Zofran Inj) 4 mg IVP Q4H PRN PRN Reason: Nausea/Vomiting Last Admin: 10/20/16 02:49 Dose: 4 mg Pantoprazole Sodium (Protonix Inj) 40 mg IVP DAILY [facility] Last Admin: 10/24/16 09:53 Dose: 40 mg - Labs Labs: 10/24/16 13:49 10/22/16 08:05 PT 12.9 SECONDS (9.7-12.2) H 10/17/16 06:38 INR 1.2 10/17/16 06:38 APTT 26 SECONDS (21-34) 10/17/16 06:38 - Constitutional Appears: Well - Head Exam Head Exam: ATRAUMATIC, NORMAL INSPECTION, NORMOCEPHALIC - Eye Exam Eye Exam: EOMI, Normal appearance, PERRL Pupil Exam: NORMAL ACCOMODATION, PERRL - ENT Exam ENT Exam: Mucous Membranes Moist, Normal Exam - Neck Exam Neck Exam: Full ROM, Normal Inspection. absent: Lymphadenopathy - Respiratory Exam Respiratory Exam: Decreased Breath Sounds - Cardiovascular Exam Cardiovascular Exam: REGULAR RHYTHM, +S1, +S2 - GI/Abdominal Exam GI & Abdominal Exam: Soft, Diminished Bowel Sounds - Rectal Exam Rectal Exam: Deferred
--- NOTE | 2016-10-24 14:37 | CP.PCM.PN ---
Subjective - Date & Time of Evaluation Date of Evaluation: 10/24/16 Time of Evaluation: 14:35 - Subjective Subjective: Service for Dr. Del Castillo. Pt seen/examined at bedside. No acute distress. No events overnight. Pt s/p cholecystectomy. Voiding and passing BMs. No fevers, chills, vomiting, diarrhea , chest pain, sob. Objective - Vital Signs/Intake and Output Vital Signs (last 24 hours): Temp Pulse Resp BP Pulse Ox 98.4 F 95 H 20 145/85 98 10/24/16 07:54 10/24/16 10:45 10/24/16 07:54 10/24/16 10:45 10/24/16 10:45 Intake and Output: 10/24/16 10/24/16 06:59 18:59 Intake Total 800 Output Total 10 Balance 790 - Medications Medications: Current Medications Amlodipine Besylate (Norvasc) 10 mg PO DAILY [facility] Last Admin: 10/24/16 09:53 Dose: 10 mg Docusate Sodium (Colace) 100 mg PO BID [facility] Last Admin: 10/24/16 09:53 Dose: 100 mg Enoxaparin Sodium (Lovenox) 30 mg SC DAILY [facility] Last Admin: 10/24/16 12:03 Dose: Not Given Heparin Sodium (Porcine) (Heparin) 5,000 units SC Q8 [facility] Last Admin: 10/17/16 21:20 Dose: 5,000 units Metronidazole (Flagyl) 500 mg in 100 mls @ 100 mls/hr IVPB Q8 [facility] Last Admin: 10/24/16 13:41 Dose: 100 mls/hr Insulin Human Regular (Novolin R) 0 unit SC ACHS [facility] PRN Reason: Protocol Last Admin: 10/24/16 12:04 Dose: 3 unit Metoclopramide HCl (Reglan) 10 mg IVP DAILY@ONCE PRN PRN Reason: Nausea/Vomiting Last Admin: 10/23/16 10:16 Dose: 10 mg Ondansetron HCl (Zofran Inj) 4 mg IVP Q4H PRN PRN Reason: Nausea/Vomiting Last Admin: 10/20/16 02:49 Dose: 4 mg Pantoprazole Sodium (Protonix Inj) 40 mg IVP DAILY [facility] Last Admin: 10/24/16 09:53 Dose: 40 mg - Labs Labs: 10/24/16 13:49 10/22/16 08:05 PT 12.9 SECONDS (9.7-12.2) H 10/17/16 06:38 INR 1.2 10/17/16 06:38 APTT 26 SECONDS (21-34) 10/17/16 06:38 - Constitutional Appears: Non-toxic, No Acute Distress - Head Exam Head Exam: ATRAUMATIC, NORMAL INSPECTION, NORMOCEPHALIC - Eye Exam Eye Exam: EOMI - ENT Exam ENT Exam: Mucous Membranes Moist - Neck Exam Neck Exam: Full ROM, Normal Inspection - Respiratory Exam Respiratory Exam: NORMAL BREATHING PATTERN. absent: Respiratory Distress - Cardiovascular Exam Cardiovascular Exam: +S1, +S2 - GI/Abdominal Exam GI & Abdominal Exam: Soft, Normal Bowel Sounds. absent: Tenderness - Extremities Exam Extremities Exam: Full ROM, Normal Inspection - Back Exam Back Exam: NORMAL INSPECTION - Neurological Exam Neurological Exam: Alert, Awake, Oriented x3 - Psychiatric Exam Psychiatric exam: Normal Affect, Normal Mood - Skin Skin Exam: Dry, Intact, Normal Color, Warm Assessment and Plan - Assessment and Plan (Free Text) Assessment: This is a 51 year old female with PMHx of diabetes, HTN, HLD, presented to ER with the sudden onset of abdominal pain, started night of 10/15 with associated nausea and vomiting. US showed evidence of cholecystitis and CBD dilation. Patient underwent MRCP, ERCP and stent placement into the common bile duct. Patient is s/p robotic laparoscopic cholecystectomy 1. acute cholecystitis and choledocholithiasis, transaminitis - GI consulted, Dr Coffman - s/p robotic laproscopic cholestectomy 10/19 - s/p ERCP with stent placement into common bile duct with Dr. Rodriguez 10/17 - MRCP showing intra/extra hepatic biliary dilation with distal CBD stone consistent with choledocholithiasis - LFTs downtrending - alk phos elevated, direct bili elevated - Gen Surg consulted, Dr Rivera - advance diet as tolerated -pt cleared for discharge by surgery -dilaudid for pain -bile culture shows E. Faecalis -colace for constipation -reglan and zofran for nausea. 2. Metabolic acidosis -resolved. 3. hx of DM -continue ISS 4. hx of HTN -continue norvasc daily 5. GI/DVT ppx -lovenox -protonix discussed with Dr. Del Castillo
[2016-10-24 14:40] LABS: BLOOD UREA NITROGEN 8 mg/dL (7-17); CALCIUM 9.4 mg/dl (8.6-10.4); CARBON DIOXIDE 29 mmol/L (22-30); CHLORIDE 91 mmol/L (98-107); GFR AFRICAN-AMERICAN > 60; POTASSIUM 3.9 mmol/L (3.6-5.2); SODIUM 134 mmol/L (132-148)
[2016-10-24 15:00] LABS: GLUCOSE,RANDOM 421 mg/dL (65-105)
[2016-10-24 15:53] VITALS: BP 145/81; PULSE 105; TEMP 97.7; O2SAT 95
--- NOTE | 2016-10-26 18:41 | CARD ---
APPROVED REPORT EKG Measurement Heart [id number] <Conclusion> Sinus rhythm with occasional premature ventricular complexes Inferior infarct, age undetermined Abnormal ECG
== END 2016-10-24 17:01 | disposition home or self-care (01) | DRG 493 ==
LOC: C.ER 09:37 → C.9I 17:09 → C.3T 10-19 18:08
PROVIDERS: ADMIT Internal Medicine Nephrology; ATTEND Internal Medicine Nephrology
PROC: 0F798DZ Dilation of Common Bile Duct with Intraluminal Device, Via Natural or Artificial Opening Endoscopic (ICD-10-PCS; 2016-10-17)
PROC: 0DNW4ZZ Release Peritoneum, Percutaneous Endoscopic Approach (ICD-10-PCS; 2016-10-18)
PROC: 8E0W4CZ Robotic Assisted Procedure of Trunk Region, Percutaneous Endoscopic Approach (ICD-10-PCS; 2016-10-18)
PROC: 0FT44ZZ Resection of Gallbladder, Percutaneous Endoscopic Approach (ICD-10-PCS; principal; 2016-10-18 11:45)
DX: K80.67 Calculus of gallbladder and bile duct with acute and chronic cholecystitis with obstruction (principal); E13.10 Other specified diabetes mellitus with ketoacidosis without coma; I10 Essential (primary) hypertension; R79.89 Other specified abnormal findings of blood chemistry; E78.00 Pure hypercholesterolemia, unspecified; K82.8 Other specified diseases of gallbladder; K59.00 Constipation, unspecified; K66.0 Peritoneal adhesions (postprocedural) (postinfection); K31.3 Pylorospasm, not elsewhere classified